=== PATIENT | male | born 1945 | race Caucasian/White ===

== ENCOUNTER → 2017-04-18 | Outpatient (CLI) | payer MEDICARE, OTHER ==
[~2017-04-18] MED LIST: AC325T PO; ACHD5005 PO; ALLO300T2 PO; ALLP300T PO; ASP325T PO; ASP325TEC; ASP81TEC PO; ASPI-983 PO; ATOR80TA76 PO; CARI350T27 PO; CARV12.52; CARV12.53 PO; CARV25TA; CEFE1FRO IV; CEFU500T PO; CEFU500T5 PO; CEPH500C PO; CITA10TA PO; CITA10TA7 PO; CLON0.5T3; CLON0.5T3 PO; CLONAZEPAM; CLOP75TA PO; CLOP75TA28 PO; CLPD75T; CPR500T PO; DGX.125T PO; DIGO125T PO; E400C PO; FLUT16SP22 NS; FLUT16SP22 NSEACH; FRSM40T PO; FURO40TA4 PO; GABA-490 PO; HYDR-2890 PO; HYDR-34 PO; LISI10TA2 PO; LSNP10T PO; MELO-195 PO; MELO15TA39 PO; METO-395 PO; METO100T5 PO; MULT-1029 PO; MULT1TAB63 PO; MV,C1TAB21 PO; NASACORT SPRAY; NF-METANX PO; OMG1KC; OMG1KC PO; OXYC-197 PO; OXYC-471 PO; PRAV40TA PO; PRV20T; SPIR25TA3 PO; SPRN25T PO; TRIA16.5; VITA400C60 PO
--- NOTE | 2017-04-18 12:41 | Diagnostic Imaging Report ---
INDICATION: Benign prostatic hypertrophy. TECHNIQUE: Multiple real-time grayscale sonographic images were obtained of the kidneys. COMPARISON: None FINDINGS: RIGHT KIDNEY: 10.0 x 4.5 x 6.8 cm. Two hypoechoic masses of the right kidney are present most compatible with cysts. Largest measuring 1.6 cm in size. Renal parenchyma otherwise unremarkable. No hydronephrosis. LEFT KIDNEY: 11.6 x 5.6 x 6.9 cm. There are multiple, approximately 7-8 hypoechoic areas of the left kidney favoring probable cyst. Largest in mid aspect at 5.6 x 6.3 x 5.5 cm in size. No hydronephrosis. URINARY BLADDER: Unremarkable in appearance. Bilateral ureteral jets are present. IMPRESSION: 1. Probable bilateral renal cysts left greater than right. Renal parenchyma otherwise unremarkable. No hydronephrosis. Dictated by: Dictated on workstation # [id number]
== END ==
LOC: RAD 09:32
PROVIDERS: ATTEND Urology
DX: N28.9 Disorder of kidney and ureter, unspecified (principal)
CPT/HCPCS: 76770

== ENCOUNTER → 2017-04-25 | Outpatient (CLI) | payer MEDICARE, OTHER | LOC: CARD 11:46 | PROVIDERS: ATTEND Internal Medicine Cardiovascular Disease | DX: I25.10 Atherosclerotic heart disease of native coronary artery without angina pectoris (principal); I11.0 Hypertensive heart disease with heart failure; I50.22 Chronic systolic (congestive) heart failure; E78.2 Mixed hyperlipidemia; G47.33 Obstructive sleep apnea (adult) (pediatric) | CPT/HCPCS: 93306 ==

== ENCOUNTER 2017-05-16 08:49 | Day surgery (SDC) | payer MEDICARE ==
[2017-05-16] VITALS (10 sets, daily range): BP systolic 102–118; BP diastolic 66–87
[~2017-05-16 08:49] MED LIST changes: -ASPI-983 PO; +METO-274 PO; -METO-395 PO; -MV,C1TAB21 PO; -VITA400C60 PO
[2017-05-16] MEDS ORDERED: NS IV 1000 ML 1,000 ML ONE (08:52)
--- OUTSIDE RECORDS SUMMARY | 2017-05-16 08:52 | XMS REPORT | Clinical Summary ---
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 If you do not see the information that you expected, contact Release of Information in the Health Information Management department at [phone] for further assistance in locating additional records.[facility] Allergies No Known Allergies Current Medications Prescription Sig. Disp. Refills Start End Date Status Date Aspirin 81 mg Tab Take 1 Tab by mouth Active daily. clonazePAM (KLONOPIN) 0.5 Take 0.5 mg by mouth at Active mg tablet bedtime daily. spironolactone Take 25 mg by mouth Active (ALDACTONE) 25 mg tablet daily. furosemide (LASIX) 40 mg Take 40 mg by mouth Active tablet daily. allopurinol (ZYLOPRIM) Take 300 mg by mouth Active 300 mg tablet daily. fluticasone (FLONASE) 50 Apply 2 Sprays to each Active mcg/actuation nasal spray nostril as directed daily. [place]-3 Fatty Take 1 Cap by mouth three Active Acids-Vitamin E (FISH times daily. OIL) 1,000 mg cap vitamin E 400 unit Take 400 Units by mouth Active capsule daily. MULTIVITAMIN PO Take 1 Tab by mouth Active daily. digoxin (LANOXIN) 125 mcg Take 0.125 mg by mouth Active tablet daily. METHYL-B12/L-MEFOLATE/B6 Take 1 Tab by mouth twice Active PHOS (METANX PO) daily. metoprolol XL (TOPROL XL) Take 1 Tab by mouth 90 Tab 2 05/21/20 Active 100 mg tablet daily. 14 clopiDOGrel (PLAVIX) 75 Take 1 Tab by mouth 30 Tab 11 11/22/19 Active mg tabletIndications: daily. 15 Chest pain, CAD (coronary artery disease), S/P CABG (coronary artery bypass graft), PVD (peripheral vascular disease) ([facility]), Chronic systolic heart failure ([facility]), Hypertension, Nonsustained ventricular tachycardia ([facility]), Type II diabetes mellitus ([facility]), BLANCA (obstructive sleep apnea), Restless leg syndrome atorvastatin (LIPITOR) 80 Take 1 Tab by mouth 90 Tab 3 11/22/19 Active mg tablet daily. 15 lisinopril (PRINIVIL; Take 1 Tab by mouth 90 Tab 3 01/07/20 Active ZESTRIL) 10 mg tablet daily. 15 Active Problems Problem Noted Date Ventricular tachycardia ([facility]) 11/20/2014 Ventricular fibrillation ([facility]) 11/20/2014 Defibrillator discharge 11/19/2014 Automatic implantable cardioverter-defibrillator in situ 06/11/2013 Overview: 08/10/10 Dual chamber Medtronic ICD implanted by Dr Cobos. Model [id number]. RA lead 5524M, RV lead Tim 6949. [place] Lead Alert for lead fracture. TIA (transient ischemic attack) 06/09/2013 S/P CABG (coronary artery bypass graft) 04/17/2013 Overview: 10/08/97 - CABG X 4, SVG to the OM1, OM2, SVG to the rPDA, MARTINEZ to the DX Type II diabetes mellitus ([facility]) 04/17/2013 Restless leg syndrome 04/17/2013 CAD (coronary artery disease) Overview: 10/08/97 - CABG X 4, SVG to the OM1, OM2, SVG to the rPDA, MARTINEZ to the DX 07/14/2004 - Cath: EF 30% - 100% mid LAD/MARTINEZ, 100% RCA, 100% SVG to OM1,OM2 08/11/2004 - PCI CX/OM with 3.5X16 Taxus 06/29/2008 - MPI: EF 20% fixed defect at the apex with small area of gwendolyn-infarct ischemia 09/23/2008 - Cath: subtotal occlusion of mid LAD, mild to moderate proximal CX with Left to right collateral to RCA, RCA 100%, SVG and MARTINEZ occluded. 04/17/13: Drug-eluting stent PCI of the CFX, CLOCKMAKER of RCA and LAD, per cath by Dr. Portillo Chronic systolic heart failure ([facility]) Overview: 08/10/10 - ICD - Medtronic 02/17/13 - Echocardiogram: EF 20-25%, moderate MR, mild AI, PAP ~ 30mm Hg, echogenic density at the apex possibly representing persistent apical thrombus. Hypertension PVD (peripheral vascular disease) (HCC) Nonsustained ventricular tachycardia (HCC) BLANCA (obstructive sleep apnea) Social History Tobacco Use Types Packs/Day Years Used Date Former Smoker 1.5 45 Quit: 06/22/2010 Sex Assigned at Date Recorded Not on file Last Filed Vital Signs Vital Sign Reading Time Taken Blood Pressure 106/54 11/21/2014 11:30 AM CDT Pulse 70 11/21/2014 11:30 AM CDT Temperature 36.5 C (97.7 F) 11/21/2014 11:30 AM CDT Respiratory Rate - - Oxygen Saturation 94% 11/21/2014 11:30 AM CDT Inhaled Oxygen - - Concentration Weight 121.7 kg (268 lb 4.8 oz) 11/19/2014 11:00 PM CDT Height 190.5 cm (6' 3") 11/19/2014 11:00 PM CDT Body Mass Index 33.54 11/19/2014 11:00 PM CDT Plan of Treatment Health Maintenance Due Date Last Done Comments PHYSICAL (COMPREHENSIVE) 1952 EXAM PERTUSSIS VACCINE 1955 TETANUS VACCINE 1961 COLORECTAL CANCER 1994 SCREENING SHINGLES VACCINE 2004 ABDOMINAL AORTIC ANEURYSM 2009 SCREENING PREVNAR/PNEUMOVAX (#1) 2009 INFLUENZA VACCINE 02/27/2017 Results Not on filefrom Last 3 Months
[2017-05-16] MEDS ORDERED: HEParin (CATH LAB) 2,000 ML IV ONE (08:53)
[2017-05-16] MEDS ORDERED: NS IV 1000 ML 1,000 ML IV SCH ×2 (09:15→12:09)
[2017-05-16 09:35] LABS: MEAN PLATELET VOLUME 11.5 FL (7.4-10.4); RED BLOOD COUNT 4.52 10^6/uL (4.35-5.85); RED CELL DISTRIBUTION WIDTH 14.5 % (10.0-14.5); WHITE BLOOD COUNT 5.9 10^3/uL (4.3-11.0)
--- NOTE | 2017-05-16 09:35 | Diagnostic Imaging Report ---
EXAMINATION: Portable upright radiograph of the chest. INDICATION: Peripheral vascular disease. FINDINGS: The heart is moderately enlarged. There is a pacemaker with 2 cardiac leads noted and post CABG changes. There is no significant focal infiltrate or a pulmonary vascular congestion. No effusion or pneumothorax. The mediastinum and amanda appear unremarkable. IMPRESSION: Marked cardiomegaly. Dictated by: Dictated on workstation # [id number]
[2017-05-16 09:46] LABS: PROTHROMBIN TIME PATIENT 13.7 SEC (12.2-14.7)
[2017-05-16 09:56] LABS: ALBUMIN 4.2 GM/DL (3.2-4.5); BILIRUBIN,TOTAL 1.6 MG/DL (0.1-1.0); CALCIUM 9.9 MG/DL (8.5-10.1); CREATININE SERUM 1.45 MG/DL (0.60-1.30); POTASSIUM 4.6 MMOL/L (3.6-5.0)
[2017-05-16] MEDS ORDERED: ASPI-983 PO (10:03)
[2017-05-16] MEDS ORDERED: OMG1KC PO (10:03)
[2017-05-16] MEDS ORDERED: MV,C1TAB21 PO (10:03)
[2017-05-16] MEDS ORDERED: VITA400C60 PO (10:03)
[2017-05-16] MEDS ORDERED: MIDAZOLAM 5 MG/5 ML (VERSED) VIAL ONE (11:16)
[2017-05-16] MEDS ORDERED: fentaNYL INJECTION 100 MCG/2 ML AMP ONE (11:16)
--- NOTE | 2017-05-16 11:30 | Cardiac Procedure Note-CS/ASA ---
Pre-Procedure Note Pre-Op Procedure Note H&P Reviewed The H&P was reviewed, patient examined and no changes noted. Date H&P Reviewed: May 16, 2017 Time H&P Reviewed: 11:30 Conscious Sedation Pre-Proced Time Reviewed: 11:30 ASA Class: 3 Airway Mallampati Classification: (three affiliated appropriate class) I. II. III, IV Lungs Heart ASA score ASA 1: a normal healthy patient ASA 2: a patient with a mild systemic disease (mid diabetes, controlled hypertension, obesity x ASA 3: a patient with a severe systemic disease that limits activity (angina , COPD, prior Myocardial infarction) ASA 4: a patient with an incapacitating disease that is a constant threat to life (CHF, renal failure) ASA 5: a moribund patient not expected to survive 24 hrs. (ruptured aneurysm) ASA 6: a declared brain patient whose organs are being harvested. For emergent operations, add the letter E after the classification Grade 3 Sedation Plan: Analgesia, Amnesia, Plan communicated to team members, Discussed options with patient/fam, Discussed risks with patient/fam Note The patient is an appropriate candidate to undergo the planned procedure, sedation, and anesthesia. The patient immediately re-assessed prior to indication. MALIK HINTON MD May 16, 2017 11:30
--- NOTE | 2017-05-16 12:10 | Discharge Inst-Post CATH ---
Discharge Inst-CATH Post Cardiac Cath D/C Inst Follow Up/Plan Appointment with Dr. Cobos's office in 2-4 weeks CARDIAC CATH DISCHARGE INSTRUCTIONS *Hold Metformin for 48 hours post heart cath. ACTIVITY * Go Home directly and rest. * Limit activity of the leg (or wrist if it was used) for 7 days including aerobics, swimming, jogging, bicycling, etc. * Restrict stair-climbing for 7 days if possible, if not, climb up with your non -cath leg, then bring together on the same step. * Avoid lifting, pushing, pulling or excessive movement of the affected extremity for 7 days. * Customary sexual activity may be resumed after 2 days-use caution not to use a position that strains or causes pain to the affected extremity. * No driving for 24 hours. * NO SMOKING. * Avoid straining for bowel movements for 7 days. * Gentle walking on level ground is allowed. * Returning to work will depend on the type of procedure and the results. Your doctor will discuss this with you. CALL YOUR DOCTOR FOR ANY OF THE FOLLOWING: *If bleeding from the puncture site occurs- Apply gentle pressure to site with clean cloth and call your doctor or EMS. * If a knot or lump forms under the skin, increases in size, or causes pain. * If bruising appears to be worsening or moving further down your leg instead of disappearing. * Temperature above 101 F. CARE OF YOUR GROIN INCISION; * Bruising or purple discoloration of the skin near the puncture site is common. * You may shower only, no bathtub bathing for 5 days. Be careful to avoid slipping as your leg may feel stiff. * If a closure device was used on your femoral artery, please see the attached guide regarding care of the device and your leg. * REMOVE the dressing from your groin the next day after your procedure in the shower. CARE OF YOUR WRIST INCISION; * Bruising or purple discoloration of the skin near the puncture site is common. * You may shower. * DO NOT submerge wrist. * Remove dressing in 24 hours. MALIK COBOS MD May 16, 2017 12:10
[2017-05-16] MEDS ORDERED: PATIENT MAY USE OWN MEDS, ALL PO SCH (12:15)
--- NOTE | 2017-05-16 12:15 | Peripheral Report ---
Peripheral Report Physician (s)/Document Control Manager (s) Physician MALIK HINTON MD Pre-Procedure Diagnosis Pre-Procedure Diagnosis: peripheral arterial disease Post-Procedure Note Procedure Start Date: May 16, 2017 Name of Procedure: Abdominal aortogram Bilateral lower except he ran out of First order Findings/Procedure Note PROCEDURE NOTE: After explaining the procedure to the patient, all pros and cons were explained, all questions were answered. The patient signed the consent and then she was placed on the cardiac catheterization laboratory. The patient was placed on the cardiac catheterization laboratory. Groin was prepped SL fashion local anesthesia was used. Sheath placed in the left femoral artery, left lower excision runoff was done through the sheath then REM catheter was advanced to the right common iliac artery and runoff on 2 different injections to the right lower except he was done. The rim catheter was pulled back and then advanced in the abdominal aorta and abdominal aortic angiogram was done. Addendum the procedure sheath was removed, closure device used FINDINGS: Abdominal aortogram: Aneurysmal dilatation at the abdominal aorta infrarenally and involving the bifurcation. Heavily calcified arteries Left Lower runoff: Heavily calcified artery with diffuse atherosclerotic disease and slow flow down to the trifurcation, aneurysmal dilation in the popliteal arteries at 2 segments. Right lower extremity runoff: Heavily calcified artery down to the trifurcation with slow flow CONCLUSIONS: 1. Abdominal aortic aneurysm, heavily calcified artery involving the bifurcation 2. Heavily calcified arteries bilaterally with slow flow down to the trifurcation, aneurysm was noted in the popliteal artery on the left side at 2 segments. 3. The arteries below the trifurcation were not well visualized due to the extremely slow flow DISCUSSION AND RECOMMENDATIONS: Medical therapy Anesthesia Type: Conscious Sedation Estimated blood loss (mL): 5 ml Contrast Amount: 25 ml Total Radiation Dose: 231 mGy Post-Procedure Diagnosis Post-operative diagnosis: Peripheral arterial disease Coronary artery disease Hypertension Abdominal aortic aneurysm MALIK HINTON MD May 16, 2017 12:15 pm
== END 2017-05-16 16:45 | disposition home or self-care (01) ==
LOC: CATH 08:49 → SURG 12:27 → CATH 16:45
PROVIDERS: ATTEND Internal Medicine Cardiovascular Disease
DX: I70.203 Unspecified atherosclerosis of native arteries of extremities, bilateral legs (principal); I71.4 Abdominal aortic aneurysm, without rupture; I70.0 Atherosclerosis of aorta; I25.10 Atherosclerotic heart disease of native coronary artery without angina pectoris; E78.2 Mixed hyperlipidemia; I50.22 Chronic systolic (congestive) heart failure; I25.82 Chronic total occlusion of coronary artery; G47.33 Obstructive sleep apnea (adult) (pediatric); G25.81 Restless legs syndrome; N18.9 Chronic kidney disease, unspecified; E11.22 Type 2 diabetes mellitus with diabetic chronic kidney disease; I12.9 Hypertensive chronic kidney disease with stage 1 through stage 4 chronic kidney disease, or unspecified chronic kidney disease; Z95.1 Presence of aortocoronary bypass graft; Z95.0 Presence of cardiac pacemaker; Z79.899 Other long term (current) drug therapy
CPT/HCPCS: 36245; 36415; 71010; 75625; 75716; 80053; 85027; 85610; 85730; 87081

== ENCOUNTER → 2017-06-19 | Outpatient (CLI) | payer MEDICARE ==
[~2017-06-19] MED LIST changes: +ASPI-983 PO; -METO-274 PO; +METO-395 PO; +MV,C1TAB21 PO; +VITA400C60 PO
--- NOTE | 2017-06-19 17:55 | Diagnostic Imaging Report ---
Renal ultrasound. INDICATION: Chronic renal disease. FINDINGS: The right kidney is 10.9 cm and the left kidney is 16 cm in length. This relates to an inferior pole cyst and approximate estimate of the parenchymal length without the cyst is about 12.5 cm on the left side. There are multiple simple cysts in the left kidney, the largest is 6.5 cm in size. This is similar to prior exams. The right kidney also demonstrates simple cysts up to 1.4 cm in size. There is an incidental simple cyst also seen in the lower aspect of the right hepatic lobe measuring 2 cm. No hydronephrosis. No solid mass in the kidneys. The urinary bladder appears unremarkable. IMPRESSION: Multiple bilateral cysts with no solid mass or hydronephrosis. Dictated by: Dictated on workstation # [id number]
== END ==
LOC: RAD 10:28
PROVIDERS: ATTEND Nurse Practitioner
DX: N28.1 Cyst of kidney, acquired (principal); N18.3 Chronic kidney disease, stage 3 (moderate)
CPT/HCPCS: 76770

== ENCOUNTER → 2017-09-20 | Outpatient (CLI) | payer MEDICARE, OTHER ==
[~2017-09-20] MED LIST changes: +IOHEXOL 350 MG/ML 100 ML (OMNIPAQUE 350) VIAL IV ONE; +NS 250 ML (IVPB) BAG IV ONE
[2017-09-20 12:13] LABS: CREATININE SERUM 1.45 MG/DL (0.60-1.30)
--- NOTE | 2017-09-20 14:53 | Diagnostic Imaging Report ---
PROCEDURE: CT thoracic and lumbar spine with contrast. TECHNIQUE: After uneventful intravenous administration of contrast, axial images were obtained through the thoracic and lumbar spine. Sagittal and coronal reformations were also performed. INDICATION: Bilateral leg weakness and numbness. COMPARISON: No prior studies are available for comparison. FINDINGS: Curvature and alignment of the thoracic spine appears normal. The vertebral body heights are maintained. No acute fracture is identified. There is significant degenerative change throughout the thoracic and lumbar spine with variable disc space narrowing and marginal osteophyte formation. There are significant hypertrophic facet degenerative changes in the lower lumbar spine. A prominent left paracentral osteophyte at the T1-T2 level does result in left lateral recess stenosis. Prominent right posterolateral osteophyte at T2-T3 results in right lateral recess and neuroforaminal stenosis. Similar findings identified on the right at the T3-T4 level. Small right paracentral osteophyte is seen at T5-T6 with a large right paracentral osteophyte at T6-T7 level resulting in right lateral recess stenosis. Marginal osteophytes on the right side at T9-T10 level do result in right-sided lateral recess and neuroforaminal stenosis. Lumbar spine does show fairly significant ligamentous thickening, broad-based disc/osteophyte complex, and facet changes resulting in significant trefoil stenosis through the canal at the L1-L2, L2-L3 levels. This is severe at L3-L4 and L4-L5 levels where there is marked spinal stenosis and marked hypertrophic facet changes. L5-S1 is unremarkable. There appears to be severe right neuroforaminal stenosis at the L4-L5 level and severe bilateral lateral recess stenosis. Fairly significant neuroforaminal stenosis at L3-L4 level is also seen. No definite abnormal enhancement is identified on the post contrast images. Paraspinous tissues demonstrate some low densities in bilateral kidneys, likely cysts. There are some low densities in the liver, not entirely included on this study and may represent hepatic cysts. These could be evaluated with ultrasound for confirmation. IMPRESSION: 1. Severe thoracolumbar spondylosis with multilevel lateral recess, neuroforaminal and central canal stenosis, described level by level above. This is very severe in the lumbar spine, as described. No acute compression fracture is detected. 2. Probable hepatic and renal cysts. This could be further characterized with ultrasound. Dictated by: Dictated on workstation # [id number]
== END ==
LOC: RAD 11:38
PROVIDERS: ATTEND Family Medicine
DX: M48.04 Spinal stenosis, thoracic region (principal); M48.061 Spinal stenosis, lumbar region without neurogenic claudication; M47.815 Spondylosis without myelopathy or radiculopathy, thoracolumbar region; M89.38 Hypertrophy of bone, other site
CPT/HCPCS: 36415; 72129; 72132; 82565; 84520

== ENCOUNTER 2017-11-29 09:23 | Outpatient (RCR) | payer MEDICARE, OTHER ==
[~2017-11-29 09:23] MED LIST changes: -IOHEXOL 350 MG/ML 100 ML (OMNIPAQUE 350) VIAL IV ONE; -NS 250 ML (IVPB) BAG IV ONE
== END 2017-11-29 11:25 | disposition home or self-care (01) ==
PROVIDERS: ATTEND Family Medicine
DX: R26.89 Other abnormalities of gait and mobility (principal)

== ENCOUNTER → 2018-02-25 | Outpatient (CLI) | payer MEDICARE, OTHER ==
[~2018-02-25] MED LIST changes: +CLON0.5T13 PO; -SPIR25TA3 PO; +SPIR25TA5 PO
--- NOTE | 2018-02-25 16:56 | Diagnostic Imaging Report ---
INDICATION: Spinal stenosis and neurogenic claudication. TECHNIQUE: AP and lateral views of the lumbar spine were obtained including bending views. COMPARISON: 05/15/2007. FINDINGS: The lumbar vertebrae are normal in height. There are bulky anterior osteophytes throughout the levels from T12 through L3. There are small osteophytes at L4 and L5. There is facet degenerative change at L3-4, L4-5, and L5-S1. There is about 4 mm of anterolisthesis of L4 on L5 in the neutral position. This does not appear to change between flexion and extension. There is no subluxation at any other level. Aortic calcifications are noted. IMPRESSION: Multilevel degenerative changes in the lumbar spine as described above. There is anterolisthesis of L4 on L5 which does not appear to change between flexion and extension. Dictated by: Dictated on workstation # [id number]
== END ==
LOC: RAD 16:08
PROVIDERS: ATTEND Neurological Surgery
DX: M48.062 Spinal stenosis, lumbar region with neurogenic claudication (principal); M43.16 Spondylolisthesis, lumbar region; M47.817 Spondylosis without myelopathy or radiculopathy, lumbosacral region; I70.0 Atherosclerosis of aorta
CPT/HCPCS: 72114

== ENCOUNTER 2018-04-25 15:04 | Outpatient (RCR) | payer MEDICARE, OTHER ==
[~2018-04-25 15:04] MED LIST changes: -OXYC-197 PO; +OXYC1TAB87 PO
== END 2018-04-30 08:10 | disposition home or self-care (01) ==
PROVIDERS: ATTEND Neurological Surgery
DX: M48.062 Spinal stenosis, lumbar region with neurogenic claudication (principal); M43.16 Spondylolisthesis, lumbar region

== ENCOUNTER → 2018-05-16 | Outpatient (CLI) | payer MEDICARE, OTHER ==
--- NOTE | 2018-05-16 11:30 | Diagnostic Imaging Report ---
PROCEDURE: US Renal Bilateral. TECHNIQUE: Multiple real-time grayscale images were obtained over the kidneys in various projections bilaterally. INDICATION: Renal cysts. Comparison is made with prior renal ultrasound from 06/19/2017. FINDINGS: The right kidney measures 10.3 x 4.8 x 6.1 cm and the left kidney measures 9.4 x 6.9 x 5.7 cm. Cortical thickness and echogenicity is normal. There are cysts involving the right kidney. A mid right renal cyst is approximately 15 mm in size, stable. A cyst along the inferior right kidney laterally is approximately 15 mm x 18 mm, stable. Left kidney also contains multiple cysts, largest approximately 6.2 x 6.6 cm, stable. No calculi or hydronephrosis is identified. The bladder is unremarkable. Bilateral ureteral jets are visualized. IMPRESSION: Stable bilateral renal cysts when compared with prior study from 06/19/2017. No calculi, hydronephrosis or solid renal mass is identified. Dictated by: Dictated on workstation # [id number]
== END ==
LOC: RAD 09:04
PROVIDERS: ATTEND Nurse Practitioner
DX: N28.1 Cyst of kidney, acquired (principal); I12.9 Hypertensive chronic kidney disease with stage 1 through stage 4 chronic kidney disease, or unspecified chronic kidney disease; N18.3 Chronic kidney disease, stage 3 (moderate); E11.22 Type 2 diabetes mellitus with diabetic chronic kidney disease; E78.5 Hyperlipidemia, unspecified; M10.9 Gout, unspecified; I48.91 Unspecified atrial fibrillation; M19.90 Unspecified osteoarthritis, unspecified site; F41.9 Anxiety disorder, unspecified; D69.6 Thrombocytopenia, unspecified; N25.81 Secondary hyperparathyroidism of renal origin; G62.9 Polyneuropathy, unspecified
CPT/HCPCS: 76770

== ENCOUNTER 2018-07-11 10:30 | Outpatient (RCR) | payer MEDICARE, OTHER | END 2018-07-30 | disposition home or self-care (01) | PROVIDERS: ATTEND Neurological Surgery | DX: M48.062 Spinal stenosis, lumbar region with neurogenic claudication (principal); M43.16 Spondylolisthesis, lumbar region ==

== ENCOUNTER → 2018-07-26 | Outpatient (CLI) | payer MEDICARE, OTHER | LOC: CARD 13:12 | PROVIDERS: ATTEND Internal Medicine Interventional Cardiology | DX: I50.22 Chronic systolic (congestive) heart failure (principal); I25.5 Ischemic cardiomyopathy; I47.2 Ventricular tachycardia; I08.1 Rheumatic disorders of both mitral and tricuspid valves | CPT/HCPCS: 93306 ==

== ENCOUNTER 2018-09-12 05:28 | Outpatient (CLI) | payer MEDICARE, OTHER ==
[~2018-09-12] VITALS: Ht 190.5 cm; Wt 127.0 kg
[~2018-09-12 05:28] MED LIST changes: +AMIO200T4 PO; +ATOR20TA66 PO; +LISI2.5T PO; +NITR0.4T42 SL; +TERB250T16 PO
== END 2018-09-12 13:52 | disposition home or self-care (01) ==
LOC: PREOP 05:28
PROVIDERS: ATTEND Surgery
DX: Z01.818 Encounter for other preprocedural examination (principal)

== ENCOUNTER 2018-09-23 10:57 | Day surgery (SDC) | payer MEDICARE, OTHER ==
[~2018-09-23] VITALS: Ht 190.5 cm; Wt 127.0 kg
--- OUTSIDE RECORDS SUMMARY | 2018-09-23 11:01 | XMS REPORT | Clinical Summary ---
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 If you do not see the information that you expected, contact Release of Information in the Health Information Management department at [phone] for further assistance in locating additional records.[facility] Allergies No Known Allergies Medications End Date Status Medication Sig Dispensed Refills Start Date Active Aspirin 81 mg Tab Take 1 Tab by 0 mouth daily. Active clonazePAM (KLONOPIN) 0.5 Take 0.5 mg 0 mg tablet by mouth at bedtime daily. Active spironolactone Take 25 mg by 0 (ALDACTONE) 25 mg tablet mouth daily. Active furosemide (LASIX) 40 mg Take 40 mg by 0 tablet mouth daily. Active allopurinol (ZYLOPRIM) Take 300 mg 0 300 mg tablet by mouth daily. Active fluticasone (FLONASE) 50 Apply 2 0 mcg/actuation nasal spray Sprays to each nostril as directed daily. Active [place]-3 Fatty Take 1 Cap by 0 Acids-Vitamin E (FISH mouth three OIL) 1,000 mg cap times daily. Active vitamin E 400 unit Take 400 0 capsule Units by mouth daily. Active MULTIVITAMIN PO Take 1 Tab by 0 mouth daily. Active digoxin (LANOXIN) 125 mcg Take 0.125 mg 0 tablet by mouth daily. Active METHYL-B12/L-MEFOLATE/B6 Take 1 Tab by 0 PHOS (METANX PO) mouth twice daily. Active metoprolol XL (TOPROL XL) Take 1 Tab by 90 Tab 2 100 mg tablet mouth daily. 4 Active clopiDOGrel (PLAVIX) 75 Take 1 Tab by 30 Tab 11 mg tabletIndications: mouth daily. 5 Chest pain, CAD (coronary artery disease), S/P CABG (coronary artery bypass graft), PVD (peripheral vascular disease) ([facility]), Chronic systolic heart failure ([facility]), Hypertension, Nonsustained ventricular tachycardia ([facility]), Type II diabetes mellitus ([facility]), BLANCA (obstructive sleep apnea), Restless leg syndrome Active atorvastatin (LIPITOR) 80 Take 1 Tab by 90 Tab 3 mg tablet mouth daily. 5 Active lisinopril (PRINIVIL; Take 1 Tab by 90 Tab 3 ZESTRIL) 10 mg tablet mouth daily. 5 Active Problems Problem Noted Date Ventricular tachycardia 11/20/2014 Ventricular fibrillation 11/20/2014 Defibrillator discharge 11/19/2014 Automatic implantable cardioverter-defibrillator in situ 06/11/2013 Overview: 08/10/10 Dual chamber Medtronic ICD implanted by Dr Cobos. Model [id number]. RA lead 5524M, RV lead Tim 6949. [place] Lead Alert for lead fracture. TIA (transient ischemic attack) 06/09/2013 S/P CABG (coronary artery bypass graft) 04/17/2013 Overview: 10/08/97 - CABG X 4, SVG to the OM1, OM2, SVG to the rPDA, MARTINEZ to the DX Type II diabetes mellitus 04/17/2013 Restless leg syndrome 04/17/2013 CAD (coronary [...] 04/17/13: Drug-eluting stent PCI of the CFX, FILLER IN of RCA and LAD, per cath by Dr. Portillo Chronic systolic heart failure Overview: 1/12/11 - ICD - Medtronic 02/17/13 - Echocardiogram: EF 20-25%, moderate MR, mild AI, PAP ~ 30mm Hg, echogenic density at the apex possibly representing persistent apical thrombus. Hypertension PVD (peripheral vascular disease) Nonsustained ventricular tachycardia BLANCA (obstructive sleep apnea) Social History Date Tobacco Use Types Packs/Day Years Used Quit: 06/22/2010 Former Smoker 1.5 44 Sex Assigned at Date Recorded Not on file Industry Job Start Date Occupation Not on file Not on file Not on file Travel End Travel History Travel Start No recent travel history available. Last Filed Vital Signs Time Taken Vital Sign Reading 11/21/2014 11:30 AM CDT Blood Pressure 106/54 11/21/2014 11:30 AM CDT Pulse 70 11/21/2014 11:30 AM CDT Temperature 36.5 C (97.7 F) - Respiratory Rate - 11/21/2014 11:30 AM CDT Oxygen Saturation 94% - Inhaled Oxygen - Concentration 11/19/2014 11:00 PM CDT Weight 121.7 kg (268 lb 4.8 oz) 11/19/2014 11:00 PM CDT Height 190.5 cm (6' 3") 11/19/2014 11:00 PM CDT Body Mass Index 33.54 Plan of Treatment Health Maintenance Due Date Last Done Comments PHYSICAL (COMPREHENSIVE) 1952 EXAM DTAP/TDAP VACCINES (1 - 1962 Tdap) COLORECTAL CANCER 1994 SCREENING SHINGLES RECOMBINANT 1994 VACCINE (1 of 2) ABDOMINAL AORTIC ANEURYSM 2009 SCREENING PNEUMONIA (PCV13/PPSV23) 2009 VACCINES (1 of 2 - PCV13) INFLUENZA VACCINE 02/27/2018 Implants Device Identifier Shelf Expiration Date Model / Serial / Lot Implanted Type Area Manufactur er Icd ICD Results Not on filefrom Last 3 Months Insurance Payer Benefit Subscriber ID Type Phone Address Plan / Group MEDICARE MEDICARE xxxxxxxxxx Medicare PART A AND B GENERIC COMMERCIAL GENERIC xxxxxxxxx Indemnity COMMERCIAL ([place]) [place] [address] Advance Directives Patient has advance care planning documents, and code status on file. For more information, please contact: [facility] [address] [place] [address] Date Inactivated Comments Code Status Date Activated 11/21/2014 1:46 PM Full Code 11/19/2014 11:23 PM Provider has discussed Code Status Yes w/Patient or Family? 04/18/2013 1:01 PM Full Code 04/17/2013 8:18 AM Provider has discussed Code Status No, more discussion w/Patient or Family? needed
--- OUTSIDE RECORDS SUMMARY | 2018-09-23 11:03 | XMS REPORT | CCD ---
Author Author [facility] Organization [facility] Address [address] [place] [address] Phone Care Team Providers Care Bobj Developer Name Role Phone PP Unavailable CCM Unavailable Summary Purpose Interface Exchange Insurance Providers Payer name Policy type / Coverage type Covered constitution party ID Effective Begin Date Effective End Date WPS Medicare Part B Medicare Part B [id number] Unknown Anagran Medicare Part B No Plan Member ID Provided 2018 Unknown Family history Sister Diagnosis Age At Onset Hypertension Unknown Diabetes mellitus Type 2 Unknown Father Diagnosis Age At Onset Diabetes mellitus Type 2 Unknown Arthritis Unknown Hypertension Unknown Myocardial infarction Unknown Social History Social History Element Codes Description Effective Dates Marital status Unknown Cely 04/11/2017 Number of children Unknown 5 04/11/2017 Living arrangements Unknown House 04/11/2017 Employment Unknown 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 ICD-9: 428.42 ICD-10: I50.42 Active 09/04/2018 Unknown Essential (primary) hypertension ICD-9: 401.1 ICD-10: I10 Active 04/11/2017 Unknown Muscle weakness (generalized) ICD-9: 728.87 ICD-10: M62.81 Active 09/12/2017 Unknown Other fatigue ICD-9: 780.79 ICD-10: R53.83 Active 09/04/2018 Unknown Cellulitis of back [any part except buttock] ICD-9: 682.2 ICD-10: L03.312 Active 09/04/2018 Unknown Sebaceous cyst ICD-9: 706.2 ICD-10: L72.3 Active 09/04/2018 Unknown Low back pain ICD-9: 724.2 ICD-10: M54.5 Active 09/12/2017 Unknown Pain in left leg ICD-9 : 729.5 ICD-10: M79.605 Active 07/25/2018 Unknown Pain in right leg ICD- 9: 729.5 ICD-10: M79.604 Active 07/25/2018 Unknown Sacrococcygeal disorders, not elsewhere classified ICD-9: 724.6 ICD-10: M53.3 Active 07/25/2018 Unknown Encounter for general adult medical examination with abnormal findings ICD-9: V70.0 ICD-10: Z00.01 Active 05/30/2018 Unknown Rash and other nonspecific skin eruption ICD-9: 782.1 ICD-10: R21 Active 03/06/2018 Unknown Corns and callosities ICD-9: 700 ICD-10: L84 Active 04/10/2018 Unknown Other specified polyneuropathies ICD-9: 356.8 ICD-10: G62.89 Active 04/10/2018 Unknown Mixed hyperlipidemia ICD-9: 272.2 ICD-10: E78.2 Active 04/11/2017 Unknown Problems Condition Codes Effective Dates Condition Status 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 ICD-9: 428.42 ICD-10: I50.42 09/04/2018 Active Essential (primary) hypertension ICD-9: 401.1 ICD-10: I10 04/11/2017 Active Muscle weakness (generalized) ICD-9: 728.87 ICD-10: M62.81 09/12/2017 Active Other fatigue ICD-9: 780.79 ICD-10: R53.83 09/04/2018 Active Cellulitis of back [any part except buttock] ICD-9: 682.2 ICD-10: L03.312 09/04/2018 Active Sebaceous cyst ICD-9: 706.2 ICD-10: L72.3 09/04/2018 Active Low back pain ICD-9: 724.2 ICD-10: M54.5 09/12/2017 Active Pain in left leg ICD-9 : 729.5 ICD-10: M79.605 07/25/2018 Active Pain in right leg ICD- 9: 729.5 ICD-10: M79.604 07/25/2018 Active Sacrococcygeal disorders, not elsewhere classified ICD-9: 724.6 ICD-10: M53.3 07/25/2018 Active Encounter for general adult medical examination with abnormal findings ICD-9: V70.0 ICD-10: Z00.01 05/30/2018 Active Rash and other nonspecific skin eruption ICD-9: 782.1 ICD-10: R21 03/06/2018 Active Corns and callosities ICD-9: 700 ICD-10: L84 04/10/2018 Active Other specified polyneuropathies ICD-9: 356.8 ICD-10: G62.89 04/10/2018 Active Mixed hyperlipidemia ICD-9: 272.2 ICD-10: E78.2 04/11/2017 Active Medications Medication Codes Instructions Start Date Stop Date Status Fill Instructions clobetasol 0.05 % topical cream RxNorm: 121303 2 Gram(s) TOP BID 09/04/2018 11/02/2018 Active clotrimazole 1 % topical cream RxNorm: 661645 2 Gram(s) TOP BID 09/04/2018 11/02/2018 Active citalopram 20 mg tablet RxNorm: 230149 1 Tablet(s) PO daily 12/2018 No Stop Date Active Keflex 500 mg capsule RxNorm: 589799 1 Capsule(s) PO QID 201809/13/2018 Inactive metoprolol succinate ER 100 mg tablet,extended release 24 hr RxNorm: 161251 TAKE 1 TABLET BY MOUTH ONCE DAILY 09/02/2018 No Stop Date Active terbinafine HCl 250 mg tablet RxNorm: 362835 TAKE 1 TABLET BY MOUTH ONCE DAILY 08/27/2018 No Stop Date Active gabapentin 400 mg capsule RxNorm: 798304 1 Capsule(s) PO UD TAKE 1 CAPSULE BY MOUTH in morning, afternoon and two at bedtime 07/25/2018 No Stop Date Active gabapentin 400 mg capsule RxNorm: 782129 TAKE 1 CAPSULE BY MOUTH THREE TIMES DAILY 07/01/2018 07/24/2018 Inactive allopurinol 300 mg tablet RxNorm: 355481 TAKE 1 TABLET BY MOUTH ONCE DAILY 06/25/2018 No Stop Date Active clonazepam 0.5 mg tablet RxNorm: 099582 1 Tablet(s) PO QHS as needed 06/25/2018 09/22/2018 Active citalopram 10 mg tablet RxNorm: 578990 TAKE 1 TABLET BY MOUTH ONCE DAILY 06/19/2018 09/03/2018 Inactive terbinafine HCl 250 mg tablet RxNorm: 623819 TAKE 1 TABLET BY MOUTH ONCE DAILY 05/20/2018 08/26/2018 Inactive atorvastatin 80 mg tablet RxNorm: 301127 1/2 Tablet(s) PO daily 05/08/2018 No Stop Date Active clobetasol 0.05 % topical cream RxNorm: 557667 2 Gram(s) TOP BID 05/08/2018 07/06/2018 Inactive clotrimazole 1 % topical cream RxNorm: 958825 2 Gram(s) TOP BID 05/08/2018 07/06/2018 Inactive allopurinol 300 mg tablet RxNorm: 868233 TAKE 1 TABLET BY MOUTH ONCE DAILY 05/06/2018 06/24/2018 Inactive terbinafine HCl 250 mg tablet RxNorm: 656835 1 Tablet(s) PO daily 04/23/2018 05/19/2018 Inactive gabapentin 400 mg capsule RxNorm: 453519 TAKE 1 CAPSULE BY MOUTH THREE TIMES DAILY 04/22/2018 06/30/2018 Inactive clotrimazole 1 % topical cream RxNorm: 369761 2 Gram(s) TOP BID 04/10/2018 04/23/2018 Inactive clobetasol 0.05 % topical cream RxNorm: 924078 2 Gram(s) TOP BID 04/10/2018 04/23/2018 Inactive clonazepam 0.5 mg tablet RxNorm: 322593 1 Tablet(s) PO QHS as needed 03/19/2018 09/17/2018 Inactive clobetasol 0.05 % topical cream RxNorm: 550306 2 Gram(s) TOP BID 03/06/2018 03/19/2018 Inactive clotrimazole 1 % topical cream RxNorm: 567854 2 Gram(s) TOP BID 03/06/2018 03/19/2018 Inactive metoprolol succinate ER 100 mg tablet,extended release 24 hr RxNorm: 990703 TAKE 1 TABLET BY MOUTH ONCE DAILY 02/25/2018 Inactive gabapentin 400 mg capsule RxNorm: 425833 TAKE 1 CAPSULE BY MOUTH THREE TIMES DAILY 02/21/2018 04/21/2018 Inactive citalopram 10 mg tablet RxNorm: 562783 1 Tablet(s) PO daily 06/201806/06/2018 Inactive allopurinol 300 mg tablet RxNorm: 399425 TAKE 1 TABLET BY MOUTH ONCE DAILY 01/28/2018 05/05/2018 Inactive clonazepam 0.5 mg tablet RxNorm: 280492 1 Tablet(s) PO QHS as needed 01/14/2018 03/12/2018 Inactive fluticasone 50 mcg/actuation nasal spray,suspension RxNorm: 5882200 USE ONE SPRAY( S) IN EACH NOSTRIL ONCE DAILY 12/20/2017 No Stop Date Active allopurinol 300 mg tablet RxNorm: 414609 TAKE ONE TABLET BY MOUTH ONCE DAILY 10/18/2017 01/27/2018 Inactive clonazepam 0.5 mg tablet RxNorm: 295141 1 Tablet(s) PO QHS as needed 10/11/2017 01/07/2018 Inactive gabapentin 400 mg capsule RxNorm: 224059 TAKE ONE CAPSULE BY MOUTH THREE TIMES DAILY 09/19/2017 02/20/2018 Inactive metoprolol succinate ER 100 mg tablet,extended release 24 hr RxNorm: 464334 TAKE ONE TABLET BY MOUTH ONCE DAILY 09/19/2017 02/24/2018 Inactive clonazepam 0.5 mg tablet RxNorm: 438980 1 Tablet(s) PO QHS as needed 08/14/2017 05/07/2018 Inactive fluticasone 50 mcg/actuation nasal spray,suspension RxNorm: 0833043 1 [place] NASAL daily 08/09/2017 12/19/2017 Inactive amoxicillin 500 mg capsule RxNorm: 954742 1 Capsule(s) PO TID 07/27/2017 08/02/2017 Inactive amoxicillin 500 mg capsule RxNorm: 139912 1 Capsule(s) PO TID 07/27/2017 07/26/2017 Inactive allopurinol 300 mg tablet RxNorm: 436821 1 Tablet(s) PO daily 06/27/2017 09/24/2017 Inactive Keflex 500 mg capsule RxNorm: 364144 1 Capsule(s) PO TID 201606/07/2017 Inactive Take probiotic TID while on ABT Keflex 500 mg capsule RxNorm: 247909 1 Capsule(s) PO TID 201606/14/2017 Inactive Take probiotic TID while on ABT clonazepam 0.5 mg tablet RxNorm: 525833 1 Tablet(s) PO QHS as needed 04/30/2017 05/07/2018 Inactive meloxicam 15 mg tablet RxNorm: 230631 1 Tablet(s) PO daily 09/11/2017 Inactive metoprolol succinate ER 100 mg tablet,extended release 24 hr RxNorm: 670212 1 Tablet(s) PO daily 04/16/2017 09/12/2017 Inactive gabapentin 400 mg capsule RxNorm: 243913 1 Capsule(s) PO TID 09/12/2017 Inactive Complete Multivitamin oral RxNorm: 64602 oral No Start Date Active Aspirin Low Dose 81 mg tablet,delayed release RxNorm: 353011 2 Tablet(s) PO daily No Start Date Active furosemide 40 mg tablet RxNorm: 827088 1 Tablet(s) PO daily No Start Date Active spironolactone 25 mg tablet RxNorm: 710789 1 Tablet(s) PO daily No Start Date Active amiodarone 200 mg tablet RxNorm: 774003 1 Tablet(s) PO daily No Start Date Active Fish Oil capsule RxNorm: Capsule(s) PO No Start Date Active vitamin E 400 unit capsule RxNorm: 277166 1 Capsule(s) PO daily No Start Date Active citalopram 10 mg tablet RxNorm: 441214 1 Tablet(s) PO daily No Start Date 02/06/2018 Inactive lisinopril 10 mg tablet RxNorm: 238363 1 Tablet(s) PO daily No Start Date 05/07/2018 Inactive lisinopril 2.5 mg tablet RxNorm: 997573 1 Tablet(s) PO daily No Start Date 09/17/2018 Inactive digoxin 125 mcg tablet RxNorm: 614038 1 Tablet(s) PO daily No Start Date 05/07/2018 Inactive Lamisil oral RxNorm: oral No Start Date Inactive atorvastatin 80 mg tablet RxNorm: 610245 1 Tablet(s) PO daily No Start Date 05/07/2018 Inactive gabapentin 400 mg capsule RxNorm: 120171 1 Capsule(s) PO TID No Start Date 04/15/2017 Inactive allopurinol 300 mg tablet RxNorm: 964812 1 Tablet(s) PO daily No Start Date 06/26/2017 Inactive metoprolol succinate ER 100 mg tablet,extended release 24 hr RxNorm: 932351 1 Tablet(s) PO daily No Start Date 2016 Inactive fluticasone 50 mcg/actuation nasal spray,suspension RxNorm: 9466056 [place] NASAL No Start Date 08/08/2017 Inactive Entresto 49 mg-51 mg tablet RxNorm: 9812279 2 Tablet(s) PO daily No Start Date 05/07/2018 Inactive clonazepam 0.5 mg tablet RxNorm: 319490 1 Tablet(s) PO QHS No Start Date 04/29/2017 Inactive meloxicam 15 mg tablet RxNorm: 578910 1 Tablet(s) PO daily No Start Date 04/15/2017 Inactive Medication Administered No Medication Administered data Immunizations Vaccine Codes Date Status Influenza CVX: 141 05/03/2018 completed Assessments Condition Codes Effective Dates Chronic combined systolic (congestive) and diastolic (congestive) heart failure ICD-10: I50.42 ICD-9: 428.42 09/18/2018 Muscle weakness (generalized) ICD-10: M62.81 ICD-9: 728.87 09/18/2018 Other fatigue ICD-10: R53.83 ICD-9: 780.79 09/18/2018 Essential (primary) hypertension ICD-10: I10 ICD-9: 401.1 09/04/2018 Sebaceous cyst ICD-10: L72.3 ICD-9: 706.2 09/04/2018 Cellulitis of back [any part except buttock] ICD-10: L03.312 ICD-9: 682.2 09/04/2018 Low back pain ICD-10: M54.5 ICD-9: 724.2 07/25/2018 Pain in left leg ICD-10: M79.605 ICD-9: 729.5 07/25/2018 Sacrococcygeal disorders, not elsewhere classified ICD-10: M53.3 ICD-9: 724.6 07/25/2018 Pain in right leg ICD-10: M79.604 ICD-9: 729.5 07/25/2018 Encounter for general adult medical examination with abnormal findings ICD-10: Z00.01 ICD-9: V70.0 05/30/2018 Rash and other nonspecific skin eruption ICD-10: R21 ICD-9: 782.1 05/08/2018 Other specified polyneuropathies ICD-10: G62.89 ICD-9: 356.8 04/10/2018 Corns and callosities ICD-10: L84 ICD-9: 700 04/10/2018 Mixed hyperlipidemia ICD-10: E78.2 ICD-9: 272.2 03/06/2018 Reason For Visit Reason For Visit Effective Dates Notes hypertension 09/18/2018 hypertension 09/04/2018 knee pain 07/25/2018 Annual Medicare Wellness Exam 05/30/2018 paresthesia 05/08/2018 skin lesion 04/10/2018 paresthesia 03/06/2018 paresthesia 11/07/2017 paresthesia 09/12/2017 hypertension 04/11/2017 Results Observation Observation Code Item Item Code Result Date UA W/MICR 1701693 UA Protein 1+ 06/07/2017 UA W/MICR 8601963 UA Hemoglobin Negative 06/07/2017 UA W/MICR 2405599 UA Glucose Negative 06/07/2017 UA W/MICR 1614122 UA Ketones Negative 06/07/2017 UA W/MICR 2863249 UA pH 8.5 06/07/2017 UA W/MICR 0571539 U Spec [place] 1.011 06/07/2017 UA W/MICR 2294269 UA Bilirubin Negative 06/07/2017 UA W/MICR 6010308 UA Leuk Esteras 3+ 06/07/2017 UA W/MICR 3205801 UA Nitrite Positive 06/07/2017 UA W/MICR 9726603 UA WBC/hpf 1 06/07/2017 UA W/MICR 1797517 UA RBC hpf 0 06/07/2017 UA W/MICR 7101113 UA RBC auto 2.3 /uL 06/07/2017 UA W/MICR 1921341 UA WBC auto 3.1 /uL 06/07/2017 UA W/MICR 5669134 UA SQ EPI auto 1.4 /uL 06/07/2017 UA W/MICR 4834581 UA H Cast auto 0.10 /uL 06/07/2017 PROT CR RU [id number] U Protein 23 mg/dL 06/07/2017 PROT CR RU [id number] U Creatinine 59 mg/dL 06/07/2017 PROT CR RU [id number] Prot:Creat Rat 390 mg/g 06/07/2017 GFR CALC 0917688 GFR Non Afr Amr 44 mL/min 06/06/2017 GFR CALC 2773397 GFR Afr Amr 53 mL/min 06/06/2017 CBC 9250791 WBC 6.0 10e9/L 06/06/2017 CBC 6659437 RBC 4.54 10e12/L 06/06/2017 CBC 1007077 HEMOGLOBIN 15.1 g/dL 06/06/2017 CBC 8368684 HEMATOCRIT 45.6 % 06/06/2017 CBC 0635958 MCV 100.4 fL 06/06/2017 CBC 3523526 MCH 33.3 pg 06/06/2017 CBC 4201285 MCHC 33.1 g/dL 06/06/2017 CBC 7064554 PLATELET COUNT 109 10e9/L 06/06/2017 CBC 4834184 Mean Plt Volume 12.5 fL 06/06/2017 CBC 5315292 Neut Auto 61.4 % 06/06/2017 CBC 5505172 Lymph Auto 24.1 % 06/06/2017 CBC 8584447 [place] Auto 10.9 % 06/06/2017 CBC 3171253 RDW 15.0 % 06/06/2017 CBC 5987751 Eos Auto 3.3 % 06/06/2017 CBC 4543276 Baso Auto 0.3 % 06/06/2017 CBC 1751611 Neutrophil Abs 3.68 10e9/L 06/06/2017 CBC 5510700 Lymphocyte Abs 1.45 10e9/L 06/06/2017 CBC 9337388 Monocyte Abs 0.65 10e9/L 06/06/2017 CBC 1150527 Eosinophil Abs 0.20 10e9/L 06/06/2017 CBC 0059792 RDW-SD 53.7 fL 06/06/2017 CBC 4078154 Basophil Abs 0.02 10e9/L 06/06/2017 RENAL [place] [id number] BUN 24 mg/dL 06/06/2017 RENAL AZ 20271222 CREATININE 1.57 mg/dL 06/06/2017 RENAL [place] 20271222 PHOSPHORUS 3.2 mg/dL 06/06/2017 RENAL [place] 20271222 CALCIUM 9.9 mg/dL 06/06/2017 RENAL AZ 20271222 POTASSIUM 4.8 mmol/L 06/06/2017 RENAL AZ 20271222 SODIUM 137 mmol/L 06/06/2017 RENAL AZ 4331854 ALBUMIN 4.3 g/dL 06/06/2017 RENAL [place] 20271222 CHLORIDE 106 mmol/L 06/06/2017 RENAL [place] 20271222 Bicarbonate 26 mmol/L 06/06/2017 RENAL [place] 20271222 GLUCOSE 111 mg/dL 06/06/2017 LIPID GRP CHOLESTEROL 97 mg/dL 04/11/2017 LIPID GRP Triglyceride 204 mg/dL 04/11/2017 LIPID GRP HDL CHOLESTEROL 28 mg/dL 04/11/2017 LIPID GRP Chol/HDL Ratio 3.46 ratio 04/11/2017 LIPID GRP NON-HDL Chol 69 mg/dL 04/11/2017 LIPID GRP LDL Cholesterol 28 mg/dL 04/11/2017 CBC 4793771 WBC 7.0 10e9/L 04/11/2017 CBC 1330975 RBC 4.48 10e12/L 04/11/2017 CBC 7669472 HEMOGLOBIN 14.9 g/dL 04/11/2017 CBC 5246515 HEMATOCRIT 45.0 % 04/11/2017 CBC 4510986 MCV 100.4 fL 04/11/2017 CBC 9610025 MCH 33.3 pg 04/11/2017 CBC 7072277 MCHC 33.1 g/dL 04/11/2017 CBC 7695863 PLATELET COUNT 116 10e9/L 04/11/2017 CBC 7474120 Mean Plt Volume 12.8 fL 04/11/2017 CBC 3575868 Neut Auto 64.0 % 04/11/2017 CBC 9558067 Lymph Auto 19.8 % 04/11/2017 CBC 2422809 [place] Auto 13.2 % 04/11/2017 CBC 5965520 RDW 14.9 % 04/11/2017 CBC 7234690 Eos Auto 2.7 % 04/11/2017 CBC 9500056 Baso Auto 0.3 % 04/11/2017 CBC 2896784 Neutrophil Abs 4.48 10e9/L 04/11/2017 CBC 9362023 Lymphocyte Abs 1.39 10e9/L 04/11/2017 CBC 2431788 Monocyte Abs 0.92 10e9/L 04/11/2017 CBC 2670619 Eosinophil Abs 0.19 10e9/L 04/11/2017 CBC 4497894 RDW-SD 53.5 fL 04/11/2017 CBC 2364648 Basophil Abs 0.02 10e9/L 04/11/2017 GFR CALC 7806172 GFR Non Afr Amr 38 mL/min 04/11/2017 GFR CALC 7106911 GFR Afr Amr 46 mL/min 04/11/2017 TSH 7055239 TSH 2.445 uIU/mL 04/11/2017 PSA EQ 20110923 PSA Total 0.54 ng/mL 04/11/2017 CHEM 14 9247926 AST 26 U/L 04/11/2017 CHEM 14 1221051 ALT 22 U/L 04/11/2017 CHEM 14 5841637 BUN 36 mg/dL 04/11/2017 CHEM 14 6698517 ALBUMIN 4.5 g/dL 04/11/2017 CHEM 14 5562180 CHLORIDE 101 mmol/L 04/11/2017 CHEM 14 6458067 Bili Total 1.1 mg/dL 04/11/2017 CHEM 14 9753424 ALK PHOS 82 U/L 04/11/2017 CHEM 14 9219208 SODIUM 139 mmol/L 04/11/2017 CHEM 14 8000703 CREATININE 1.76 mg/dL 04/11/2017 CHEM 14 9520928 CALCIUM 10.2 mg/dL 04/11/2017 CHEM 14 3580404 POTASSIUM 4.6 mmol/L 04/11/2017 CHEM 14 5160289 TOTAL PROTEIN 7.3 g/dL 04/11/2017 CHEM 14 8504341 GLUCOSE 92 mg/dL 04/11/2017 CHEM 14 4340487 Bicarbonate 32 mmol/L 04/11/2017 CHEM 14 3844673 AGAP 6 mmol/L 04/11/2017 Review of Systems System Result Effective Dates Constitutional recent illness 09/18/2018 Constitutional No chills 09/18/2018 Constitutional fatigue 09/18/2018 Constitutional No fever 09/18/2018 Constitutional No insomnia 09/18/2018 Constitutional No malaise 09/18/2018 Eyes No vision change 09/18/2018 Ears/Nose/Throat/Neck No dental pain Ears/Nose/Throat/Neck No dizziness 2018 Ears/Nose/Throat/Neck No dysphagia 2018 Ears/Nose/Throat/Neck No headache 2018 Ears/Nose/Throat/Neck No hearing loss Ears/Nose/Throat/Neck No nasal allergies 09/18/2018 Ears/Nose/Throat/Neck No sore throat Ears/Nose/Throat/Neck No postnasal drip 09/18/2018 Ears/Nose/Throat/Neck No sinus congestion 09/18/2018 Cardiovascular No chest pain/pressure Cardiovascular dyspnea 09/18/2018 Cardiovascular No edema 09/18/2018 Cardiovascular exercise intolerance 09/18 Cardiovascular No fatigue 09/18/2018 Cardiovascular hypertension 09/18/2018 Cardiovascular No near-syncope/dizziness 09/18/2018 Respiratory No chest tightness 2018 Respiratory No cough 09/18/2018 Respiratory dyspnea 09/18/2018 Respiratory No pedal edema 09/18/2018 Gastrointestinal No hemorrhoids 2018 Gastrointestinal No abdominal pain 2018 Gastrointestinal No constipation 2018 Gastrointestinal No diarrhea 09/18/2018 Gastrointestinal No gastroesophageal reflux 09/18/2018 Gastrointestinal No melena 09/18/2018 Gastrointestinal No nausea 09/18/2018 Gastrointestinal No vomiting 09/18/2018 Musculoskeletal stiffness 09/18/2018 Musculoskeletal No swelling 09/18/2018 Musculoskeletal back pain 09/18/2018 Musculoskeletal muscle weakness 2018 Musculoskeletal myalgias 09/18/2018 Dermatologic cyst 09/18/2018 Neurologic paresthesia 09/18/2018 Neurologic weakness 09/18/2018 Psychiatric No anxiety 09/18/2018 Psychiatric No depression 09/18/2018 Constitutional recent illness 09/04/2018 Constitutional No chills 09/04/2018 Constitutional fatigue 09/04/2018 Constitutional No fever 09/04/2018 Constitutional No insomnia 09/04/2018 Constitutional No malaise 09/04/2018 Eyes No vision change 09/04/2018 Ears/Nose/Throat/Neck No dental pain 12/2018 Ears/Nose/Throat/Neck No dizziness 2018 Ears/Nose/Throat/Neck No dysphagia 2018 Ears/Nose/Throat/Neck No headache 2018 Ears/Nose/Throat/Neck No hearing loss 12/2018 Ears/Nose/Throat/Neck No nasal allergies 09/04/2018 Ears/Nose/Throat/Neck No sore throat 12/2018 Ears/Nose/Throat/Neck No postnasal drip 09/04/2018 Ears/Nose/Throat/Neck No sinus congestion 09/04/2018 Cardiovascular No chest pain/pressure 12/2018 Cardiovascular dyspnea 09/04/2018 Cardiovascular No edema 09/04/2018 Cardiovascular exercise intolerance 09/04 Cardiovascular No fatigue 09/04/2018 Cardiovascular hypertension 09/04/2018 Cardiovascular No near-syncope/dizziness 09/04/2018 Respiratory No chest tightness 2018 Respiratory No cough 09/04/2018 Respiratory dyspnea 09/04/2018 Respiratory No pedal edema 09/04/2018 Musculoskeletal stiffness 09/04/2018 Musculoskeletal No swelling 09/04/2018 Musculoskeletal back pain 09/04/2018 Musculoskeletal muscle weakness 2018 Musculoskeletal myalgias 09/04/2018 Neurologic No dizziness 09/04/2018 Neurologic No headache 09/04/2018 Neurologic paresthesia 09/04/2018 Neurologic weakness 09/04/2018 Psychiatric No anxiety 09/04/2018 Psychiatric No depression 09/04/2018 Gastrointestinal No hemorrhoids 2018 Gastrointestinal No abdominal pain 2018 Gastrointestinal No constipation 2018 Gastrointestinal No diarrhea 09/04/2018 Gastrointestinal No gastroesophageal reflux 09/04/2018 Gastrointestinal No melena 09/04/2018 Gastrointestinal No nausea 09/04/2018 Gastrointestinal No vomiting 09/04/2018 Genitourinary/Nephrology No urinary urgency 09/04/2018 Dermatologic cyst 09/04/2018 Constitutional recent illness 07/25/2018 Constitutional No chills 07/25/2018 Constitutional fatigue 07/25/2018 Constitutional No fever 07/25/2018 Constitutional No insomnia 07/25/2018 Constitutional No malaise 07/25/2018 Eyes No vision change 07/25/2018 Ears/Nose/Throat/Neck No dental pain Ears/Nose/Throat/Neck No dizziness 2017 Ears/Nose/Throat/Neck No dysphagia 2017 Ears/Nose/Throat/Neck No headache 2017 Ears/Nose/Throat/Neck No hearing loss Ears/Nose/Throat/Neck No nasal allergies 07/25/2018 Ears/Nose/Throat/Neck No sore throat Ears/Nose/Throat/Neck No postnasal drip 07/25/2018 Ears/Nose/Throat/Neck No sinus congestion 07/25/2018 Cardiovascular No chest pain/pressure Cardiovascular No dyspnea 07/25/2018 Cardiovascular No edema 07/25/2018 Cardiovascular No exercise intolerance Cardiovascular No fatigue 07/25/2018 Cardiovascular hypertension 07/25/2018 Cardiovascular No near-syncope/dizziness 07/25/2018 Respiratory No chest tightness 2017 Respiratory No cough 07/25/2018 Respiratory No dyspnea 07/25/2018 Respiratory No pedal edema 07/25/2018 Musculoskeletal stiffness 07/25/2018 Musculoskeletal No swelling 07/25/2018 Musculoskeletal muscle weakness 2017 Musculoskeletal myalgias 07/25/2018 Neurologic No dizziness 07/25/2018 Neurologic No headache 07/25/2018 Psychiatric No anxiety 07/25/2018 Psychiatric No depression 07/25/2018 Musculoskeletal back pain 07/25/2018 Neurologic paresthesia 07/25/2018 Neurologic weakness 07/25/2018 Constitutional No recent illness 2017 Constitutional No chills 05/30/2018 Constitutional No diaphoresis 05/30/2018 Constitutional No fever 05/30/2018 Eyes No eye erythema 05/30/2018 Ears/Nose/Throat/Neck No nasal discharge 05/30/2018 Cardiovascular No chest pain/pressure 07/2017 Cardiovascular No dyspnea 05/30/2018 Respiratory No cough 05/30/2018 Respiratory No dyspnea 05/30/2018 Neurologic No alteration of consciousness 05/30/2018 Neurologic No mental status change 2017 Constitutional No recent illness 2017 Constitutional No chills 05/08/2018 Constitutional No fatigue 05/08/2018 Constitutional No fever 05/08/2018 Constitutional No insomnia 05/08/2018 Constitutional No malaise 05/08/2018 Ears/Nose/Throat/Neck No dental pain 04/2018 Ears/Nose/Throat/Neck No dizziness 2017 Ears/Nose/Throat/Neck No dysphagia 2017 Ears/Nose/Throat/Neck No headache 2017 Ears/Nose/Throat/Neck No hearing loss 04/2018 Ears/Nose/Throat/Neck No nasal allergies 05/08/2018 Ears/Nose/Throat/Neck No sore throat 04/2018 Ears/Nose/Throat/Neck No postnasal drip 05/08/2018 Ears/Nose/Throat/Neck No sinus congestion 05/08/2018 Cardiovascular No chest pain/pressure 04/2018 Cardiovascular No dyspnea 05/08/2018 Cardiovascular No edema 05/08/2018 Cardiovascular No exercise intolerance Cardiovascular No fatigue 05/08/2018 Cardiovascular hypertension 05/08/2018 Cardiovascular No near-syncope/dizziness 05/08/2018 Respiratory No chest tightness 2017 Respiratory No cough 05/08/2018 Respiratory No dyspnea 05/08/2018 Respiratory No pedal edema 05/08/2018 Gastrointestinal No abdominal pain 2017 Gastrointestinal No constipation 2017 Gastrointestinal No diarrhea 05/08/2018 Gastrointestinal No gastroesophageal reflux 05/08/2018 Gastrointestinal No nausea 05/08/2018 Gastrointestinal No vomiting 05/08/2018 Musculoskeletal stiffness 05/08/2018 Musculoskeletal No swelling 05/08/2018 Musculoskeletal muscle weakness 2017 Dermatologic No sores 05/08/2018 Psychiatric No anxiety 05/08/2018 Psychiatric No depression 05/08/2018 Dermatologic rash 05/08/2018 Constitutional No recent illness 2017 Constitutional No chills 03/06/2018 Constitutional No fatigue 03/06/2018 Constitutional No fever 03/06/2018 Constitutional No insomnia 03/06/2018 Constitutional No malaise 03/06/2018 Eyes No vision change 03/06/2018 Ears/Nose/Throat/Neck No dental pain 02/2018 Ears/Nose/Throat/Neck No dizziness 2017 Ears/Nose/Throat/Neck No dysphagia 2017 Ears/Nose/Throat/Neck No headache 2017 Ears/Nose/Throat/Neck No hearing loss 02/2018 Ears/Nose/Throat/Neck No nasal allergies 03/06/2018 Ears/Nose/Throat/Neck No sore throat 02/2018 Ears/Nose/Throat/Neck No postnasal drip 03/06/2018 Ears/Nose/Throat/Neck No sinus congestion 03/06/2018 Cardiovascular No chest pain/pressure 02/2018 Cardiovascular No dyspnea 03/06/2018 Cardiovascular No edema 03/06/2018 Cardiovascular No exercise intolerance Cardiovascular No fatigue 03/06/2018 Cardiovascular hypertension 03/06/2018 Cardiovascular No near-syncope/dizziness 03/06/2018 Respiratory No chest tightness 2017 Respiratory No cough 03/06/2018 Respiratory No dyspnea 03/06/2018 Respiratory No pedal edema 03/06/2018 Gastrointestinal No abdominal pain 2017 Gastrointestinal No constipation 2017 Gastrointestinal No diarrhea 03/06/2018 Gastrointestinal No gastroesophageal reflux 03/06/2018 Gastrointestinal No nausea 03/06/2018 Gastrointestinal No vomiting 03/06/2018 Genitourinary/Nephrology No dysuria 03/06 Genitourinary/Nephrology No nocturia 02/2018 Genitourinary/Nephrology No urinary incontinence 03/06/2018 Musculoskeletal stiffness 03/06/2018 Musculoskeletal No swelling 03/06/2018 Musculoskeletal muscle weakness 2017 Musculoskeletal No myalgias 03/06/2018 Dermatologic No rash 03/06/2018 Dermatologic No sores 03/06/2018 Neurologic No dizziness 03/06/2018 Neurologic No headache 03/06/2018 Neurologic No neck pain 03/06/2018 Neurologic No syncope 03/06/2018 Psychiatric No anxiety 03/06/2018 Psychiatric No depression 03/06/2018 Constitutional No recent illness 2017 Constitutional No chills 11/07/2017 Constitutional No fatigue 11/07/2017 Constitutional No fever 11/07/2017 Constitutional No insomnia 11/07/2017 Constitutional No malaise 11/07/2017 Eyes No vision change 11/07/2017 Ears/Nose/Throat/Neck No dental pain 05/2018 Ears/Nose/Throat/Neck No dizziness 2017 Ears/Nose/Throat/Neck No dysphagia 2017 Ears/Nose/Throat/Neck No headache 2017 Ears/Nose/Throat/Neck No hearing loss 05/2018 Ears/Nose/Throat/Neck No nasal allergies 11/07/2017 Ears/Nose/Throat/Neck No sore throat 05/2018 Ears/Nose/Throat/Neck No postnasal drip 11/07/2017 Ears/Nose/Throat/Neck No sinus congestion 11/07/2017 Cardiovascular No chest pain/pressure 05/2018 Cardiovascular No dyspnea 11/07/2017 Cardiovascular No edema 11/07/2017 Cardiovascular No exercise intolerance Cardiovascular No fatigue 11/07/2017 Cardiovascular hypertension 11/07/2017 Cardiovascular No near-syncope/dizziness 11/07/2017 Respiratory No chest tightness 2017 Respiratory No cough 11/07/2017 Respiratory No dyspnea 11/07/2017 Respiratory No pedal edema 11/07/2017 Gastrointestinal No abdominal pain 2017 Gastrointestinal No constipation 2017 Gastrointestinal No diarrhea 11/07/2017 Gastrointestinal No gastroesophageal reflux 11/07/2017 Gastrointestinal No nausea 11/07/2017 Gastrointestinal No vomiting 11/07/2017 Genitourinary/Nephrology No dysuria 11/07 Genitourinary/Nephrology No nocturia 05/2018 Genitourinary/Nephrology No urinary incontinence 11/07/2017 Musculoskeletal stiffness 11/07/2017 Musculoskeletal No swelling 11/07/2017 Musculoskeletal muscle weakness 2017 Musculoskeletal No myalgias 11/07/2017 Dermatologic No rash 11/07/2017 Dermatologic No sores 11/07/2017 Neurologic No dizziness 11/07/2017 Neurologic No headache 11/07/2017 Neurologic No neck pain 11/07/2017 Neurologic No syncope 11/07/2017 Psychiatric No anxiety 11/07/2017 Psychiatric No depression 11/07/2017 Constitutional No recent illness 2017 Constitutional No chills 09/12/2017 Constitutional No fatigue 09/12/2017 Constitutional No fever 09/12/2017 Constitutional No insomnia 09/12/2017 Constitutional No malaise 09/12/2017 Eyes No vision change 09/12/2017 Ears/Nose/Throat/Neck No dental pain Ears/Nose/Throat/Neck No dizziness 2017 Ears/Nose/Throat/Neck No dysphagia 2017 Ears/Nose/Throat/Neck No headache 2017 Ears/Nose/Throat/Neck No hearing loss Ears/Nose/Throat/Neck No nasal allergies 09/12/2017 Ears/Nose/Throat/Neck No sore throat Ears/Nose/Throat/Neck No postnasal drip 09/12/2017 Ears/Nose/Throat/Neck No sinus congestion 09/12/2017 Cardiovascular No chest pain/pressure Cardiovascular No dyspnea 09/12/2017 Cardiovascular No edema 09/12/2017 Cardiovascular No exercise intolerance Cardiovascular No fatigue 09/12/2017 Cardiovascular hypertension 09/12/2017 Cardiovascular No near-syncope/dizziness 09/12/2017 Respiratory No chest tightness 2017 Respiratory No cough 09/12/2017 Respiratory No dyspnea 09/12/2017 Respiratory No pedal edema 09/12/2017 Gastrointestinal No abdominal pain 2017 Gastrointestinal No constipation 2017 Gastrointestinal No diarrhea 09/12/2017 Gastrointestinal No gastroesophageal reflux 09/12/2017 Gastrointestinal No nausea 09/12/2017 Gastrointestinal No vomiting 09/12/2017 Genitourinary/Nephrology No dysuria 09/12 Genitourinary/Nephrology No nocturia Genitourinary/Nephrology No urinary incontinence 09/12/2017 Musculoskeletal No stiffness 09/12/2017 Musculoskeletal No swelling 09/12/2017 Musculoskeletal No muscle weakness 2017 Musculoskeletal No myalgias 09/12/2017 Dermatologic No rash 09/12/2017 Dermatologic No sores 09/12/2017 Neurologic No dizziness 09/12/2017 Neurologic No headache 09/12/2017 Neurologic No neck pain 09/12/2017 Neurologic No syncope 09/12/2017 Psychiatric No anxiety 09/12/2017 Psychiatric No depression 09/12/2017 Constitutional No recent illness 2016 Constitutional No chills 04/11/2017 Constitutional No fatigue 04/11/2017 Constitutional No fever 04/11/2017 Constitutional No insomnia 04/11/2017 Constitutional No malaise 04/11/2017 Eyes No vision change 04/11/2017 Ears/Nose/Throat/Neck No dental pain Ears/Nose/Throat/Neck No dizziness 2016 Ears/Nose/Throat/Neck No dysphagia 2016 Ears/Nose/Throat/Neck No headache 2016 Ears/Nose/Throat/Neck No hearing loss Ears/Nose/Throat/Neck No nasal allergies 04/11/2017 Ears/Nose/Throat/Neck No sore throat Ears/Nose/Throat/Neck No postnasal drip 04/11/2017 Ears/Nose/Throat/Neck No sinus congestion 04/11/2017 Cardiovascular No chest pain/pressure Cardiovascular No dyspnea 04/11/2017 Cardiovascular No edema 04/11/2017 Cardiovascular No exercise intolerance Cardiovascular No fatigue 04/11/2017 Cardiovascular No near-syncope/dizziness 04/11/2017 Respiratory No chest tightness 2016 Respiratory No cough 04/11/2017 Respiratory No dyspnea 04/11/2017 Respiratory No pedal edema 04/11/2017 Gastrointestinal No abdominal pain 2016 Gastrointestinal No constipation 2016 Gastrointestinal No diarrhea 04/11/2017 Gastrointestinal No gastroesophageal reflux 04/11/2017 Gastrointestinal No nausea 04/11/2017 Gastrointestinal No vomiting 04/11/2017 Genitourinary/Nephrology No dysuria 04/11 Genitourinary/Nephrology No nocturia Genitourinary/Nephrology No urinary incontinence 04/11/2017 Musculoskeletal No stiffness 04/11/2017 Musculoskeletal No swelling 04/11/2017 Musculoskeletal No muscle weakness 2016 Musculoskeletal No myalgias 04/11/2017 Dermatologic No rash 04/11/2017 Dermatologic No sores 04/11/2017 Neurologic No dizziness 04/11/2017 Neurologic No headache 04/11/2017 Neurologic No neck pain 04/11/2017 Neurologic No syncope 04/11/2017 Psychiatric No anxiety 04/11/2017 Psychiatric No depression 04/11/2017 Cardiovascular hypertension 04/11/2017 Physical Exam Exam Name System Name Item Name Status Result Effective Dates Notes Full Exam - General 1994 Constitutional general appearance Development: well developed 09/18/2018 None Full Exam - General 1994 Constitutional general appearance Development: appears stated age 0209/18/2018 None Full Exam - General 1994 Constitutional general appearance Hygiene/Attention to Grooming: good hygiene 09/18/2018 None Full Exam - General 1994 Eyes conjunctiva /eyelids Overall: conjunctiva clear 09/18/2018 None Full Exam - General 1994 Eyes conjunctiva /eyelids Overall: cornea clear 09/18/2018 None Full Exam - General 1994 Eyes conjunctiva /eyelids Overall: eyelids normal 09/18/2018 None Full Exam - General 1994 Eyes pupils and irises Overall: pupils equal, round, reactive to light and accomodation 09/18/2018 None Full Exam - General 1994 Ears/Nose/Throat otoscopic exam Overall: external auditory canals clear 09/18/2018 None Full Exam - General 1994 Ears/Nose/Throat otoscopic exam Overall: tympanic membranes clear 09/18/2018 None Full Exam - General 1994 Ears/Nose/Throat lips/teeth/gingiva Overall: benign lips 09/18/2018 None Full Exam - General 1994 Ears/Nose/Throat lips/teeth/gingiva Overall: normal dentition 09/18/2018 None Full Exam - General 1994 Ears/Nose/Throat oral cavity/pharynx/larynx Overall: oral mucosa clear 09/18/2018 None Full Exam - General 1994 Ears/Nose/Throat oral cavity/pharynx/larynx Overall: oropharyngeal mucosa clear 09/18/2018 None Full Exam - General 1995 Ears/Nose/Throat oral cavity/pharynx/larynx Overall: hypopharynx benign 09/18/2018 None Full Exam - General 1994 Ears/Nose/Throat oral cavity/pharynx/larynx Overall: no masses 09/18/2018 None Full Exam - General 1994 Respiratory auscultation Overall: breath sounds clear bilaterally 09/18/2018 None Full Exam - General 1994 Respiratory respiratory effort/rhythm Overall: no retractions 09/18/2018 None Full Exam - General 1994 Respiratory respiratory effort/rhythm Overall: normal rate 09/18/2018 None Full Exam - General 1994 Cardiovascular extremities Overall: no clubbing 09/18/2018 None Full Exam - General 1994 Cardiovascular auscultation of heart Overall: regular rate 09/18/2018 None Full Exam - General 1994 Cardiovascular auscultation of heart Overall: normal heart sounds 09/18/2018 None Full Exam - General 1994 Musculoskeletal spine, ribs and pelvis Overall: spine benign 09/18/2018 None Full Exam - General 1994 Musculoskeletal spine, ribs and pelvis Overall: sacroiliac joint benign 09/18/2018 None Full Exam - General 1994 Musculoskeletal spine, ribs and pelvis Overall: good posture 09/18/2018 None Full Exam - General 1994 Musculoskeletal head and neck Overall: head atraumatic 09/18/2018 None Full Exam - General 1994 Musculoskeletal head and neck Overall: cervical spine benign 09/18/2018 None Full Exam - General 1994 Integument inspection of skin Dermatitis: erythema 09/18/2018 on right posterior shoulder - cyst Full Exam - General 1994 Neurologic cranial nerves Overall: crainial nerves 2 - 12 grossly intact 09/18/2018 None Full Exam - General 1994 Psychiatric orientation/consciousness Overall: oriented to person, place and time 09/18/2018 None Full Exam - General 1994 Psychiatric mood and affect Overall: normal mood and affect 09/18/2018 None Full Exam - General 1994 Constitutional general appearance Development: well developed 09/04/2018 None Full Exam - General 1994 Constitutional general appearance Development: appears stated age 0209/04/2018 None Full Exam - General 1994 Constitutional general appearance Hygiene/Attention to Grooming: good hygiene 09/04/2018 None Full Exam - General 1994 Eyes conjunctiva /eyelids Overall: conjunctiva clear 09/04/2018 None Full Exam - General 1994 Eyes conjunctiva /eyelids Overall: cornea clear 09/04/2018 None Full Exam - General 1994 Eyes conjunctiva /eyelids Overall: eyelids normal 09/04/2018 None Full Exam - General 1994 Eyes pupils and irises Overall: pupils equal, round, reactive to light and accomodation 09/04/2018 None Full Exam - General 1994 Ears/Nose/Throat otoscopic exam Overall: external auditory canals clear 09/04/2018 None Full Exam - General 1995 Ears/Nose/Throat otoscopic exam Overall: tympanic membranes clear 09/04/2018 None Full Exam - General 1994 Ears/Nose/Throat lips/teeth/gingiva Overall: benign lips 09/04/2018 None Full Exam - General 1995 Ears/Nose/Throat lips/teeth/gingiva Overall: normal dentition 09/04/2018 None Full Exam - General 1995 Ears/Nose/Throat oral cavity/pharynx/larynx Overall: oral mucosa clear 09/04/2018 None Full Exam - General 1994 Ears/Nose/Throat oral cavity/pharynx/larynx Overall: oropharyngeal mucosa clear 09/04/2018 None Full Exam - General 1994 Ears/Nose/Throat oral cavity/pharynx/larynx Overall: hypopharynx benign 09/04/2018 None Full Exam - General 1994 Ears/Nose/Throat oral cavity/pharynx/larynx Overall: no masses 09/04/2018 None Full Exam - General 1994 Respiratory auscultation Overall: breath sounds clear bilaterally 09/04/2018 None Full Exam - General 1994 Respiratory respiratory effort/rhythm Overall: no retractions 09/04/2018 None Full Exam - General 1994 Respiratory respiratory effort/rhythm Overall: normal rate 09/04/2018 None Full Exam - General 1994 Cardiovascular extremities Overall: no clubbing 09/04/2018 None Full Exam - General 1994 Cardiovascular auscultation of heart Overall: regular rate 09/04/2018 None Full Exam - General 1994 Cardiovascular auscultation of heart Overall: normal heart sounds 09/04/2018 None Full Exam - General 1994 Musculoskeletal spine, ribs and pelvis Overall: spine benign 09/04/2018 None Full Exam - General 1994 Musculoskeletal spine, ribs and pelvis Overall: sacroiliac joint benign 09/04/2018 None Full Exam - General 1994 Musculoskeletal spine, ribs and pelvis Overall: good posture 09/04/2018 None Full Exam - General 1994 Musculoskeletal gait and station Gait: abnormal swing through 09/04/2018 None Full Exam - General 1994 Musculoskeletal gait and station Gait: unable to turn quickly 09/04/2018 None Full Exam - General 1994 Musculoskeletal head and neck Overall: head atraumatic 09/04/2018 None Full Exam - General 1994 Musculoskeletal head and neck Overall: cervical spine benign 09/04/2018 None Full Exam - General 1994 Neurologic cranial nerves Overall: crainial nerves 2 - 12 grossly intact 09/04/2018 None Full Exam - General 1994 Psychiatric orientation/consciousness Overall: oriented to person, place and time 09/04/2018 None Full Exam - General 1994 Psychiatric mood and affect Overall: normal mood and affect 09/04/2018 None Full Exam - General 1994 Abdomen abdominal exam Overall: no tenderness 09/04/2018 None Full Exam - General 1994 Abdomen abdominal exam Overall: normal bowel sounds 09/04/2018 None Full Exam - General 1994 Integument inspection of skin Dermatitis: erythema 09/04/2018 on right posterior shoulder - cyst Full Exam - General 1994 Constitutional general appearance Development: well developed 07/25/2018 None Full Exam - General 1994 Constitutional general appearance Development: appears stated age 1207/25/2018 None Full Exam - General 1994 Constitutional general appearance Hygiene/Attention to Grooming: good hygiene 07/25/2018 None Full Exam - General 1994 Eyes conjunctiva /eyelids Overall: conjunctiva clear 07/25/2018 None Full Exam - General 1994 Eyes conjunctiva /eyelids Overall: cornea clear 07/25/2018 None Full Exam - General 1994 Eyes conjunctiva /eyelids Overall: eyelids normal 07/25/2018 None Full Exam - General 1994 Eyes pupils and irises Overall: pupils equal, round, reactive to light and accomodation 07/25/2018 None Full Exam - General 1994 Ears/Nose/Throat otoscopic exam Overall: external auditory canals clear 07/25/2018 None Full Exam - General 1994 Ears/Nose/Throat otoscopic exam Overall: tympanic membranes clear 07/25/2018 None Full Exam - General 1994 Ears/Nose/Throat lips/teeth/gingiva Overall: benign lips 07/25/2018 None Full Exam - General 1994 Ears/Nose/Throat lips/teeth/gingiva Overall: normal dentition 07/25/2018 None Full Exam - General 1994 Ears/Nose/Throat oral cavity/pharynx/larynx Overall: oral mucosa clear 07/25/2018 None Full Exam - General 1994 Ears/Nose/Throat oral cavity/pharynx/larynx Overall: oropharyngeal mucosa clear 07/25/2018 None Full Exam - General 1994 Ears/Nose/Throat oral cavity/pharynx/larynx Overall: hypopharynx benign 07/25/2018 None Full Exam - General 1994 Ears/Nose/Throat oral cavity/pharynx/larynx Overall: no masses 07/25/2018 None Full Exam - General 1994 Respiratory auscultation Overall: breath sounds clear bilaterally 07/25/2018 None Full Exam - General 1994 Respiratory respiratory effort/rhythm Overall: no retractions 07/25/2018 None Full Exam - General 1994 Respiratory respiratory effort/rhythm Overall: normal rate 07/25/2018 None Full Exam - General 1994 Cardiovascular extremities Overall: no clubbing 07/25/2018 None Full Exam - General 1994 Cardiovascular auscultation of heart Overall: regular rate 07/25/2018 None Full Exam - General 1994 Cardiovascular auscultation of heart Overall: normal heart sounds 07/25/2018 None Full Exam - General 1994 Musculoskeletal spine, ribs and pelvis Overall: spine benign 07/25/2018 None Full Exam - General 1994 Musculoskeletal spine, ribs and pelvis Overall: sacroiliac joint benign 07/25/2018 None Full Exam - General 1994 Musculoskeletal spine, ribs and pelvis Overall: good posture 07/25/2018 None Full Exam - General 1994 Musculoskeletal head and neck Overall: head atraumatic 07/25/2018 None Full Exam - General 1994 Musculoskeletal head and neck Overall: cervical spine benign 07/25/2018 None Full Exam - General 1994 Neurologic cranial nerves Overall: crainial nerves 2 - 12 grossly intact 07/25/2018 None Full Exam - General 1994 Psychiatric orientation/consciousness Overall: oriented to person, place and time 07/25/2018 None Full Exam - General 1994 Psychiatric mood and affect Overall: normal mood and affect 07/25/2018 None Full Exam - General 1994 Musculoskeletal gait and station Gait: unable to turn quickly 07/25/2018 None Full Exam - General 1994 Musculoskeletal gait and station Gait: abnormal swing through 07/25/2018 None Full Exam - General 1994 Constitutional general appearance Overall: well developed 05/30/2018 None Full Exam - General 1994 Constitutional general appearance Overall: in no acute distress 05/30/2018 None Full Exam - General 1994 Constitutional general appearance Overall: well nourished 05/30/2018 None Full Exam - General 1994 Eyes conjunctiva /eyelids Overall: conjunctiva clear 05/30/2018 None Full Exam - General 1994 Eyes conjunctiva /eyelids Overall: eyelids normal 05/30/2018 None Full Exam - General 1994 Ears/Nose/Throat lips/teeth/gingiva Overall: benign lips 05/30/2018 None Full Exam - General 1994 Respiratory respiratory effort/rhythm Overall: no retractions 05/30/2018 None Full Exam - General 1994 Respiratory respiratory effort/rhythm Overall: normal rate 05/30/2018 None Full Exam - General 1994 Musculoskeletal head and neck Overall: head atraumatic 05/30/2018 None Full Exam - General 1994 Neurologic cranial nerves Overall: crainial nerves 2 - 12 grossly intact 05/30/2018 None Full Exam - General 1994 Psychiatric orientation/consciousness Overall: oriented to person, place and time 05/30/2018 None Full Exam - General 1994 Psychiatric mood and affect Overall: normal mood and affect 05/30/2018 None Full Exam - General 1994 Psychiatric appearance Overall: well-groomed, good eye contact 05/30/2018 None Full Exam - General 1994 Constitutional general appearance Development: well developed 05/08/2018 None Full Exam - General 1994 Constitutional general appearance Development: appears stated age 1005/08/2018 None Full Exam - General 1994 Constitutional general appearance Hygiene/Attention to Grooming: good hygiene 05/08/2018 None Full Exam - General 1994 Eyes conjunctiva /eyelids Overall: conjunctiva clear 05/08/2018 None Full Exam - General 1994 Eyes conjunctiva /eyelids Overall: cornea clear 05/08/2018 None Full Exam - General 1994 Eyes conjunctiva /eyelids Overall: eyelids normal 05/08/2018 None Full Exam - General 1994 Eyes pupils and irises Overall: pupils equal, round, reactive to light and accomodation 05/08/2018 None Full Exam - General 1994 Respiratory auscultation Overall: breath sounds clear bilaterally 05/08/2018 None Full Exam - General 1994 Respiratory respiratory effort/rhythm Overall: no retractions 05/08/2018 None Full Exam - General 1994 Respiratory respiratory effort/rhythm Overall: normal rate 05/08/2018 None Full Exam - General 1994 Cardiovascular extremities Overall: no clubbing 05/08/2018 None Full Exam - General 1994 Cardiovascular auscultation of heart Overall: regular rate 05/08/2018 None Full Exam - General 1994 Cardiovascular auscultation of heart Overall: normal heart sounds 05/08/2018 None Full Exam - General 1994 Integument inspection of skin Location: left leg 05/08/2018 improved irritation of skin on left medial lower leg Full Exam - General 1994 Neurologic deep tendon reflexes Overall: deep tendon reflexes intact 05/08/2018 None Full Exam - General 1994 Neurologic cranial nerves Overall: crainial nerves 2 - 12 grossly intact 05/08/2018 None Full Exam - General 1994 Psychiatric orientation/consciousness Overall: oriented to person, place and time 05/08/2018 None Full Exam - General 1994 Psychiatric mood and affect Overall: normal mood and affect 05/08/2018 None Full Exam - General 1994 Constitutional general appearance Overall: well nourished 04/10/2018 None Full Exam - General 1994 Constitutional general appearance Overall: well developed 04/10/2018 None Full Exam - General 1994 Constitutional general appearance Overall: in no acute distress 04/10/2018 None Full Exam - General 1994 Psychiatric orientation/consciousness Overall: oriented to person, place and time 04/10/2018 None Full Exam - General 1994 Psychiatric mood and affect Mood: happy 04/10/2018 None Full Exam - General 1994 Psychiatric mood and affect Overall: normal mood and affect 04/10/2018 None Full Exam - General 1994 Integument inspection of skin Dermatitis: thickened 04/10/2018 callus on stump of great toe with blood below base of callus - callus pared down Full Exam - General 1994 Respiratory auscultation Overall: breath sounds clear bilaterally 04/10/2018 None Full Exam - General 1994 Respiratory respiratory effort/rhythm Overall: normal rate 04/10/2018 None Full Exam - General 1994 Respiratory respiratory effort/rhythm Overall: no retractions 04/10/2018 None Full Exam - General 1994 Cardiovascular auscultation of heart Overall: regular rate 04/10/2018 None Full Exam - General 1994 Cardiovascular auscultation of heart Overall: normal heart sounds 04/10/2018 None Full Exam - General 1994 Cardiovascular auscultation of heart Overall: no murmurs 04/10/2018 None Full Exam - General 1994 Neurologic sensation Touch: (specify location of deficit): vibration not intact on great toe, medial ankle, left ankle, decreased on knee 04/10/2018 None Full Exam - General 1994 Constitutional general appearance Development: well developed 03/06/2018 None Full Exam - General 1994 Constitutional general appearance Development: appears stated age 0803/06/2018 None Full Exam - General 1994 Constitutional general appearance Hygiene/Attention to Grooming: good hygiene 03/06/2018 None Full Exam - General 1994 Eyes conjunctiva /eyelids Overall: conjunctiva clear 03/06/2018 None Full Exam - General 1994 Eyes conjunctiva /eyelids Overall: cornea clear 03/06/2018 None Full Exam - General 1994 Eyes conjunctiva /eyelids Overall: eyelids normal 03/06/2018 None Full Exam - General 1994 Eyes pupils and irises Overall: pupils equal, round, reactive to light and accomodation 03/06/2018 None Full Exam - General 1994 Ears/Nose/Throat otoscopic exam Overall: external auditory canals clear 03/06/2018 None Full Exam - General 1994 Ears/Nose/Throat otoscopic exam Overall: tympanic membranes clear 03/06/2018 None Full Exam - General 1995 Ears/Nose/Throat lips/teeth/gingiva Overall: benign lips 03/06/2018 None Full Exam - General 1994 Ears/Nose/Throat lips/teeth/gingiva Overall: normal dentition 03/06/2018 None Full Exam - General 1994 Ears/Nose/Throat oral cavity/pharynx/larynx Overall: oral mucosa clear 03/06/2018 None Full Exam - General 1994 Ears/Nose/Throat oral cavity/pharynx/larynx Overall: oropharyngeal mucosa clear 03/06/2018 None Full Exam - General 1994 Ears/Nose/Throat oral cavity/pharynx/larynx Overall: hypopharynx benign 03/06/2018 None Full Exam - General 1994 Ears/Nose/Throat oral cavity/pharynx/larynx Overall: no masses 03/06/2018 None Full Exam - General 1994 Respiratory auscultation Overall: breath sounds clear bilaterally 03/06/2018 None Full Exam - General 1994 Respiratory respiratory effort/rhythm Overall: no retractions 03/06/2018 None Full Exam - General 1994 Respiratory respiratory effort/rhythm Overall: normal rate 03/06/2018 None Full Exam - General 1994 Cardiovascular extremities Overall: no clubbing 03/06/2018 None Full Exam - General 1994 Cardiovascular auscultation of heart Overall: regular rate 03/06/2018 None Full Exam - General 1994 Cardiovascular auscultation of heart Overall: normal heart sounds 03/06/2018 None Full Exam - General 1994 Abdomen abdominal exam Overall: no tenderness 03/06/2018 None Full Exam - General 1994 Abdomen abdominal exam Overall: normal bowel sounds 03/06/2018 None Full Exam - General 1994 Lymphatic neck nodes Overall: posterior cervical chain benign 03/06/2018 None Full Exam - General 1994 Musculoskeletal spine, ribs and pelvis Overall: spine benign 03/06/2018 None Full Exam - General 1994 Musculoskeletal spine, ribs and pelvis Overall: sacroiliac joint benign 03/06/2018 None Full Exam - General 1994 Musculoskeletal spine, ribs and pelvis Overall: good posture 03/06/2018 None Full Exam - General 1994 Musculoskeletal head and neck Overall: head atraumatic 03/06/2018 None Full Exam - General 1994 Musculoskeletal head and neck Overall: cervical spine benign 03/06/2018 None Full Exam - General 1994 Neurologic deep tendon reflexes Overall: deep tendon reflexes intact 03/06/2018 None Full Exam - General 1994 Neurologic cranial nerves Overall: crainial nerves 2 - 12 grossly intact 03/06/2018 None Full Exam - General 1994 Psychiatric orientation/consciousness Overall: oriented to person, place and time 03/06/2018 None Full Exam - General 1994 Psychiatric mood and affect Overall: normal mood and affect 03/06/2018 None Full Exam - General 1994 Integument inspection of skin Location: left leg 03/06/2018 irritated skin over leg with dry skin, flaking Full Exam - General 1994 Lymphatic neck nodes Overall: anterior cervical chain benign 03/06/2018 None Full Exam - General 1994 Constitutional general appearance Development: well developed 11/07/2017 None Full Exam - General 1994 Constitutional general appearance Development: appears stated age 0411/07/2017 None Full Exam - General 1994 Constitutional general appearance Hygiene/Attention to Grooming: good hygiene 11/07/2017 None Full Exam - General 1994 Eyes conjunctiva /eyelids Overall: conjunctiva clear 11/07/2017 None Full Exam - General 1994 Eyes conjunctiva /eyelids Overall: cornea clear 11/07/2017 None Full Exam - General 1994 Eyes conjunctiva /eyelids Overall: eyelids normal 11/07/2017 None Full Exam - General 1994 Eyes pupils and irises Overall: pupils equal, round, reactive to light and accomodation 11/07/2017 None Full Exam - General 1994 Ears/Nose/Throat otoscopic exam Overall: external auditory canals clear 11/07/2017 None Full Exam - General 1994 Ears/Nose/Throat otoscopic exam Overall: tympanic membranes clear 11/07/2017 None Full Exam - General 1994 Ears/Nose/Throat lips/teeth/gingiva Overall: benign lips 11/07/2017 None Full Exam - General 1994 Ears/Nose/Throat lips/teeth/gingiva Overall: normal dentition 11/07/2017 None Full Exam - General 1994 Ears/Nose/Throat oral cavity/pharynx/larynx Overall: oral mucosa clear 11/07/2017 None Full Exam - General 1994 Ears/Nose/Throat oral cavity/pharynx/larynx Overall: oropharyngeal mucosa clear 11/07/2017 None Full Exam - General 1994 Ears/Nose/Throat oral cavity/pharynx/larynx Overall: hypopharynx benign 11/07/2017 None Full Exam - General 1994 Ears/Nose/Throat oral cavity/pharynx/larynx Overall: no masses 11/07/2017 None Full Exam - General 1994 Respiratory auscultation Overall: breath sounds clear bilaterally 11/07/2017 None Full Exam - General 1994 Respiratory respiratory effort/rhythm Overall: no retractions 11/07/2017 None Full Exam - General 1994 Respiratory respiratory effort/rhythm Overall: normal rate 11/07/2017 None Full Exam - General 1994 Cardiovascular extremities Overall: no clubbing 11/07/2017 None Full Exam - General 1994 Cardiovascular auscultation of heart Overall: regular rate 11/07/2017 None Full Exam - General 1994 Cardiovascular auscultation of heart Overall: normal heart sounds 11/07/2017 None Full Exam - General 1994 Abdomen abdominal exam Overall: no tenderness 11/07/2017 None Full Exam - General 1994 Abdomen abdominal exam Overall: normal bowel sounds 11/07/2017 None Full Exam - General 1994 Lymphatic neck nodes Overall: anterior cervical chain benign 11/07/2017 None Full Exam - General 1994 Lymphatic neck nodes Overall: posterior cervical chain benign 11/07/2017 None Full Exam - General 1994 Musculoskeletal spine, ribs and pelvis Overall: sacroiliac joint benign 11/07/2017 None Full Exam - General 1994 Musculoskeletal spine, ribs and pelvis Overall: good posture 11/07/2017 None Full Exam - General 1994 Musculoskeletal head and neck Overall: head atraumatic 11/07/2017 None Full Exam - General 1994 Musculoskeletal head and neck Overall: cervical spine benign 11/07/2017 None Full Exam - General 1994 Integument inspection of skin Location: left leg 11/07/2017 scar over anterior knee Full Exam - General 1994 Integument inspection of skin Location: right leg 11/07/2017 scar over anterior knee Full Exam - General 1994 Neurologic deep tendon reflexes Overall: deep tendon reflexes intact 11/07/2017 None Full Exam - General 1994 Neurologic deep tendon reflexes (graded 0-4+ with 2+ being normal): Left and right biceps: 2/4 11/07/2017 None Full Exam - General 1994 Neurologic deep tendon reflexes (graded 0-4+ with 2+ being normal): Left and right patella: 09/0211/07/2017 None Full Exam - General 1994 Neurologic deep tendon reflexes (graded 0-4+ with 2+ being normal): Left and right Achilles: 24 11/07/2017 None Full Exam - General 1994 Neurologic cranial nerves Overall: crainial nerves 2 - 12 grossly intact 11/07/2017 None Full Exam - General 1994 Psychiatric orientation/consciousness Overall: oriented to person, place and time 11/07/2017 None Full Exam - General 1994 Psychiatric mood and affect Overall: normal mood and affect 11/07/2017 None Full Exam - General 1994 Musculoskeletal spine, ribs and pelvis Overall: spine benign 11/07/2017 None Full Exam - General 1994 Constitutional general appearance Development: well developed 09/12/2017 None Full Exam - General 1994 Constitutional general appearance Development: appears stated age 0209/12/2017 None Full Exam - General 1994 Constitutional general appearance Hygiene/Attention to Grooming: good hygiene 09/12/2017 None Full Exam - General 1994 Eyes conjunctiva /eyelids Overall: conjunctiva clear 09/12/2017 None Full Exam - General 1994 Eyes conjunctiva /eyelids Overall: cornea clear 09/12/2017 None Full Exam - General 1994 Eyes conjunctiva /eyelids Overall: eyelids normal 09/12/2017 None Full Exam - General 1994 Eyes pupils and irises Overall: pupils equal, round, reactive to light and accomodation 09/12/2017 None Full Exam - General 1994 Ears/Nose/Throat otoscopic exam Overall: external auditory canals clear 09/12/2017 None Full Exam - General 1994 Ears/Nose/Throat otoscopic exam Overall: tympanic membranes clear 09/12/2017 None Full Exam - General 1994 Ears/Nose/Throat lips/teeth/gingiva Overall: benign lips 09/12/2017 None Full Exam - General 1994 Ears/Nose/Throat lips/teeth/gingiva Overall: normal dentition 09/12/2017 None Full Exam - General 1994 Ears/Nose/Throat oral cavity/pharynx/larynx Overall: oral mucosa clear 09/12/2017 None Full Exam - General 1994 Ears/Nose/Throat oral cavity/pharynx/larynx Overall: oropharyngeal mucosa clear 09/12/2017 None Full Exam - General 1994 Ears/Nose/Throat oral cavity/pharynx/larynx Overall: hypopharynx benign 09/12/2017 None Full Exam - General 1994 Ears/Nose/Throat oral cavity/pharynx/larynx Overall: no masses 09/12/2017 None Full Exam - General 1994 Respiratory auscultation Overall: breath sounds clear bilaterally 09/12/2017 None Full Exam - General 1994 Respiratory respiratory effort/rhythm Overall: no retractions 09/12/2017 None Full Exam - General 1994 Respiratory respiratory effort/rhythm Overall: normal rate 09/12/2017 None Full Exam - General 1994 Cardiovascular extremities Overall: no clubbing 09/12/2017 None Full Exam - General 1994 Cardiovascular auscultation of heart Overall: regular rate 09/12/2017 None Full Exam - General 1994 Cardiovascular auscultation of heart Overall: normal heart sounds 09/12/2017 None Full Exam - General 1994 Abdomen abdominal exam Overall: no tenderness 09/12/2017 None Full Exam - General 1994 Abdomen abdominal exam Overall: normal bowel sounds 09/12/2017 None Full Exam - General 1994 Lymphatic neck nodes Overall: anterior cervical chain benign 09/12/2017 None Full Exam - General 1994 Lymphatic neck nodes Overall: posterior cervical chain benign 09/12/2017 None Full Exam - General 1994 Musculoskeletal spine, ribs and pelvis Overall: spine benign 09/12/2017 None Full Exam - General 1994 Musculoskeletal spine, ribs and pelvis Overall: sacroiliac joint benign 09/12/2017 None Full Exam - General 1994 Musculoskeletal spine, ribs and pelvis Overall: good posture 09/12/2017 None Full Exam - General 1994 Musculoskeletal head and neck Overall: head atraumatic 09/12/2017 None Full Exam - General 1994 Musculoskeletal head and neck Overall: cervical spine benign 09/12/2017 None Full Exam - General 1994 Integument inspection of skin Location: left leg 09/12/2017 scar over anterior knee Full Exam - General 1994 Integument inspection of skin Location: right leg 09/12/2017 scar over anterior knee Full Exam - General 1994 Neurologic deep tendon reflexes Overall: deep tendon reflexes intact 09/12/2017 None Full Exam - General 1994 Neurologic cranial nerves Overall: crainial nerves 2 - 12 grossly intact 09/12/2017 None Full Exam - General 1994 Psychiatric orientation/consciousness Overall: oriented to person, place and time 09/12/2017 None Full Exam - General 1994 Psychiatric mood and affect Overall: normal mood and affect 09/12/2017 None Full Exam - General 1994 Neurologic deep tendon reflexes (graded 0-4+ with 2+ being normal): Left and right biceps: 09/0209/12/2017 None Full Exam - General 1994 Neurologic deep tendon reflexes (graded 0-4+ with 2+ being normal): Left and right patella: 09/0209/12/2017 None Full Exam - General 1994 Neurologic deep tendon reflexes (graded 0-4+ with 2+ being normal): Left and right Achilles: 09/0209/12/2017 None Full Exam - General 1994 Constitutional general appearance Development: well developed 04/11/2017 None Full Exam - General 1994 Constitutional general appearance Development: appears stated age 0904/11/2017 None Full Exam - General 1994 Constitutional general appearance Hygiene/Attention to Grooming: good hygiene 04/11/2017 None Full Exam - General 1994 Eyes conjunctiva /eyelids Overall: conjunctiva clear 04/11/2017 None Full Exam - General 1994 Eyes conjunctiva /eyelids Overall: cornea clear 04/11/2017 None Full Exam - General 1994 Eyes conjunctiva /eyelids Overall: eyelids normal 04/11/2017 None Full Exam - General 1994 Eyes pupils and irises Overall: pupils equal, round, reactive to light and accomodation 04/11/2017 None Full Exam - General 1994 Ears/Nose/Throat otoscopic exam Overall: external auditory canals clear 04/11/2017 None Full Exam - General 1994 Ears/Nose/Throat otoscopic exam Overall: tympanic membranes clear 04/11/2017 None Full Exam - General 1994 Ears/Nose/Throat lips/teeth/gingiva Overall: benign lips 04/11/2017 None Full Exam - General 1994 Ears/Nose/Throat lips/teeth/gingiva Overall: normal dentition 04/11/2017 None Full Exam - General 1994 Ears/Nose/Throat oral cavity/pharynx/larynx Overall: oral mucosa clear 04/11/2017 None Full Exam - General 1994 Ears/Nose/Throat oral cavity/pharynx/larynx Overall: oropharyngeal mucosa clear 04/11/2017 None Full Exam - General 1994 Ears/Nose/Throat oral cavity/pharynx/larynx Overall: hypopharynx benign 04/11/2017 None Full Exam - General 1994 Ears/Nose/Throat oral cavity/pharynx/larynx Overall: no masses 04/11/2017 None Full Exam - General 1994 Respiratory auscultation Overall: breath sounds clear bilaterally 04/11/2017 None Full Exam - General 1994 Respiratory respiratory effort/rhythm Overall: no retractions 04/11/2017 None Full Exam - General 1994 Respiratory respiratory effort/rhythm Overall: normal rate 04/11/2017 None Full Exam - General 1994 Cardiovascular extremities Overall: no clubbing 04/11/2017 None Full Exam - General 1994 Cardiovascular auscultation of heart Overall: regular rate 04/11/2017 None Full Exam - General 1994 Cardiovascular auscultation of heart Overall: normal heart sounds 04/11/2017 None Full Exam - General 1994 Abdomen abdominal exam Overall: no tenderness 04/11/2017 None Full Exam - General 1994 Abdomen abdominal exam Overall: normal bowel sounds 04/11/2017 None Full Exam - General 1994 Lymphatic neck nodes Overall: anterior cervical chain benign 04/11/2017 None Full Exam - General 1994 Lymphatic neck nodes Overall: posterior cervical chain benign 04/11/2017 None Full Exam - General 1994 Musculoskeletal spine, ribs and pelvis Overall: spine benign 04/11/2017 None Full Exam - General 1994 Musculoskeletal spine, ribs and pelvis Overall: sacroiliac joint benign 04/11/2017 None Full Exam - General 1994 Musculoskeletal spine, ribs and pelvis Overall: good posture 04/11/2017 None Full Exam - General 1994 Musculoskeletal head and neck Overall: head atraumatic 04/11/2017 None Full Exam - General 1994 Musculoskeletal head and neck Overall: cervical spine benign 04/11/2017 None Full Exam - General 1994 Neurologic deep tendon reflexes Overall: deep tendon reflexes intact 04/11/2017 None Full Exam - General 1994 Neurologic cranial nerves Overall: crainial nerves 2 - 12 grossly intact 04/11/2017 None Full Exam - General 1994 Psychiatric orientation/consciousness Overall: oriented to person, place and time 04/11/2017 None Full Exam - General 1994 Psychiatric mood and affect Overall: normal mood and affect 04/11/2017 None Full Exam - General 1994 Integument inspection of skin Location: right leg 04/11/2017 scar over anterior knee Full Exam - General 1994 Integument inspection of skin Location: left leg 04/11/2017 scar over anterior knee Procedures Procedure Codes Date PPPS, SUBSEQ VISIT CPT -4: G0439 05/30/2018 Vital Signs Date Vital 09/18/2018 Blood Pressure 1: 92/70 Code : 8480-6 BMI: 36.4 Code : 55881-2 Heart Rate 1 : 64 bpm Height: 6'3" SpO2: 95% Weight: 291 lbs 09/04/2018 Blood Pressure 1: 92/64 Code : 8480-6 BMI: 35.6 Code : 45303-9 Heart Rate 1 : 71 bpm Height: 6'3" SpO2: 95% Weight: 285 lbs 07/25/2018 Blood Pressure 1: 118/70 Code : 8480-6 Heart Rate 1: 72 bpm Height: SpO2: 94% Weight: 05/30/2018 Blood Pressure 1: 120/62 Code : 8480-6 BMI: 33.6 Code : 81909-2 Heart Rate 1 : 85 bpm Height: 6'3" SpO2: 96% Weight: 269 lbs 05/08/2018 Blood Pressure 1: 108/68 Code : 8480-6 BMI: 33.9 Code : 71715-3 Heart Rate 1 : 87 bpm Height: 6'3" SpO2: 98% Weight: 271 lbs 04/10/2018 Blood Pressure 1: 100/64 Code : 8480-6 BMI: 33.5 Code : 11019-6 Heart Rate 1 : 86 bpm Height: 6'3" SpO2: 95% Weight: 268 lbs 03/06/2018 Blood Pressure 1: 106/70 Code : 8480-6 BMI: 34.5 Code : 37994-2 Heart Rate 1 : 87 bpm Height: 6'3" SpO2: 97% Weight: 276 lbs 11/07/2017 Blood Pressure 1: 92/56 Code : 8480-6 BMI: 33.2 Code : 71429-2 Heart Rate 1 : 46 bpm Height: 6'3" SpO2: 98% Weight: 266 lbs 09/12/2017 Blood Pressure 1: 110/60 Code : 8480-6 BMI: 32.6 Code : 54270-6 Heart Rate 1 : 89 bpm Height: 6'3" SpO2: 97% Weight: 261 lbs 04/11/2017 Blood Pressure 1: 118/64 Code : 8480-6 BMI: 33.5 Code : 58956-7 Heart Rate 1 : 82 bpm Height: 6'3" SpO2: 96% Weight: 268 lbs Functional Status No Functional Status data History of Present Illness Symptom Name Status Result Effective Date Notes Quality chronic 09/18 None Quality primary hypertension 09/18/2018 None Onset and Resolution ongoing 09/18/2018 None Onset of Symptom during adulthood 09/18/2018 None Blood Pressure Values patient checking blood pressure at home - did not bring in readings 2018 None Alleviating Factors medication 09/18/2018 None Pertinent Findings decreased energy 09/18/2018 None Pertinent Findings Denies dizziness 09/18/2018 None Pertinent Findings dyspnea 09/18/2018 "always" Pertinent Findings edema 09/18/2018 bilateral- worse in right leg Onset and Resolution ongoing 09/18/2018 None Limitation on Activities Denies moderately limits activities 09/18/2018 None Limitation on Activities Denies is incapacitating 09/18/2018 None Pertinent Findings weakness 09/18/2018 None Quality worsening None Quality chronic 09/04 None Quality primary hypertension 09/04/2018 None Onset and Resolution ongoing 09/04/2018 None Onset of Symptom during adulthood 09/04/2018 None Blood Pressure Values patient checking blood pressure at home - did not bring in readings 2018 None Alleviating Factors medication 09/04/2018 None Pertinent Findings Denies dizziness 09/04/2018 None Pertinent Findings dyspnea 09/04/2018 "always" Pertinent Findings edema 09/04/2018 bilateral- worse in right leg Onset and Resolution gradual in onset 09/04/2018 None Onset of Symptom during adulthood 09/04/2018 None Significant Medications statin 09/04/2018 None Alleviating Factors medication 09/04/2018 None Exacerbating Factors diet 09/04/2018 None Pertinent Findings decreased energy 09/04/2018 None Onset and Resolution ongoing 09/04/2018 None Limitation on Activities Denies moderately limits activities 09/04/2018 None Limitation on Activities Denies is incapacitating 09/04/2018 None Pertinent Findings weakness 09/04/2018 None Location-Major in a generalized area 09/04/2018 None Triggers no known triggers 09/04/2018 None Onset and Resolution Denies ongoing 09/04/2018 None Location on the right 07/25/2018 None Quality constant worse when standing on it Onset of Symptom 1 weeks ago 07/25/2018 None Pertinent Findings limping 07/25/2018 None Pertinent Findings pain with movement 07/25/2018 None Location lumbar-sacral spine 07/25/2018 None Quality constant None Onset of Symptom _ months ago 07/25/2018 worse this week Radiating down the right leg 07/25/2018 None Pertinent Findings extremity weakness 07/25/2018 None Pertinent Findings sleep disturbance 07/25/2018 None Annual Medicare Wellness Exam Smoking and Tobacco Use non smoker 05/30/2018 None Annual Medicare Wellness Exam Exercise Habits does not exercise 05/30/2018 None Annual Medicare Wellness Exam Alcohol Use does not drink any alcohol 05/30/2018 None Annual Medicare Wellness Exam Depression (last 6 months) almost never 05/30/2018 None Annual Medicare Wellness Exam Interaction with Friends yes 05/30/2018 None Annual Medicare Wellness Exam Social & Emotional Support always 05/30/2018 None Annual Medicare Wellness Exam Describe Your Health good 05/30/2018 None Annual Medicare Wellness Exam Depression or Hopelessness almost never 05/30/2018 None Annual Medicare Wellness Exam Motor Vehicle Safety always fastens seat belt: y 05/30/2018 None Annual Medicare Wellness Exam Motor Vehicle Safety drives after drinking: n 05/30/2018 None Annual Medicare Wellness Exam Motor Vehicle Safety rides with someone who has been drinking: n 2017 None Annual Medicare Wellness Exam Aspirin Use yes 05/30/2018 None Annual Medicare Wellness Exam Blood Glucose (self reported) don't know 05/30/2018 None Annual Medicare Wellness Exam Blood Pressure (self reported ) low / normal (120/80) 05/30/2018 None Annual Medicare Wellness Exam Cholesterol (self reported) desireable (below 200) 05/30/2018 None Annual Medicare Wellness Exam Handling Stress usually rena effectively 05/30/2018 None Annual Medicare Wellness Exam Hemaglobin A-1C (self reported ) don't know 05/30/2018 None Annual Medicare Wellness Exam Hours of Sleep 10 05/30/2018 None Annual Medicare Wellness Exam Interests & Pleasure almost all of the time 05/30/2018 None Annual Medicare Wellness Exam Life Satisfaction very satisfied 05/30/2018 None Annual Medicare Wellness Exam Nutrition servings of fried food / high fat foods per day: 1 2017 None Annual Medicare Wellness Exam Nutrition servings of high fiber / whole grain per day: 1 05/30/2018 None Annual Medicare Wellness Exam Nutrition servings of vegetables / fruit per day: 3 05/30/2018 None Annual Medicare Wellness Exam Stress some of the time 05/30/2018 None Annual Medicare Wellness Exam Sun Exposure protects skin when outdoors: y 05/30/2018 None paresthesia Quality intermittent 05/08/2018 None paresthesia Quality numbness 05/08/2018 None paresthesia Triggers no known associated factors 05/08/2018 None hypertension Quality chronic 05/08/2018 None hypertension Quality primary hypertension 05/08/2018 None hypertension Onset and Resolution ongoing 05/08/2018 None hypertension Onset of Symptom during adulthood 05/08/2018 None hypertension Blood Pressure Values patient checking blood pressure at home - did not bring in readings 05/08/2018 None hypertension Alleviating Factors medication 05/08/2018 None hypertension Pertinent Findings Denies dizziness 05/08/2018 None hypertension Pertinent Findings Denies dyspnea 05/08/2018 None hypertension Pertinent Findings Denies edema 05/08/2018 None paresthesia Location on both hands 05/08/2018 None skin lesion Quality enlarging 04/10/2018 None skin lesion Quality firm 04/10/2018 None skin lesion Onset and Resolution gradual in onset 04/10/2018 None skin lesion Onset of Symptom 6 months ago 04/10/2018 None paresthesia Location on both legs 03/06/2018 None paresthesia Quality intermittent 03/06/2018 None paresthesia Quality numbness 03/06/2018 None paresthesia Onset and Resolution ongoing 03/06/2018 None paresthesia Onset of Symptom months ago 03/06/2018 None paresthesia Frequency of Episodes decreasing 03/06/2018 None paresthesia Triggers no known associated factors 03/06/2018 None hypertension Quality primary hypertension 03/06/2018 None hypertension Onset and Resolution ongoing 03/06/2018 None hypertension Onset of Symptom during adulthood 03/06/2018 None hypertension Alleviating Factors medication 03/06/2018 None hypertension Pertinent Findings Denies dizziness 03/06/2018 None hypertension Pertinent Findings Denies dyspnea 03/06/2018 None hypertension Pertinent Findings edema 03/06/2018 None hypertension Quality chronic 03/06/2018 None hypertension Blood Pressure Values patient checking blood pressure at home - did not bring in readings 03/06/2018 None paresthesia Location on both legs 11/07/2017 None paresthesia Quality intermittent 11/07/2017 None paresthesia Quality numbness 11/07/2017 None paresthesia Onset and Resolution ongoing 11/07/2017 None paresthesia Onset of Symptom 8 months ago 11/07/2017 None paresthesia Triggers no known associated factors 11/07/2017 None hypertension Quality primary hypertension 11/07/2017 None hypertension Onset and Resolution ongoing 11/07/2017 None hypertension Onset of Symptom during adulthood 11/07/2017 None hypertension Alleviating Factors medication 11/07/2017 None paresthesia Frequency of Episodes decreasing 11/07/2017 None hypertension Blood Pressure Values not checking blood pressure at home 11/07/2017 None hypertension Pertinent Findings dizziness 11/07/2017 -episode occurred yesterday hypertension Pertinent Findings Denies dyspnea 11/07/2017 None hypertension Pertinent Findings Denies edema 11/07/2017 None paresthesia Location on both legs 09/12/2017 None paresthesia Quality numbness 09/12/2017 None paresthesia Onset and Resolution ongoing 09/12/2017 None paresthesia Onset of Symptom 6 months ago 09/12/2017 None paresthesia Quality intermittent 09/12/2017 None paresthesia Triggers no known associated factors 09/12/2017 None hypertension Onset and Resolution ongoing 04/11/2017 None hypertension Onset of Symptom during adulthood 04/11/2017 None hypertension Blood Pressure Values not checking blood pressure at home 04/11/2017 None hypertension Alleviating Factors medication 04/11/2017 None hypertension Pertinent Findings Denies dizziness 04/11/2017 None hypertension Pertinent Findings Denies dyspnea 04/11/2017 None hypertension Pertinent Findings Denies edema 04/11/2017 None hyperlipidemia Onset and Resolution gradual in onset 04/11/2017 None hyperlipidemia Onset of Symptom during adulthood 04/11/2017 None hyperlipidemia Alleviating Factors medication 04/11/2017 None hyperlipidemia Exacerbating Factors diet 04/11/2017 None Advance Directives No Advance Directive data Encounters Encounter Performer Location Codes Date ([id number]) 80541 EST. 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 PATIENT, LEVEL III Diagnosis: Low back pain[ICD10: M54.5] Diagnosis: Muscle weakness (generalized)[ICD10: M62.81] Diagnosis: Pain in left leg[ICD10: M79.605] Diagnosis: Pain in right leg[ICD10: M79.604] Diagnosis: Sacrococcygeal disorders, not elsewhere classified[ICD10: M53.3] Cristal Chicas MD, [facility] CPT-4: 43661 07/25/2018 ([id number]) 50109 EST. PATIENT, LEVEL III Diagnosis: Rash and other nonspecific skin eruption[ICD10: R21] Cristal Chicas MD [facility] CPT-4: 61950 05/08/2018 ([id number]) 67317 EST. PATIENT, LEVEL III Diagnosis: Corns and callosities[ICD10: L84] Diagnosis: Other specified polyneuropathies[ICD10: G62.89] Cristal Chicas MD [facility] CPT-4: 68325 04/10/2018 ([id number]) 55920 EST. PATIENT, LEVEL IV Diagnosis: Essential (primary) hypertension[ICD10: I10] Diagnosis: Rash and other nonspecific skin eruption[ICD10: R21] Diagnosis: Mixed hyperlipidemia[ICD10: E78.2] Cristal Chicas MD [facility] CPT-4: 58531 03/06/2018 ([id number]) 37981 EST. PATIENT, LEVEL IV Diagnosis: Essential (primary) hypertension[ICD10: I10] Diagnosis: Mixed hyperlipidemia[ICD10: E78.2] Diagnosis: Muscle weakness (generalized)[ICD10: M62.81] Cristal Chicas MD [facility] CPT-4: 87195 11/07/2017 ([id number]) 38573 EST. PATIENT, LEVEL IV Diagnosis: Essential (primary) hypertension[ICD10: I10] Diagnosis: Muscle weakness (generalized)[ICD10: M62.81] Diagnosis: Low back pain[ICD10: M54.5] Cristal Chicas MD [facility] CPT- 4: 17326 09/12/2017 ([id number]) OFFICE VISIT, NEW - LEVEL 4 Diagnosis: Essential (primary) hypertension[ICD10: I10] Diagnosis: Mixed hyperlipidemia[ICD10: E78.2] [facility] CPT-4: 90732 04/11/2017 Plan of Care Planned Activity Notes Codes Status Date Visit Plan: Muscle weakness - discussed with patient - continue with strengthening activities - continue with use of cane. CHF - hopefully symptoms will improve with the replacement of his pacemaker. 09/18/2018 Patient Education: Patient Medication Summary Completed 09/18/2018 Visit Plan: Cellulitis - with infected sebaceous cyst - discussed with the pt - I have advised removal of sebaceous cyst - with dr. sam in the next 3 weeks. keflex antibiotic - take four times a day x 10 days take a PROBIOTIC - like culturelle three times a day while taking the antibiotic. Depression - I have advised the pt to increase the citalopram to 20mg daily. Heart failure - discussed with pt keep appt with [facility] in [place] - pt needs his pacemaker/defibrillator replaced. Hypertension - well controlled - continue with current medications, continue with no added salt diet. Pt has been encouraged to exercise daily. The pt has been advised to call the office if there are any acute concerns about change in blood pressure readings at home. 09/04/2018 Appointment: Cristal Chicas WPtel: [address] [place], [place] [phone] (15 min) Moderate 09/04/2018 Patient Education: Patient Medication Summary Completed 09/04/2018 Visit Plan: Lumbar spine pain - with radiculopathy - I have recommended that the patient be seen at [facility] for back pain injections. 07/25/2018 Appointment: Cristal Chicas WPtel[facility] (15 min) Moderate 07/25/2018 Patient Education: Patient Medication Summary Completed 07/25/2018 Patient Education: Back Pain Completed 07/25/2018 Care Plan: Referral Order SNOMED-CT : [id number] Pending 07/25/2018 Referral: [facility]i [facility] HPtel:[phone] [facility] Ref[facility] Initiated 06/17/2018 Care Plan: Referral Order SNOMED-CT : [id number] Pending 05/31/2018 Visit Plan: Medicare Exam - today we discussed the patients past history, immunizations, preventative exams/evaluations - colonoscopy, fecal occult blood testing, routine labs for renal function, glucose, cholesterol, osteoporosis evaluations, cardiovascular testing and cancer screenings. We have also discussed mental health and the signs/symptoms of depression. The patient was advised of home safety evaluations and the need to make sure that as the aging process continues, we need to be aware of different ways to make the home a safer place to reside. The patient has also been counseled that exercise is necessary - and of utmost importance as we age to help decrease fall risk and to maintain independece in the home. Today we discussed the need for the patient to create paperwork for Advanced directives as well as for the patient to provide this office with a copy of her DOPA paperwork for health care surrogate. 05/30/2018 Visit Plan: Medicare Exam - today we discussed the patients past history, immunizations, preventative exams/evaluations - colonoscopy, fecal occult blood testing, routine labs for renal function, glucose, cholesterol, osteoporosis evaluations, cardiovascular testing and cancer screenings. We have also discussed mental health and the signs/symptoms of depression. The patient was advised of home safety evaluations and the need to make sure that as the aging process continues, we need to be aware of different ways to make the home a safer place to reside. The patient has also been counseled that exercise is necessary - and of utmost importance as we age to help decrease fall risk and to maintain independece in the home. Today we discussed the need for the patient to create paperwork for Advanced directives as well as for the patient to provide this office with a copy of her DOPA paperwork for health care surrogate. 05/30/2018 Appointment: Karly Duong WPtel[facility] [phone] [facility] [facility] - Annual Wellness Visit 05/30/2018 Patient Education: Patient Medication Summary Completed 05/30/2018 Care Plan: Comp Metabolic Pending 05/30/2018 Care Plan: Cbc With Differential Pending 05/30/2018 Care Plan: Tsh Pending 05/30/2018 Care Plan: Lipid Pending 05/30/2018 Care Plan: Total Psa Pending 05/30/2018 Visit Plan: Rash - improved - continue with steroid and antifungal cream. 05/08/2018 Appointment: Cristal Chicas WPtel[facility] [phone] [facility] (15 min) Moderate 05/08/2018 Patient Education: Patient Medication Summary Completed 05/08/2018 Visit Plan: Pre-ulcerative callus - Phone call placed to Dr. Warren - I have left a message, the patient needs to have off loading of stump of great toe on right foot. Pt needs to have pressure off the toe on the right to help decrease the irritation of the stump. 04/10/2018 Appointment: Cristal Chicas [facility]Ptel[facility] [phone] [facility] (15 min) Moderate 04/10/2018 Patient Education: Patient Medication Summary Completed 04/10/2018 Visit Plan: Hypertension - well controlled - continue with current medications, continue with no added salt diet. Pt has been encouraged to exercise daily. The pt has been advised to call the office if there are any acute concerns about change in blood pressure readings at home. Hyperlipidemia - pt has been counseled about appropriate diet, exercise, and need for low fat food choices. I have discussed the need for the patient to take medications as prescribed. If the patient has negative side effects from the medication, they are to CALL the office and not abruptly discontinue the medication without discussion with a practitioner in the office. We will check labs in 3-6 months for follow up on the patient's chronic medical problem and to assure normal liver response to medications. Rash - RX for steroid and anti-fungal. 03/06/2018 Appointment: Cristal Chicas WPtel[facility] [phone] [facility] (15 min) Moderate 03/06/2018 Patient Education: Patient Medication Summary Completed 03/06/2018 Visit Plan: Discussed with Dr. Cobos - he states that the patient has chronic PVC's and Dr. Cobos stated that he would see the pt tomorrow to do an EKG. Hypertension - well controlled - continue with current medications, continue with no added salt diet. Pt has been encouraged to exercise daily. The pt has been advised to call the office if there are any acute concerns about change in blood pressure readings at home. Low back pain and leg weakness -symptoms improved with therapy pt to continue with exercises - encouraged pt to increase his activity to try to get his strength even more improved. 11/07/2017 Appointment: Cristal [facility]astel[facility] [phone] [facility] (15 min) Moderate 11/07/2017 Patient Education: Patient Medication Summary Completed 11/07/2017 Referral: [facility] WPtel: Patient informed by Cynthia. Completed 09/26/2017 Visit Plan: Hypertension - well controlled - continue with current medications, continue with no added salt diet. Pt has been encouraged to exercise daily. The pt has been advised to call the office if there are any acute concerns about change in blood pressure readings at home. Low back pain and leg weakness - rx for imaging of the lower back and physical therapy 09/12/2017 Visit Plan: Hypertension - well controlled - continue with current medications, continue with no added salt diet. Pt has been encouraged to exercise daily. The pt has been advised to call the office if there are any acute concerns about change in blood pressure readings at home. Low back pain and leg weakness - rx for imaging of the lower back and physical therapy 09/12/2017 Appointment: Cristal Chicas WPtel[facility] [phone] [facility] (15 min) Moderate 09/12/2017 Patient Education: Patient Medication Summary Completed 09/12/2017 Care Plan: Referral Order SNOMED-CT : [id number] Pending 09/12/2017 Visit Plan: Hypertension - well controlled - continue with current medications, continue with no added salt diet. Pt has been encouraged to exercise daily. The pt has been advised to call the office if there are any acute concerns about change in blood pressure readings at home. Hyperlipidemia - pt has been counseled about appropriate diet, exercise, and need for low fat food choices. I have discussed the need for the patient to take medications as prescribed. If the patient has negative side effects from the medication, they are to CALL the office and not abruptly discontinue the medication without discussion with a practitioner in the office. We will check labs in 3-6 months for follow up on the patient's chronic medical problem and to assure normal liver response to medications. Pt on lipitor 80 mg daily. 04/11/2017 Visit Plan: Hypertension - well controlled - continue with current medications, continue with no added salt diet. Pt has been encouraged to exercise daily. The pt has been advised to call the office if there are any acute concerns about change in blood pressure readings at home. Hyperlipidemia - pt has been counseled about appropriate diet, exercise, and need for low fat food choices. I have discussed the need for the patient to take medications as prescribed. If the patient has negative side effects from the medication, they are to CALL the office and not abruptly discontinue the medication without discussion with a practitioner in the office. We will check labs in 3-6 months for follow up on the patient's chronic medical problem and to assure normal liver response to medications. Pt on lipitor 80 mg daily. 04/11/2017 Appointment: Cristal Chicas WPtel[facility] [phone] [facility] New Patient 04/11/2017 Patient Education: Patient Medication Summary Completed 04/11/2017 Care Plan: Comp Metabolic Cancelled 04/11/2017 Care Plan: Cbc With Differential Cancelled 04/11/2017 Care Plan: Tsh Cancelled 04/11/2017 Care Plan: Lipid Cancelled 04/11/2017 Care Plan: Total Psa Cancelled 04/11/2017 Referral: [facility] Referral Appointment Requested Referral: Mani Sam HPtel:[phone] [facility] [place] Referral Initiated Referral: [facility] WPtel: Referral Appointment Requested Instructions Comment . Pre-ulcerative callus - Phone call placed to Dr. [facility] - I have left a message, the patient needs to have off loading of stump of great toe on right foot. Pt needs to have pressure off the toe on the right to help decrease the irritation of the stump. . Hypertension - well controlled - continue with current medications, continue with no added salt diet. Pt has been encouraged to exercise daily. The pt has been advised to call the office if there are any acute concerns about change in blood pressure readings at home. Hyperlipidemia - pt has been counseled about appropriate diet, exercise, and need for low fat food choices. I have discussed the need for the patient to take medications as prescribed. If the patient has negative side effects from the medication, they are to CALL the office and not abruptly discontinue the medication without discussion with a practitioner in the office. We will check labs in 3-6 months for follow up on the patient's chronic medical problem and to assure normal liver response to medications. Pt on lipitor 80 mg daily. . Hypertension - well controlled - continue with current medications, continue with no added salt diet. Pt has been encouraged to exercise daily. The pt has been advised to call the office if there are any acute concerns about change in blood pressure readings at home. Hyperlipidemia - pt has been counseled about appropriate diet, exercise, and need for low fat food choices. I have discussed the need for the patient to take medications as prescribed. If the patient has negative side effects from the medication, they are to CALL the office and not abruptly discontinue the medication without discussion with a practitioner in the office. We will check labs in 3-6 months for follow up on the patient's chronic medical problem and to assure normal liver response to medications. Pt on lipitor 80 mg daily. . Medicare Exam - today we discussed the patients past history, immunizations, preventative exams/evaluations - colonoscopy, fecal occult blood testing, routine labs for renal function, glucose, cholesterol, osteoporosis evaluations, cardiovascular testing and cancer screenings. We have also discussed mental health and the signs/symptoms of depression. The patient was advised of home safety evaluations and the need to make sure that as the aging process continues, we need to be aware of different ways to make the home a safer place to reside. The patient has also been counseled that exercise is necessary - and of utmost importance as we age to help decrease fall risk and to maintain independece in the home. Today we discussed the need for the patient to create paperwork for Advanced directives as well as for the patient to provide this office with a copy of her DOPA paperwork for health care surrogate. . Medicare Exam - today we discussed the patients past history, immunizations, preventative exams/evaluations - colonoscopy, fecal occult blood testing, routine labs for renal function, glucose, cholesterol, osteoporosis evaluations, cardiovascular testing and cancer screenings. We have also discussed mental health and the signs/symptoms of depression. The patient was advised of home safety evaluations and the need to make sure that as the aging process continues, we need to be aware of different ways to make the home a safer place to reside. The patient has also been counseled that exercise is necessary - and of utmost importance as we age to help decrease fall risk and to maintain independece in the home. Today we discussed the need for the patient to create paperwork for Advanced directives as well as for the patient to provide this office with a copy of her DOPA paperwork for health care surrogate. . Hypertension - well controlled - continue with current medications, continue with no added salt diet. Pt has been encouraged to exercise daily. The pt has been advised to call the office if there are any acute concerns about change in blood pressure readings at home. Hyperlipidemia - pt has been counseled about appropriate diet, exercise, and need for low fat food choices. I have discussed the need for the patient to take medications as prescribed. If the patient has negative side effects from the medication, they are to CALL the office and not abruptly discontinue the medication without discussion with a practitioner in the office. We will check labs in 3-6 months for follow up on the patient's chronic medical problem and to assure normal liver response to medications. Rash - RX for steroid and anti-fungal. . Hypertension - well controlled - continue with current medications, continue with no added salt diet. Pt has been encouraged to exercise daily. The pt has been advised to call the office if there are any acute concerns about change in blood pressure readings at home. Low back pain and leg weakness - rx for imaging of the lower back and physical therapy . Hypertension - well controlled - continue with current medications, continue with no added salt diet. Pt has been encouraged to exercise daily. The pt has been advised to call the office if there are any acute concerns about change in blood pressure readings at home. Low back pain and leg weakness - rx for imaging of the lower back and physical therapy . Muscle weakness - discussed with patient - continue with strengthening activities - continue with use of cane. CHF - hopefully symptoms will improve with the replacement of his pacemaker. . Lumbar spine pain - with radiculopathy - I have recommended that the patient be seen at [facility] for back pain injections. keflex antibiotic - take four times a day x 10 days take a PROBIOTIC - like culturelle three times a day while taking the antibiotic increase the citalopram to 20mg daily. . Cellulitis - with infected sebaceous cyst - discussed with the pt - I have advised removal of sebaceous cyst - with dr. sam in the next 3 weeks. keflex antibiotic - take four times a day x 10 days take a PROBIOTIC - like culturelle three times a day while taking the antibiotic. Depression - I have advised the pt to increase the citalopram to 20mg daily. Heart failure - discussed with pt keep appt with [facility] in [place] - pt needs his pacemaker/defibrillator replaced. Hypertension - well controlled - continue with current medications, continue with no added salt diet. Pt has been encouraged to exercise daily. The pt has been advised to call the office if there are any acute concerns about change in blood pressure readings at home. . Rash - improved - continue with steroid and antifungal cream. . Discussed with Dr. Cobos - he states that the patient has chronic PVC's and Dr. Cobos stated that he would see the pt tomorrow to do an EKG. Hypertension - well controlled - continue with current medications, continue with no added salt diet. Pt has been encouraged to exercise daily. The pt has been advised to call the office if there are any acute concerns about change in blood pressure readings at home. Low back pain and leg weakness -symptoms improved with therapy pt to continue with exercises - encouraged pt to increase his activity to try to get his strength even more improved.
--- OUTSIDE RECORDS SUMMARY | 2018-09-23 11:04 | XMS REPORT | CCD ---
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 ICD-9: 428.42 ICD-10: I50.42 Active 09/04/2018 Unknown Essential (primary) hypertension ICD-9: 401.1 ICD-10: I10 Active 04/11/2017 Unknown Muscle weakness (generalized) ICD-9: 728.87 ICD-10: M62.81 Active 09/12/2017 Unknown Other fatigue ICD-9: 780.79 ICD-10: R53.83 Active 09/04/2018 Unknown Sebaceous cyst ICD-9: 706.2 [...] Problems Condition Codes Effective Dates Condition Status Cellulitis of back [any part except buttock] ICD-9: 682.2 ICD-10: L03.312 09/04/2018 Active 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 ICD-9: 428.42 ICD-10: I50.42 09/04/2018 Active Essential (primary) hypertension ICD-9: 401.1 ICD-10: I10 04/11/2017 Active Muscle weakness (generalized) ICD-9: 728.87 ICD-10: M62.81 09/12/2017 Active Other fatigue ICD-9: 780.79 ICD-10: R53.83 09/04/2018 Active Sebaceous cyst ICD-9: 706.2 ICD-10: [...] Instructions clobetasol 0.05 % topical cream RxNorm: 151244 2 Gram(s) TOP BID 09/04/2018 11/02/2018 Active Keflex 500 mg capsule RxNorm: 655026 1 Capsule(s) PO QID 201809/13/2018 Active clotrimazole 1 % topical cream RxNorm: 944371 2 Gram(s) TOP BID 09/04/2018 11/02/2018 Active citalopram 20 mg tablet RxNorm: 222343 1 Tablet(s) PO daily 12/2018 No Stop Date Active metoprolol succinate ER 100 mg tablet,extended release 24 hr RxNorm: 190430 TAKE 1 TABLET BY MOUTH ONCE DAILY 09/02/2018 No Stop Date Active terbinafine HCl 250 mg tablet RxNorm: 453495 TAKE 1 TABLET BY MOUTH ONCE DAILY 08/27/2018 No Stop Date Active gabapentin 400 mg capsule RxNorm: 223688 1 Capsule(s) PO UD TAKE 1 CAPSULE BY MOUTH in morning, afternoon and two at bedtime 07/25/2018 No Stop Date Active gabapentin 400 mg capsule RxNorm: 499906 TAKE 1 CAPSULE BY MOUTH THREE TIMES DAILY 07/01/2018 07/24/2018 Inactive allopurinol 300 mg tablet RxNorm: 526011 TAKE 1 TABLET BY MOUTH ONCE DAILY 06/25/2018 No Stop Date Active clonazepam 0.5 mg tablet RxNorm: 577795 1 Tablet(s) PO QHS as needed 06/25/2018 09/22/2018 Active citalopram 10 mg tablet RxNorm: 401530 TAKE 1 TABLET BY MOUTH ONCE DAILY 06/19/2018 09/03/2018 Inactive terbinafine HCl 250 mg tablet RxNorm: 791868 TAKE 1 TABLET BY MOUTH ONCE DAILY 05/20/2018 08/26/2018 Inactive atorvastatin 80 mg tablet RxNorm: 737327 1/2 Tablet(s) PO daily 05/08/2018 No Stop Date Active clobetasol 0.05 % topical cream RxNorm: 516498 2 Gram(s) TOP BID 05/08/2018 07/06/2018 Inactive clotrimazole 1 % topical cream RxNorm: 237333 2 Gram(s) TOP BID 05/08/2018 07/06/2018 Inactive allopurinol 300 mg tablet RxNorm: 197943 TAKE 1 TABLET BY MOUTH ONCE DAILY 05/06/2018 06/24/2018 Inactive terbinafine HCl 250 mg tablet RxNorm: 735347 1 Tablet(s) PO daily 04/23/2018 05/19/2018 Inactive gabapentin 400 mg capsule RxNorm: 958050 TAKE 1 CAPSULE BY MOUTH THREE TIMES DAILY 04/22/2018 06/30/2018 Inactive clotrimazole 1 % topical cream RxNorm: 806582 2 Gram(s) TOP BID 04/10/2018 04/23/2018 Inactive clobetasol 0.05 % topical cream RxNorm: 911552 2 Gram(s) TOP BID 04/10/2018 04/23/2018 Inactive clonazepam 0.5 mg tablet RxNorm: 680271 1 Tablet(s) PO QHS as needed 03/19/2018 06/15/2018 Inactive clobetasol 0.05 % topical cream RxNorm: 691174 2 Gram(s) TOP BID 03/06/2018 03/19/2018 Inactive clotrimazole 1 % topical cream RxNorm: 396365 2 Gram(s) TOP BID 03/06/2018 03/19/2018 Inactive metoprolol succinate ER 100 mg tablet,extended release 24 hr RxNorm: 294693 TAKE 1 TABLET BY MOUTH ONCE DAILY 02/25/2018 Inactive gabapentin 400 mg capsule RxNorm: 613712 TAKE 1 CAPSULE BY MOUTH THREE TIMES DAILY 02/21/2018 04/21/2018 Inactive citalopram 10 mg tablet RxNorm: 825690 1 Tablet(s) PO daily 06/201806/06/2018 Inactive allopurinol 300 mg tablet RxNorm: 806289 TAKE 1 TABLET BY MOUTH ONCE DAILY 01/28/2018 05/05/2018 Inactive clonazepam 0.5 mg tablet RxNorm: 596231 1 Tablet(s) PO QHS as needed 01/14/2018 03/12/2018 Inactive fluticasone 50 mcg/actuation nasal spray,suspension RxNorm: 5486397 USE ONE SPRAY( S) IN EACH NOSTRIL ONCE DAILY 12/20/2017 No Stop Date Active allopurinol 300 mg tablet RxNorm: 472006 TAKE ONE TABLET BY MOUTH ONCE DAILY 10/18/2017 01/27/2018 Inactive clonazepam 0.5 mg tablet RxNorm: 421261 1 Tablet(s) PO QHS as needed 10/11/2017 01/07/2018 Inactive gabapentin 400 mg capsule RxNorm: 469865 TAKE ONE CAPSULE BY MOUTH THREE TIMES DAILY 09/19/2017 02/20/2018 Inactive metoprolol succinate ER 100 mg tablet,extended release 24 hr RxNorm: 549893 TAKE ONE TABLET BY MOUTH ONCE DAILY 09/19/2017 02/24/2018 Inactive clonazepam 0.5 mg tablet RxNorm: 161546 1 Tablet(s) PO QHS as needed 08/14/2017 05/07/2018 Inactive fluticasone 50 mcg/actuation nasal spray,suspension RxNorm: 2173602 1 [place] NASAL daily 08/09/2017 12/19/2017 Inactive amoxicillin 500 mg capsule RxNorm: 644696 1 Capsule(s) PO TID 07/27/2017 08/02/2017 Inactive amoxicillin 500 mg capsule RxNorm: 914277 1 Capsule(s) PO TID 07/27/2017 07/26/2017 Inactive allopurinol 300 mg tablet RxNorm: 148305 1 Tablet(s) PO daily 06/27/2017 09/24/2017 Inactive Keflex 500 mg capsule RxNorm: 357827 1 Capsule(s) PO TID 201606/07/2017 Inactive Take probiotic TID while on ABT Keflex 500 mg capsule RxNorm: 351823 1 Capsule(s) PO TID 201606/14/2017 Inactive Take probiotic TID while on ABT clonazepam 0.5 mg tablet RxNorm: 529710 1 Tablet(s) PO QHS as needed 04/30/2017 05/07/2018 Inactive meloxicam 15 mg tablet RxNorm: 345138 1 Tablet(s) PO daily 09/11/2017 Inactive metoprolol succinate ER 100 mg tablet,extended release 24 hr RxNorm: 803026 1 Tablet(s) PO daily 04/16/2017 09/12/2017 Inactive gabapentin 400 mg capsule RxNorm: 090463 1 Capsule(s) PO TID 09/12/2017 Inactive Complete Multivitamin oral RxNorm: 17041 oral No Start Date Active lisinopril 2.5 mg tablet RxNorm: 819163 1 Tablet(s) PO daily No Start Date Active Aspirin Low Dose 81 mg tablet,delayed release RxNorm: 194657 2 Tablet(s) PO daily No Start Date Active furosemide 40 mg tablet RxNorm: 819967 1 Tablet(s) PO daily No Start Date Active spironolactone 25 mg tablet RxNorm: 085373 1 Tablet(s) PO daily No Start Date Active amiodarone 200 mg tablet RxNorm: 615428 1 Tablet(s) PO daily No Start Date Active Fish Oil capsule RxNorm: Capsule(s) PO No Start Date Active vitamin E 400 unit capsule RxNorm: 149263 1 Capsule(s) PO daily No Start Date Active citalopram 10 mg tablet RxNorm: 497221 1 Tablet(s) PO daily No Start Date 02/06/2018 Inactive lisinopril 10 mg tablet RxNorm: 186574 1 Tablet(s) PO daily No Start Date 05/07/2018 Inactive digoxin 125 mcg tablet RxNorm: 436090 1 Tablet(s) PO daily No Start Date 05/07/2018 Inactive Lamisil oral RxNorm: oral No Start Date Inactive atorvastatin 80 mg tablet RxNorm: 743903 1 Tablet(s) PO daily No Start Date 05/07/2018 Inactive gabapentin 400 mg capsule RxNorm: 313053 1 Capsule(s) PO TID No Start Date 04/15/2017 Inactive allopurinol 300 mg tablet RxNorm: 058499 1 Tablet(s) PO daily No Start Date 06/26/2017 Inactive metoprolol succinate ER 100 mg tablet,extended release 24 hr RxNorm: 692646 1 Tablet(s) PO daily No Start Date 2016 Inactive fluticasone 50 mcg/actuation nasal spray,suspension RxNorm: 3795613 [place] NASAL No Start Date 08/08/2017 Inactive Entresto 49 mg-51 mg tablet RxNorm: 8995678 2 Tablet(s) PO daily No Start Date 05/07/2018 Inactive clonazepam 0.5 mg tablet RxNorm: 252066 1 Tablet(s) PO QHS No Start Date 04/29/2017 Inactive meloxicam 15 mg tablet RxNorm: 323663 1 Tablet(s) PO daily No Start Date 04/15/2017 Inactive Medication Administered No Medication Administered data Immunizations Vaccine Codes Date Status Influenza CVX: 141 05/03/2018 completed Assessments Condition Codes Effective Dates Muscle weakness (generalized) ICD-10: M62.81 ICD-9: 728.87 09/04/2018 Other fatigue ICD-10: R53.83 ICD-9: 780.79 09/04/2018 Essential (primary) hypertension ICD-10: I10 ICD-9: 401.1 09/04/2018 Chronic combined systolic (congestive) and diastolic (congestive) heart failure ICD-10: I50.42 ICD-9: 428.42 09/04/2018 Sebaceous cyst ICD-10: L72.3 ICD-9: 706.2 [...] Reason For Visit Effective Dates Notes hypertension 09/04/2018 knee pain 07/25/2018 Annual Medicare Wellness Exam 05/30/2018 paresthesia 05/08/2018 skin lesion 04/10/2018 paresthesia 03/06/2018 paresthesia 11/07/2017 paresthesia 09/12/2017 hypertension 04/11/2017 Results Observation Observation Code Item Item Code Result Date UA W/MICR 2001305 UA Protein 1+ 06/07/2017 UA W/MICR 1752761 UA Hemoglobin Negative 06/07/2017 UA W/MICR 2226544 UA Glucose Negative 06/07/2017 UA W/MICR 9391799 UA Ketones Negative 06/07/2017 UA W/MICR 6673091 UA pH 8.5 06/07/2017 UA W/MICR 1013544 U Spec [place] 1.011 06/07/2017 UA W/MICR 2284839 UA Bilirubin Negative 06/07/2017 UA W/MICR 6671829 UA Leuk Esteras 3+ 06/07/2017 UA W/MICR 6753755 UA Nitrite Positive 06/07/2017 UA W/MICR 1031792 UA WBC/hpf 1 06/07/2017 UA W/MICR 5954087 UA RBC hpf 0 06/07/2017 UA W/MICR 3804481 UA RBC auto 2.3 /uL 06/07/2017 UA W/MICR 7127754 UA WBC auto 3.1 /uL 06/07/2017 UA W/MICR 2923326 UA SQ EPI auto 1.4 /uL 06/07/2017 UA W/MICR 4424665 UA H Cast auto 0.10 /uL 06/07/2017 PROT CR RU [id number] U Protein 23 mg/dL 06/07/2017 PROT CR RU [id number] U Creatinine 59 mg/dL 06/07/2017 PROT CR RU [id number] Prot:Creat Rat 390 mg/g 06/07/2017 GFR CALC 7556033 GFR Non Afr Amr 44 mL/min 06/06/2017 GFR CALC 3750404 GFR Afr Amr 53 mL/min 06/06/2017 CBC 3914986 WBC 6.0 10e9/L 06/06/2017 CBC 6471676 RBC 4.54 10e12/L 06/06/2017 CBC 4269009 HEMOGLOBIN 15.1 g/dL 06/06/2017 CBC 8294600 HEMATOCRIT 45.6 % 06/06/2017 CBC 5773865 MCV 100.4 fL 06/06/2017 CBC 5710904 MCH 33.3 pg 06/06/2017 CBC 8770427 MCHC 33.1 g/dL 06/06/2017 CBC 7629433 PLATELET COUNT 109 10e9/L 06/06/2017 CBC 5462377 Mean Plt Volume 12.5 fL 06/06/2017 CBC 3564074 Neut Auto 61.4 % 06/06/2017 CBC 3047011 Lymph Auto 24.1 % 06/06/2017 CBC 1767619 [place] Auto 10.9 % 06/06/2017 CBC 9190402 Eos Auto 3.3 % 06/06/2017 CBC 9188618 RDW 15.0 % 06/06/2017 CBC 0081331 Baso Auto 0.3 % 06/06/2017 CBC 1286581 Neutrophil Abs 3.68 10e9/L 06/06/2017 CBC 5489982 Lymphocyte Abs 1.45 10e9/L 06/06/2017 CBC 1785909 Monocyte Abs 0.65 10e9/L 06/06/2017 CBC 7471556 Eosinophil Abs 0.20 10e9/L 06/06/2017 CBC 4054613 Basophil Abs 0.02 10e9/L 06/06/2017 CBC 4671328 RDW-SD 53.7 fL 06/06/[address] 20271222 BUN 24 mg/dL 06/06/[address] 20271222 CREATININE 1.57 mg/dL 06/06/[address] 20271222 PHOSPHORUS 3.2 mg/dL 06/06/[address] 20271222 CALCIUM 9.9 mg/dL 06/06/[address] 20271222 POTASSIUM 4.8 mmol/L 06/06/[address] 20271222 SODIUM 137 mmol/L 06/06/[address] 0539303 ALBUMIN 4.3 g/dL 06/06/[address] 1529184 CHLORIDE 106 mmol/L 06/06/[address] 8438329 Bicarbonate 26 mmol/L 06/06/[address] 20271222 GLUCOSE 111 mg/dL 06/06/2017 LIPID GRP CHOLESTEROL 97 mg/dL 04/11/2017 LIPID GRP Triglyceride 204 mg/dL 04/11/2017 LIPID GRP HDL CHOLESTEROL 28 mg/dL 04/11/2017 LIPID GRP Chol/HDL Ratio 3.46 ratio 04/11/2017 LIPID GRP NON-HDL Chol 69 mg/dL 04/11/2017 LIPID GRP LDL Cholesterol 28 mg/dL 04/11/2017 CBC 8750895 WBC 7.0 10e9/L 04/11/2017 CBC 1623454 RBC 4.48 10e12/L 04/11/2017 CBC 7390096 HEMOGLOBIN 14.9 g/dL 04/11/2017 CBC 1505540 HEMATOCRIT 45.0 % 04/11/2017 CBC 8565080 MCV 100.4 fL 04/11/2017 CBC 9795607 MCH 33.3 pg 04/11/2017 CBC 8793696 MCHC 33.1 g/dL 04/11/2017 CBC 2459049 PLATELET COUNT 116 10e9/L 04/11/2017 CBC 0875682 Mean Plt Volume 12.8 fL 04/11/2017 CBC 0053016 Neut Auto 64.0 % 04/11/2017 CBC 3940829 Lymph Auto 19.8 % 04/11/2017 CBC 1368296 [place] Auto 13.2 % 04/11/2017 CBC 3981741 RDW 14.9 % 04/11/2017 CBC 3697957 Eos Auto 2.7 % 04/11/2017 CBC 8327519 Baso Auto 0.3 % 04/11/2017 CBC 1886197 Neutrophil Abs 4.48 10e9/L 04/11/2017 CBC 5588810 Lymphocyte Abs 1.39 10e9/L 04/11/2017 CBC 1668596 Monocyte Abs 0.92 10e9/L 04/11/2017 CBC 1578303 Eosinophil Abs 0.19 10e9/L 04/11/2017 CBC 4178121 RDW-SD 53.5 fL 04/11/2017 CBC 9494310 Basophil Abs 0.02 10e9/L 04/11/2017 GFR CALC 8508887 GFR Non Afr Amr 38 mL/min 04/11/2017 GFR CALC 7559535 GFR Afr Amr 46 mL/min 04/11/2017 TSH 8936582 TSH 2.445 uIU/mL 04/11/2017 PSA EQ 20110923 PSA Total 0.54 ng/mL 04/11/2017 CHEM 14 2954295 AST 26 U/L 04/11/2017 CHEM 14 3918794 ALT 22 U/L 04/11/2017 CHEM 14 3131454 BUN 36 mg/dL 04/11/2017 CHEM 14 9995198 ALBUMIN 4.5 g/dL 04/11/2017 CHEM 14 7390400 CHLORIDE 101 mmol/L 04/11/2017 CHEM 14 4378943 [place]ili Total 1.1 mg/dL 04/11/2017 CHEM 14 0465409 ALK PHOS 82 U/L 04/11/2017 CHEM 14 6801657 SODIUM 139 mmol/L 04/11/2017 CHEM 14 0247550 CREATININE 1.76 mg/dL 04/11/2017 CHEM 14 8805988 CALCIUM 10.2 mg/dL 04/11/2017 CHEM 14 4715005 POTASSIUM 4.6 mmol/L 04/11/2017 CHEM 14 9773335 TOTAL PROTEIN 7.3 g/dL 04/11/2017 CHEM 14 3804721 GLUCOSE 92 mg/dL 04/11/2017 CHEM 14 3414485 Bicarbonate 32 mmol/L 04/11/2017 CHEM 14 4425421 AGAP 6 mmol/L 04/11/2017 Review of Systems System Result Effective Dates Constitutional recent illness 09/04/2018 Constitutional No chills [...] lips 09/04/2018 None Full Exam - General 1994 Ears/Nose/Throat lips/teeth/gingiva Overall: normal dentition 09/04/2018 None Full Exam - General 1994 [...] General 1994 Ears/Nose/Throat lips/teeth/gingiva Overall: benign lips 03/06/2018 None [...] 2+ being normal): Left and right patella: 2/4 11/07/2017 None Full Exam - General 1994 Neurologic deep tendon reflexes (graded 0-4+ with 2+ being normal): Left and right Achilles: 2/4 11/07/2017 None Full Exam - General [...] 2+ being normal): Left and right biceps: 24 09/12/2017 None Full Exam - General 1994 Neurologic deep tendon reflexes (graded 0-4+ with 2+ being normal): Left and right patella: 24 09/12/2017 None Full Exam - General 1994 [...] -4: G0439 05/30/2018 Vital Signs Date Vital 09/04/2018 Blood Pressure 1: 92/64 Code : 8480-6 BMI: 35.6 Code : 55684-9 Heart Rate 1 : 71 bpm Height: 6'3" SpO2: 95% Weight: 285 lbs 07/25/2018 Blood Pressure 1: 118/70 Code : 8480-6 Heart Rate 1: 72 bpm Height: SpO2: 94% Weight: 05/30/2018 Blood Pressure 1: 120/62 Code : 8480-6 BMI: 33.6 Code : 63553-8 Heart Rate 1 : 85 bpm Height: 6'3" SpO2: 96% Weight: 269 lbs 05/08/2018 Blood Pressure 1: 108/68 Code : 8480-6 BMI: 33.9 Code : 67723-3 Heart Rate 1 : 87 bpm Height: 6'3" SpO2: 98% Weight: 271 lbs 04/10/2018 Blood Pressure 1: 100/64 Code : 8480-6 BMI: 33.5 Code : 89693-1 Heart Rate 1 : 86 bpm Height: 6'3" SpO2: 95% Weight: 268 lbs 03/06/2018 Blood Pressure 1: 106/70 Code : 8480-6 BMI: 34.5 Code : 14760-1 Heart Rate 1 : 87 bpm Height: 6'3" SpO2: 97% Weight: 276 lbs 11/07/2017 Blood Pressure 1: 92/56 Code : 8480-6 BMI: 33.2 Code : 80786-8 Heart Rate 1 : 46 bpm Height: 6'3" SpO2: 98% Weight: 266 lbs 09/12/2017 Blood Pressure 1: 110/60 Code : 8480-6 BMI: 32.6 Code : 66870-0 Heart Rate 1 : 89 bpm Height: 6'3" SpO2: 97% Weight: 261 lbs 04/11/2017 Blood Pressure 1: 118/64 Code : 8480-6 BMI: 33.5 Code : 44153-2 Heart Rate 1 : 82 bpm Height: 6'3" SpO2: 96% Weight: 268 lbs Functional Status No Functional Status data History of Present Illness Symptom Name Status Result Effective Date Notes Quality chronic 09/04 None Quality primary hypertension [...] Directive data Encounters Encounter Performer Location Codes [id number]) [id number] EST. PATIENT, LEVEL IV Diagnosis: Chronic combined systolic (congestive) and diastolic (congestive) heart failure[ICD10: I50.42] Diagnosis: Essential (primary) hypertension[ICD10: I10] Diagnosis: Muscle weakness (generalized)[ICD10: M62.81] Diagnosis: Sebaceous cyst[ICD10: L72.3] Diagnosis: Cellulitis of back [any part except buttock][ICD10: L03.312] Diagnosis: Other fatigue[ICD10: R53.83] [facility] CPT- 4: 68918 09/04/2018 ([id number]) 89011 EST. PATIENT, LEVEL III Diagnosis: Low back pain[ICD10: M54.5] Diagnosis: Muscle weakness (generalized)[ICD10: M62.81] Diagnosis: Pain in left leg[ICD10: M79.605] Diagnosis: Pain in right leg[ICD10: M79.604] Diagnosis: Sacrococcygeal disorders, not elsewhere classified[ICD10: M53.3] Cristal Chicas MD [facility] CPT-4: 21020 07/25/2018 ([id number]) 39537 EST. PATIENT, LEVEL III Diagnosis: Rash and other nonspecific skin eruption[ICD10: R21] Cristal Chicas MD [facility] CPT-4: 60417 05/08/2018 ([id number]) 45110 EST. PATIENT, LEVEL III Diagnosis: Corns and callosities[ICD10: L84] Diagnosis: Other specified polyneuropathies[ICD10: G62.89] Cristal Chicas MD [facility] CPT-4: 23378 04/10/2018 ([id number]) 11349 EST. PATIENT, LEVEL IV Diagnosis: Essential (primary) hypertension[ICD10: I10] Diagnosis: Rash and other nonspecific skin eruption[ICD10: R21] Diagnosis: Mixed hyperlipidemia[ICD10: E78.2] Cristal Chicas MD [facility] CPT-4: 43777 03/06/2018 ([id number]) 78534 EST. PATIENT, LEVEL IV Diagnosis: Essential (primary) hypertension[ICD10: I10] Diagnosis: Mixed hyperlipidemia[ICD10: E78.2] Diagnosis: Muscle weakness (generalized)[ICD10: M62.81] Cristal Chicas MD [facility] CPT-4: 90600 11/07/2017 ([id number]) 12126 EST. PATIENT, LEVEL IV Diagnosis: Essential (primary) hypertension[ICD10: I10] Diagnosis: Muscle weakness (generalized)[ICD10: M62.81] Diagnosis: Low back pain[ICD10: M54.5] Cristal Chicas MD [facility] CPT- 4: 45752 09/12/2017 ([id number]) OFFICE VISIT, NEW - LEVEL 4 Diagnosis: Essential (primary) hypertension[ICD10: I10] Diagnosis: Mixed hyperlipidemia[ICD10: E78.2] [facility] CPT-4: 14673 04/11/2017 Plan of Care Planned Activity Notes Codes Status Date Visit Plan: Cellulitis - with infected sebaceous [...] - discussed with pt keep appt with [facility] in [place] - pt needs his pacemaker/defibrillator replaced. Hypertension - well controlled - continue with current medications, continue with no added salt diet. Pt has been encouraged to exercise daily. The pt has been advised to call the office if there are any acute concerns about change in blood pressure readings at home. 09/04/2018 Appointment: Cristal Chicas WPtel: [facility] [place] [facility] [place] [facility] (15 min) Moderate 09/04/2018 Patient Education: Patient Medication Summary Completed 09/04/2018 Visit Plan: Lumbar spine pain - with radiculopathy - I have recommended that the patient be seen at [place] [facility] for back pain injections. 07/25/2018 Appointment: Cristal Chicas WPtel: [facility] [place] [facility] [place] [facility] (15 min) Moderate 07/25/2018 Patient Education: Patient Medication Summary Completed 07/25/2018 Patient Education: Back Pain Completed 07/25/2018 Care Plan: Referral Order SNOMED-CT : [id number] Pending 07/25/2018 [phone] [place], [place] [phone] Referral Initiated 06/17/2018 Care Plan: Referral Order SNOMED-CT : [id number] Pending 05/31/2018 Visit Plan: Medicare Exam - [...] care surrogate. 05/30/2018 Appointment[phone] [facility] [facility] - Annual Wellness Visit 05/30/2018 Patient Education: Patient Medication Summary Completed 05/30/2018 Care Plan: Comp Metabolic Pending 05/30/2018 Care Plan: Cbc With Differential Pending 05/30/2018 Care Plan: Tsh Pending 05/30/2018 Care Plan: Lipid Pending 05/30/2018 Care Plan: Total Psa Pending 05/30/2018 Visit Plan: Rash - improved - continue with steroid and antifungal cream. 05/08/2018 [facility] [phone] [facility] (15 min) Moderate 05/08/2018 Patient Education: [...] stump. 04/10/2018 Appointment: Cristal Chicas WPtel: [phone] [facility] (15 min) Moderate 04/10/2018 Patient Education: Patient [...] anti-fungal. 03/06/2018 Appointment: Cristal Chicas WPtel: [phone] [facility] (15 min) Moderate 03/06/2018 Patient Education: Patient [...] strength even more improved. 11/07/2017 Appointment: Cristal Chicas WPtel: [phone] [facility] [place] (15 min) Moderate 11/07/2017 Patient Education: Patient Medication Summary Completed 11/07/2017 Referral: [facility] WPtel: Patient informed by Cynthia. [...] physical therapy 09/12/2017 App[facility]: [facility] [phone] [facility] (15 min) Moderate 09/12/2017 Patient Education: Patient Medication Summary Completed 09/12/2017 Care Plan: Referral Order SNOMED-CT : [id number] Pending 09/12/2017 Visit Plan: Hypertension - well [...] daily. 04/11/2017 App[facility]ment: [facility] [phone] [facility] [facility] 04/11/2017 Patient Education: Patient Medication Summary Completed 04/11/2017 Care Plan: Comp Metabolic Cancelled 04/11/2017 Care Plan: Cbc With Differential Cancelled 04/11/2017 Care Plan: Tsh Cancelled 04/11/2017 Care Plan: Lipid Cancelled 04/11/2017 Care Plan: Total Psa Cancelled 04/11/2017 Referral: [facility] Referral Appointment Requested Referral: Mani Sam HPtel:[phone] [facility] Referral Initiated Referral: [facility] [...] the lower back and physical therapy . Lumbar spine pain - with radiculopathy - I have recommended that the patient be seen at [place] [facility] for back pain injections. [...] - discussed with pt keep appt with [facility] in [place] - pt needs his pacemaker/defibrillator replaced. Hypertension [...]
--- OUTSIDE RECORDS SUMMARY | 2018-09-23 11:05 | XMS REPORT | CCD ---
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 Unknown Has never used illegal drugs 04/11/2017 Allergies, Adverse Reactions, Alerts Substance Reaction Codes Entered Date Inactivated Date Status * NO KNOWN DRUG ALLERGIES Unknown 04/11/2017 No Inactive Date Active Past Medical History Illness Codes Condition Status Onset Date Resolved Date Low back pain ICD-9: 724.2 ICD-10: M54.5 Active 09/12/2017 Unknown Muscle weakness (generalized) ICD-9: 728.87 ICD-10: M62.81 Active 09/12/2017 Unknown Pain in left leg [...] ICD-9: 356.8 ICD-10: G62.89 Active 04/10/2018 Unknown Essential (primary) hypertension ICD-9: 401.1 ICD-10: I10 Active 04/11/2017 Unknown Mixed hyperlipidemia ICD-9: 272.2 ICD-10: E78.2 Active 04/11/2017 Unknown Problems Condition Codes Effective Dates Condition Status Low back pain ICD-9: 724.2 ICD-10: M54.5 09/12/2017 Active Muscle weakness (generalized) ICD-9: 728.87 ICD-10: M62.81 09/12/2017 Active Pain in left leg ICD-9 [...] polyneuropathies ICD-9: 356.8 ICD-10: G62.89 04/10/2018 Active Essential (primary) hypertension ICD-9: 401.1 ICD-10: I10 04/11/2017 Active Mixed hyperlipidemia ICD-9: 272.2 ICD-10: E78.2 04/11/2017 Active Medications Medication Codes Instructions Start Date Stop Date Status Fill Instructions metoprolol succinate ER 100 mg tablet,extended release 24 hr RxNorm: 841196 TAKE 1 TABLET BY MOUTH ONCE DAILY 09/02/2018 No Stop Date Active terbinafine HCl 250 mg tablet RxNorm: 675501 TAKE 1 TABLET BY MOUTH ONCE DAILY 08/27/2018 No Stop Date Active gabapentin 400 mg capsule RxNorm: 464532 1 Capsule(s) PO UD TAKE 1 CAPSULE BY MOUTH in morning, afternoon and two at bedtime 07/25/2018 No Stop Date Active gabapentin 400 mg capsule RxNorm: 328589 TAKE 1 CAPSULE BY MOUTH THREE TIMES DAILY 07/01/2018 07/24/2018 Inactive allopurinol 300 mg tablet RxNorm: 442223 TAKE 1 TABLET BY MOUTH ONCE DAILY 06/25/2018 No Stop Date Active clonazepam 0.5 mg tablet RxNorm: 468201 1 Tablet(s) PO QHS as needed 06/25/2018 09/22/2018 Active citalopram 10 mg tablet RxNorm: 673924 TAKE 1 TABLET BY MOUTH ONCE DAILY 06/19/2018 No Stop Date Active terbinafine HCl 250 mg tablet RxNorm: 713339 TAKE 1 TABLET BY MOUTH ONCE DAILY 05/20/2018 08/26/2018 Inactive atorvastatin 80 mg tablet RxNorm: 794286 1/2 Tablet(s) PO daily 05/08/2018 No Stop Date Active clobetasol 0.05 % topical cream RxNorm: 605245 2 Gram(s) TOP BID 05/08/2018 07/06/2018 Inactive clotrimazole 1 % topical cream RxNorm: 105799 2 Gram(s) TOP BID 05/08/2018 07/06/2018 Inactive allopurinol 300 mg tablet RxNorm: 989802 TAKE 1 TABLET BY MOUTH ONCE DAILY 05/06/2018 06/24/2018 Inactive terbinafine HCl 250 mg tablet RxNorm: 663745 1 Tablet(s) PO daily 04/23/2018 05/19/2018 Inactive gabapentin 400 mg capsule RxNorm: 040219 TAKE 1 CAPSULE BY MOUTH THREE TIMES DAILY 04/22/2018 06/30/2018 Inactive clotrimazole 1 % topical cream RxNorm: 937211 2 Gram(s) TOP BID 04/10/2018 04/23/2018 Inactive clobetasol 0.05 % topical cream RxNorm: 878705 2 Gram(s) TOP BID 04/10/2018 04/23/2018 Inactive clonazepam 0.5 mg tablet RxNorm: 077126 1 Tablet(s) PO QHS as needed 03/19/2018 06/15/2018 Inactive clobetasol 0.05 % topical cream RxNorm: 898269 2 Gram(s) TOP BID 03/06/2018 03/19/2018 Inactive clotrimazole 1 % topical cream RxNorm: 401009 2 Gram(s) TOP BID 03/06/2018 03/19/2018 Inactive metoprolol succinate ER 100 mg tablet,extended release 24 hr RxNorm: 154724 TAKE 1 TABLET BY MOUTH ONCE DAILY 02/25/2018 Inactive gabapentin 400 mg capsule RxNorm: 404198 TAKE 1 CAPSULE BY MOUTH THREE TIMES DAILY 02/21/2018 04/21/2018 Inactive citalopram 10 mg tablet RxNorm: 617106 1 Tablet(s) PO daily 06/201806/06/2018 Inactive allopurinol 300 mg tablet RxNorm: 142051 TAKE 1 TABLET BY MOUTH ONCE DAILY 01/28/2018 05/05/2018 Inactive clonazepam 0.5 mg tablet RxNorm: 824102 1 Tablet(s) PO QHS as needed 01/14/2018 03/12/2018 Inactive fluticasone 50 mcg/actuation nasal spray,suspension RxNorm: 5278211 USE ONE SPRAY( S) IN EACH NOSTRIL ONCE DAILY 12/20/2017 No Stop Date Active allopurinol 300 mg tablet RxNorm: 823540 TAKE ONE TABLET BY MOUTH ONCE DAILY 10/18/2017 01/27/2018 Inactive clonazepam 0.5 mg tablet RxNorm: 578494 1 Tablet(s) PO QHS as needed 10/11/2017 01/07/2018 Inactive gabapentin 400 mg capsule RxNorm: 405743 TAKE ONE CAPSULE BY MOUTH THREE TIMES DAILY 09/19/2017 02/20/2018 Inactive metoprolol succinate ER 100 mg tablet,extended release 24 hr RxNorm: 935234 TAKE ONE TABLET BY MOUTH ONCE DAILY 09/19/2017 02/24/2018 Inactive clonazepam 0.5 mg tablet RxNorm: 392791 1 Tablet(s) PO QHS as needed 08/14/2017 05/07/2018 Inactive fluticasone 50 mcg/actuation nasal spray,suspension RxNorm: 8340405 1 [place] NASAL daily 08/09/2017 12/19/2017 Inactive amoxicillin 500 mg capsule RxNorm: 361563 1 Capsule(s) PO TID 07/27/2017 08/02/2017 Inactive amoxicillin 500 mg capsule RxNorm: 576721 1 Capsule(s) PO TID 07/27/2017 07/26/2017 Inactive allopurinol 300 mg tablet RxNorm: 001019 1 Tablet(s) PO daily 06/27/2017 09/24/2017 Inactive Keflex 500 mg capsule RxNorm: 329394 1 Capsule(s) PO TID 201606/07/2017 Inactive Take probiotic TID while on ABT Keflex 500 mg capsule RxNorm: 206404 1 Capsule(s) PO TID 201606/14/2017 Inactive Take probiotic TID while on ABT clonazepam 0.5 mg tablet RxNorm: 122730 1 Tablet(s) PO QHS as needed 04/30/2017 05/07/2018 Inactive meloxicam 15 mg tablet RxNorm: 588474 1 Tablet(s) PO daily 09/11/2017 Inactive metoprolol succinate ER 100 mg tablet,extended release 24 hr RxNorm: 627968 1 Tablet(s) PO daily 04/16/2017 09/12/2017 Inactive gabapentin 400 mg capsule RxNorm: 648525 1 Capsule(s) PO TID 09/12/2017 Inactive Complete Multivitamin oral RxNorm: 03853 oral No Start Date Active lisinopril 2.5 mg tablet RxNorm: 542931 1 Tablet(s) PO daily No Start Date Active Aspirin Low Dose 81 mg tablet,delayed release RxNorm: 823333 2 Tablet(s) PO daily No Start Date Active furosemide 40 mg tablet RxNorm: 302809 1 Tablet(s) PO daily No Start Date Active spironolactone 25 mg tablet RxNorm: 940254 1 Tablet(s) PO daily No Start Date Active amiodarone 200 mg tablet RxNorm: 560740 1 Tablet(s) PO daily No Start Date Active Fish Oil capsule RxNorm: Capsule(s) PO No Start Date Active vitamin E 400 unit capsule RxNorm: 596518 1 Capsule(s) PO daily No Start Date Active citalopram 10 mg tablet RxNorm: 094038 1 Tablet(s) PO daily No Start Date 02/06/2018 Inactive lisinopril 10 mg tablet RxNorm: 065132 1 Tablet(s) PO daily No Start Date 05/07/2018 Inactive digoxin 125 mcg tablet RxNorm: 520722 1 Tablet(s) PO daily No Start Date 05/07/2018 Inactive Lamisil oral RxNorm: oral No Start Date Inactive atorvastatin 80 mg tablet RxNorm: 934325 1 Tablet(s) PO daily No Start Date 05/07/2018 Inactive gabapentin 400 mg capsule RxNorm: 521058 1 Capsule(s) PO TID No Start Date 04/15/2017 Inactive allopurinol 300 mg tablet RxNorm: 162385 1 Tablet(s) PO daily No Start Date 06/26/2017 Inactive metoprolol succinate ER 100 mg tablet,extended release 24 hr RxNorm: 895237 1 Tablet(s) PO daily No Start Date 2016 Inactive fluticasone 50 mcg/actuation nasal spray,suspension RxNorm: 7522285 [place] NASAL No Start Date 08/08/2017 Inactive Entresto 49 mg-51 mg tablet RxNorm: 8645095 2 Tablet(s) PO daily No Start Date 05/07/2018 Inactive clonazepam 0.5 mg tablet RxNorm: 272135 1 Tablet(s) PO QHS No Start Date 04/29/2017 Inactive meloxicam 15 mg tablet RxNorm: 578757 1 Tablet(s) PO daily No Start Date 04/15/2017 Inactive Medication Administered No Medication Administered data Immunizations Vaccine Codes Date Status Influenza CVX: 141 05/03/2018 completed Assessments Condition Codes Effective Dates Low back pain ICD-10: M54.5 ICD-9: 724.2 07/25/2018 Pain in left leg ICD-10: M79.605 ICD-9: 729.5 07/25/2018 Muscle weakness (generalized) ICD-10: M62.81 ICD-9: 728.87 07/25/2018 Sacrococcygeal disorders, not elsewhere classified ICD-10: M53.3 ICD-9: 724.6 07/25/2018 Pain in right leg ICD-10: M79.604 ICD-9: 729.5 07/25/2018 Encounter for general adult medical examination with abnormal findings ICD-10: Z00.01 ICD-9: V70.0 05/30/2018 Rash and other nonspecific skin eruption ICD-10: R21 ICD-9: 782.1 05/08/2018 Other specified polyneuropathies ICD-10: G62.89 ICD-9: 356.8 04/10/2018 Corns and callosities ICD-10: L84 ICD-9: 700 04/10/2018 Essential (primary) hypertension ICD-10: I10 ICD-9: 401.1 03/06/2018 Mixed hyperlipidemia ICD-10: E78.2 ICD-9: 272.2 03/06/2018 Reason For Visit Reason For Visit Effective Dates Notes knee pain 07/25/2018 Annual Medicare Wellness Exam 05/30/2018 paresthesia 05/08/2018 skin lesion 04/10/2018 paresthesia 03/06/2018 paresthesia 11/07/2017 paresthesia 09/12/2017 hypertension 04/11/2017 Results Observation Observation Code Item Item Code Result Date UA W/MICR 0580140 UA Protein 1+ 06/07/2017 UA W/MICR 0980665 UA Hemoglobin Negative 06/07/2017 UA W/MICR 2923893 UA Glucose Negative 06/07/2017 UA W/MICR 6456041 UA Ketones Negative 06/07/2017 UA W/MICR 9072901 UA pH 8.5 06/07/2017 UA W/MICR 2359973 U Spec [place] 1.011 06/07/2017 UA W/MICR 6771892 UA Bilirubin Negative 06/07/2017 UA W/MICR 4504486 UA Leuk Esteras 3+ 06/07/2017 UA W/MICR 2659014 UA Nitrite Positive 06/07/2017 UA W/MICR 3505160 UA WBC/hpf 1 06/07/2017 UA W/MICR 4700960 UA RBC hpf 0 06/07/2017 UA W/MICR 5414318 UA RBC auto 2.3 /uL 06/07/2017 UA W/MICR 6970621 UA WBC auto 3.1 /uL 06/07/2017 UA W/MICR 9907228 UA SQ EPI auto 1.4 /uL 06/07/2017 UA W/MICR 0372952 UA H Cast auto 0.10 /uL 06/07/2017 PROT CR RU [id number] U Protein 23 mg/dL 06/07/2017 PROT CR RU [id number] U Creatinine 59 mg/dL 06/07/2017 PROT CR RU [id number] Prot:Creat Rat 390 mg/g 06/07/2017 GFR CALC 3090424 GFR Non Afr Amr 44 mL/min 06/06/2017 GFR CALC 2344659 GFR Afr Amr 53 mL/min 06/06/2017 CBC 0259502 WBC 6.0 10e9/L 06/06/2017 CBC 3041350 RBC 4.54 10e12/L 06/06/2017 CBC 2680175 HEMOGLOBIN 15.1 g/dL 06/06/2017 CBC 5377377 HEMATOCRIT 45.6 % 06/06/2017 CBC 6131300 MCV 100.4 fL 06/06/2017 CBC 0850539 MCH 33.3 pg 06/06/2017 CBC 9301341 MCHC 33.1 g/dL 06/06/2017 CBC 2554751 PLATELET COUNT 109 10e9/L 06/06/2017 CBC 6074306 Mean Plt Volume 12.5 fL 06/06/2017 CBC 5648694 Neut Auto 61.4 % 06/06/2017 CBC 5896745 Lymph Auto 24.1 % 06/06/2017 CBC 6552248 [place] Auto 10.9 % 06/06/2017 CBC 4384521 Eos Auto 3.3 % 06/06/2017 CBC 9780171 RDW 15.0 % 06/06/2017 CBC 4202634 Baso Auto 0.3 % 06/06/2017 CBC 8051726 Neutrophil Abs 3.68 10e9/L 06/06/2017 CBC 5505918 Lymphocyte Abs 1.45 10e9/L 06/06/2017 CBC 2443136 Monocyte Abs 0.65 10e9/L 06/06/2017 CBC 5818303 Eosinophil Abs 0.20 10e9/L 06/06/2017 CBC 2925882 Basophil Abs 0.02 10e9/L 06/06/2017 CBC 8655143 RDW-SD 53.7 fL 06/06/2017 RENAL TN 20271222 BUN 24 mg/dL 06/06/2017 RENAL TN 20271222 CREATININE 1.57 mg/dL 06/06/2017 RENAL TN 20271222 PHOSPHORUS 3.2 mg/dL 06/06/2017 RENAL TN 20271222 CALCIUM 9.9 mg/dL 06/06/2017 RENAL TN 20271222 POTASSIUM 4.8 mmol/L 06/06/2017 RENAL TN 0496637 SODIUM 137 mmol/L 06/06/2017 RENAL TN 2270081 ALBUMIN 4.3 g/dL 06/06/2017 RENAL TN 0773546 CHLORIDE 106 mmol/L 06/06/2017 RENAL TN 7173149 Bicarbonate 26 mmol/L 06/06/2017 RENAL TN 6477338 GLUCOSE 111 mg/dL 06/06/2017 LIPID GRP CHOLESTEROL 97 mg/dL 04/11/2017 LIPID GRP Triglyceride 204 mg/dL 04/11/2017 LIPID GRP HDL CHOLESTEROL 28 mg/dL 04/11/2017 LIPID GRP Chol/HDL Ratio 3.46 ratio 04/11/2017 LIPID GRP NON-HDL Chol 69 mg/dL 04/11/2017 LIPID GRP LDL Cholesterol 28 mg/dL 04/11/2017 CBC 3447400 WBC 7.0 10e9/L 04/11/2017 CBC 2313970 RBC 4.48 10e12/L 04/11/2017 CBC 6561794 HEMOGLOBIN 14.9 g/dL 04/11/2017 CBC 6288048 HEMATOCRIT 45.0 % 04/11/2017 CBC 3012204 MCV 100.4 fL 04/11/2017 CBC 9856309 MCH 33.3 pg 04/11/2017 CBC 9897981 MCHC 33.1 g/dL 04/11/2017 CBC 2686043 PLATELET COUNT 116 10e9/L 04/11/2017 CBC 4848395 Mean Plt Volume 12.8 fL 04/11/2017 CBC 8315418 Neut Auto 64.0 % 04/11/2017 CBC 5204208 Lymph Auto 19.8 % 04/11/2017 CBC 7267888 [place] Auto 13.2 % 04/11/2017 CBC 0146929 RDW 14.9 % 04/11/2017 CBC 2434120 Eos Auto 2.7 % 04/11/2017 CBC 7819290 Baso Auto 0.3 % 04/11/2017 CBC 9973160 Neutrophil Abs 4.48 10e9/L 04/11/2017 CBC 4052420 Lymphocyte Abs 1.39 10e9/L 04/11/2017 CBC 2133993 Monocyte Abs 0.92 10e9/L 04/11/2017 CBC 9196713 Eosinophil Abs 0.19 10e9/L 04/11/2017 CBC 8865370 RDW-SD 53.5 fL 04/11/2017 CBC 2349030 Basophil Abs 0.02 10e9/L 04/11/2017 GFR CALC 2473826 GFR Non Afr Amr 38 mL/min 04/11/2017 GFR CALC 7406696 GFR Afr Amr 46 mL/min 04/11/2017 TSH 9329900 TSH 2.445 uIU/mL 04/11/2017 PSA EQ 20110923 PSA Total 0.54 ng/mL 04/11/2017 CHEM 14 2861680 AST 26 U/L 04/11/2017 CHEM 14 9557618 ALT 22 U/L 04/11/2017 CHEM 14 2262754 BUN 36 mg/dL 04/11/2017 CHEM 14 5201658 ALBUMIN 4.5 g/dL 04/11/2017 CHEM 14 8740337 CHLORIDE 101 mmol/L 04/11/2017 CHEM 14 4036972 Bili Total 1.1 mg/dL 04/11/2017 CHEM 14 3035512 ALK PHOS 82 U/L 04/11/2017 CHEM 14 5955519 SODIUM 139 mmol/L 04/11/2017 CHEM 14 2262486 CREATININE 1.76 mg/dL 04/11/2017 CHEM 14 6777592 CALCIUM 10.2 mg/dL 04/11/2017 CHEM 14 4477195 POTASSIUM 4.6 mmol/L 04/11/2017 CHEM 14 7971355 TOTAL PROTEIN 7.3 g/dL 04/11/2017 CHEM 14 9824571 GLUCOSE 92 mg/dL 04/11/2017 CHEM 14 8117513 Bicarbonate 32 mmol/L 04/11/2017 CHEM 14 7523464 AGAP 6 mmol/L 04/11/2017 Review of Systems System Result Effective Dates Constitutional recent illness 07/25/2018 Constitutional No chills [...] 2+ being normal): Left and right biceps: 09/0211/07/2017 None Full Exam - General 1994 Neurologic deep tendon reflexes (graded 0-4+ with 2+ being normal): Left and right patella: 09/0211/07/2017 None Full Exam - General 1994 Neurologic deep tendon reflexes (graded 0-4+ with 2+ being normal): Left and right Achilles: 09/0211/07/2017 None Full Exam - General 1994 [...] over anterior knee Full Exam - General 1995 Integument inspection of skin Location: left leg 04/11/2017 scar over anterior knee Procedures Procedure Codes Date PPPS, SUBSEQ VISIT CPT -4: G0439 05/30/2018 Vital Signs Date Vital 07/25/2018 Blood Pressure 1: 118/70 Code : 8480-6 Heart Rate 1: 72 bpm Height: SpO2: 94% Weight: 05/30/2018 Blood Pressure 1: 120/62 Code : 8480-6 BMI: 33.6 Code : 18509-7 Heart Rate 1 : 85 bpm Height: 6'3" SpO2: 96% Weight: 269 lbs 05/08/2018 Blood Pressure 1: 108/68 Code : 8480-6 BMI: 33.9 Code : 12688-2 Heart Rate 1 : 87 bpm Height: 6'3" SpO2: 98% Weight: 271 lbs 04/10/2018 Blood Pressure 1: 100/64 Code : 8480-6 BMI: 33.5 Code : 94066-2 Heart Rate 1 : 86 bpm Height: 6'3" SpO2: 95% Weight: 268 lbs 03/06/2018 Blood Pressure 1: 106/70 Code : 8480-6 BMI: 34.5 Code : 60868-2 Heart Rate 1 : 87 bpm Height: 6'3" SpO2: 97% Weight: 276 lbs 11/07/2017 Blood Pressure 1: 92/56 Code : 8480-6 BMI: 33.2 Code : 93159-9 Heart Rate 1 : 46 bpm Height: 6'3" SpO2: 98% Weight: 266 lbs 09/12/2017 Blood Pressure 1: 110/60 Code : 8480-6 BMI: 32.6 Code : 53481-4 Heart Rate 1 : 89 bpm Height: 6'3" SpO2: 97% Weight: 261 lbs 04/11/2017 Blood Pressure 1: 118/64 Code : 8480-6 BMI: 33.5 Code : 29653-4 Heart Rate 1 : 82 bpm Height: 6'3" SpO2: 96% Weight: 268 lbs Functional Status No Functional Status data History of Present Illness Symptom Name Status Result Effective Date Notes Location on the right 07/25/2018 None Quality [...] data Encounters Encounter Performer Location Codes Date ([id number]) [id number] EST. PATIENT, LEVEL III Diagnosis: Low back pain[ICD10: M54.5] Diagnosis: Muscle weakness (generalized)[ICD10: M62.81] Diagnosis: Pain in left leg[ICD10: M79.605] Diagnosis: Pain in right leg[ICD10: M79.604] Diagnosis: Sacrococcygeal disorders, not elsewhere classified[ICD10: M53.3] [facility] CPT-4: 34440 07/25/2018 [id number]) 39231 EST. PATIENT, LEVEL III Diagnosis: Rash and other nonspecific skin eruption[ICD10: R21] [facility] CPT-4: 15144 05/08/2018 [id number]) 83311 EST. PATIENT, LEVEL III Diagnosis: Corns and callosities[ICD10: L84] Diagnosis: Other specified polyneuropathies[ICD10: G62.89] Cristal Chicas MD, [facility] CPT-4: 02837 04/10/2018 ([id number]) 22915 EST. PATIENT, LEVEL IV Diagnosis: Essential (primary) hypertension[ICD10: I10] Diagnosis: Rash and other nonspecific skin eruption[ICD10: R21] Diagnosis: Mixed hyperlipidemia[ICD10: E78.2] Cristal Chicas MD, [facility] CPT-4: 35413 03/06/2018 ([id number]) 52157 EST. PATIENT, LEVEL IV Diagnosis: Essential (primary) hypertension[ICD10: I10] Diagnosis: Mixed hyperlipidemia[ICD10: E78.2] Diagnosis: Muscle weakness (generalized)[ICD10: M62.81] Cristal Chicas MD [facility] CPT-4: 87529 11/07/2017 ([id number]) 83983 EST. PATIENT, LEVEL IV Diagnosis: Essential (primary) hypertension[ICD10: I10] Diagnosis: Muscle weakness (generalized)[ICD10: M62.81] Diagnosis: Low back pain[ICD10: M54.5] Cristal Chicas MD, [facility] CPT- 4: 98721 09/12/2017 ([id number]) OFFICE VISIT, NEW - LEVEL 4 Diagnosis: Essential (primary) hypertension[ICD10: I10] Diagnosis: Mixed hyperlipidemia[ICD10: E78.2] Cristal Chicas MD, [facility] CPT-4: 05894 04/11/2017 Plan of Care Planned Activity Notes Codes Status Date Visit Plan: Lumbar spine pain - with radiculopathy - I have recommended that the patient be seen at [place] [facility] for back pain injections. 07/25/2018 Appointment: Cristal Chicas WPtel: [address] [place], [place] [address] (15 min) Moderate 07/25/2018 Patient Education: Patient Medication Summary Completed 07/25/2018 Patient Education: Back Pain Completed 07/25/2018 Care Plan: Referral Order SNOMED-CT : [id number] Pending 07/25/2018 [facility]erral: Man[facility] HPtel:[phone] [facility] Referral Initiated 06/17/2018 Care Plan: Referral Order SNOMED-CT : [id number] Pending 05/31/2018 Visit Plan: Medicare Exam - [...] care surrogate. 05/30/2018 Appointment: Karly Duong WPtel: [address] [place], [place] [id number] [facility] - Annual Wellness Visit 05/30/2018 Patient Education: Patient Medication Summary Completed 05/30/2018 Care Plan: Comp Metabolic Pending 05/30/2018 Care Plan: Cbc With Differential Pending 05/30/2018 Care Plan: Tsh Pending 05/30/2018 Care Plan: Lipid Pending 05/30/2018 Care Plan: Total Psa Pending 05/30/2018 Visit Plan: Rash - improved - continue with steroid and antifungal cream. 05/08/2018 Appointment: Cristal Chicas WPtel: [phone] [facility] (15 min) Moderate 05/08/2018 Patient Education: Patient [...] the stump. 04/10/2018 Appointment: Cristal Chicas WPtel: [phone] [facility] (15 min) Moderate 04/10/2018 Patient Education: Patient [...] and anti-fungal. 03/06/2018 Appointment: Cristal Chicas WPtel: [phone] [facility] (15 min) Moderate 03/06/2018 Patient Education: [...] improved. 11/07/2017 Appointment: Cristal Chicas WPtel: [phone] [facility] (15 min) Moderate 11/07/2017 Patient Education: Patient [...] therapy 09/12/2017 [facility] [phone] [facility] ([facility] min) Moderate 09/12/2017 Patient Education: Patient Medication Summary Completed 09/12/2017 Care Plan: Referral Order SNOMED-CT : [id number] Pending 09/12/2017 Visit Plan: Hypertension - well [...] mg daily. 04/11/2017 Appointment: Cristal Chicas WPtel: [address] [place], [place] [phone] New Patient 04/11/2017 Patient Education: Patient Medication Summary Completed 04/11/2017 Care Plan: Comp Metabolic Cancelled 04/11/2017 Care Plan: Cbc With Differential Cancelled 04/11/2017 Care Plan: Tsh Cancelled 04/11/2017 Care Plan: Lipid Cancelled 04/11/2017 Care Plan: Total Psa Cancelled 04/11/2017 Referral: [facility] Referral Appointment Requested Referral: Mani Thomas HPtel:[phone] [facility] Referral Initiated Referral: [facility] [...] recommended that the patient be seen at [place] [facility] for back pain injections. . Rash - improved - continue with [...]
--- OUTSIDE RECORDS SUMMARY | 2018-09-23 11:06 | XMS REPORT | CCD ---
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[email or web address] - 04/11/[address]: 9047690 Former smoker 04/11/[address]: [id number] Never drinks alcohol 04/11/2017 Has the patient [...] Start Date Stop Date Status Fill Instructions terbinafine HCl 250 mg tablet RxNorm: 961002 TAKE 1 TABLET BY MOUTH ONCE DAILY 08/27/2018 No Stop Date Active gabapentin 400 mg capsule RxNorm: 711364 1 Capsule(s) PO UD TAKE 1 CAPSULE BY MOUTH in morning, afternoon and two at bedtime 07/25/2018 No Stop Date Active gabapentin 400 mg capsule RxNorm: 291445 TAKE 1 CAPSULE BY MOUTH THREE TIMES DAILY 07/01/2018 07/24/2018 Inactive allopurinol 300 mg tablet RxNorm: 946380 TAKE 1 TABLET BY MOUTH ONCE DAILY 06/25/2018 No Stop Date Active clonazepam 0.5 mg tablet RxNorm: 526650 1 Tablet(s) PO QHS as needed 06/25/2018 09/22/2018 Active citalopram 10 mg tablet RxNorm: 986025 TAKE 1 TABLET BY MOUTH ONCE DAILY 06/19/2018 No Stop Date Active terbinafine HCl 250 mg tablet RxNorm: 556636 TAKE 1 TABLET BY MOUTH ONCE DAILY 05/20/2018 08/26/2018 Inactive atorvastatin 80 mg tablet RxNorm: 275174 1/2 Tablet(s) PO daily 05/08/2018 No Stop Date Active clobetasol 0.05 % topical cream RxNorm: 543840 2 Gram(s) TOP BID 05/08/2018 07/06/2018 Inactive clotrimazole 1 % topical cream RxNorm: 649574 2 Gram(s) TOP BID 05/08/2018 07/06/2018 Inactive allopurinol 300 mg tablet RxNorm: 439798 TAKE 1 TABLET BY MOUTH ONCE DAILY 05/06/2018 06/24/2018 Inactive terbinafine HCl 250 mg tablet RxNorm: 469198 1 Tablet(s) PO daily 04/23/2018 05/19/2018 Inactive gabapentin 400 mg capsule RxNorm: 461098 TAKE 1 CAPSULE BY MOUTH THREE TIMES DAILY 04/22/2018 06/30/2018 Inactive clotrimazole 1 % topical cream RxNorm: 220755 2 Gram(s) TOP BID 04/10/2018 04/23/2018 Inactive clobetasol 0.05 % topical cream RxNorm: 979143 2 Gram(s) TOP BID 04/10/2018 04/23/2018 Inactive clonazepam 0.5 mg tablet RxNorm: 413591 1 Tablet(s) PO QHS as needed 03/19/2018 06/15/2018 Inactive clobetasol 0.05 % topical cream RxNorm: 136083 2 Gram(s) TOP BID 03/06/2018 03/19/2018 Inactive clotrimazole 1 % topical cream RxNorm: 059432 2 Gram(s) TOP BID 03/06/2018 03/19/2018 Inactive metoprolol succinate ER 100 mg tablet,extended release 24 hr RxNorm: 179221 TAKE 1 TABLET BY MOUTH ONCE DAILY 02/25/2018 No Stop Date Active gabapentin 400 mg capsule RxNorm: 631297 TAKE 1 CAPSULE BY MOUTH THREE TIMES DAILY 02/21/2018 04/21/2018 Inactive citalopram 10 mg tablet RxNorm: 565491 1 Tablet(s) PO daily 06/201806/06/2018 Inactive allopurinol 300 mg tablet RxNorm: 962487 TAKE 1 TABLET BY MOUTH ONCE DAILY 01/28/2018 05/05/2018 Inactive clonazepam 0.5 mg tablet RxNorm: 300014 1 Tablet(s) PO QHS as needed 01/14/2018 03/12/2018 Inactive fluticasone 50 mcg/actuation nasal spray,suspension RxNorm: 9026443 USE ONE SPRAY( S) IN EACH NOSTRIL ONCE DAILY 12/20/2017 No Stop Date Active allopurinol 300 mg tablet RxNorm: 125283 TAKE ONE TABLET BY MOUTH ONCE DAILY 10/18/2017 01/27/2018 Inactive clonazepam 0.5 mg tablet RxNorm: 142874 1 Tablet(s) PO QHS as needed 10/11/2017 01/07/2018 Inactive gabapentin 400 mg capsule RxNorm: 000008 TAKE ONE CAPSULE BY MOUTH THREE TIMES DAILY 09/19/2017 02/20/2018 Inactive metoprolol succinate ER 100 mg tablet,extended release 24 hr RxNorm: 008119 TAKE ONE TABLET BY MOUTH ONCE DAILY 09/19/2017 02/24/2018 Inactive clonazepam 0.5 mg tablet RxNorm: 264093 1 Tablet(s) PO QHS as needed 08/14/2017 05/07/2018 Inactive fluticasone 50 mcg/actuation nasal spray,suspension RxNorm: 1658152 1 [place] NASAL daily 08/09/2017 12/19/2017 Inactive amoxicillin 500 mg capsule RxNorm: 825789 1 Capsule(s) PO TID 07/27/2017 08/02/2017 Inactive amoxicillin 500 mg capsule RxNorm: 927321 1 Capsule(s) PO TID 07/27/2017 07/26/2017 Inactive allopurinol 300 mg tablet RxNorm: 273544 1 Tablet(s) PO daily 06/27/2017 09/24/2017 Inactive Keflex 500 mg capsule RxNorm: 712368 1 Capsule(s) PO TID 201606/07/2017 Inactive Take probiotic TID while on ABT Keflex 500 mg capsule RxNorm: 306809 1 Capsule(s) PO TID 201606/14/2017 Inactive Take probiotic TID while on ABT clonazepam 0.5 mg tablet RxNorm: 909707 1 Tablet(s) PO QHS as needed 04/30/2017 05/07/2018 Inactive meloxicam 15 mg tablet RxNorm: 769851 1 Tablet(s) PO daily 09/11/2017 Inactive metoprolol succinate ER 100 mg tablet,extended release 24 hr RxNorm: 820292 1 Tablet(s) PO daily 04/16/2017 09/12/2017 Inactive gabapentin 400 mg capsule RxNorm: 147558 1 Capsule(s) PO TID 09/12/2017 Inactive Complete Multivitamin oral RxNorm: 82274 oral No Start Date Active lisinopril 2.5 mg tablet RxNorm: 447007 1 Tablet(s) PO daily No Start Date Active Aspirin Low Dose 81 mg tablet,delayed release RxNorm: 905096 2 Tablet(s) PO daily No Start Date Active furosemide 40 mg tablet RxNorm: 794460 1 Tablet(s) PO daily No Start Date Active spironolactone 25 mg tablet RxNorm: 353669 1 Tablet(s) PO daily No Start Date Active amiodarone 200 mg tablet RxNorm: 940401 1 Tablet(s) PO daily No Start Date Active Fish Oil capsule RxNorm: Capsule(s) PO No Start Date Active vitamin E 400 unit capsule RxNorm: 789693 1 Capsule(s) PO daily No Start Date Active citalopram 10 mg tablet RxNorm: 792501 1 Tablet(s) PO daily No Start Date 02/06/2018 Inactive lisinopril 10 mg tablet RxNorm: 534094 1 Tablet(s) PO daily No Start Date 05/07/2018 Inactive digoxin 125 mcg tablet RxNorm: 470975 1 Tablet(s) PO daily No Start Date 05/07/2018 Inactive Lamisil oral RxNorm: oral No Start Date Inactive atorvastatin 80 mg tablet RxNorm: 359375 1 Tablet(s) PO daily No Start Date 05/07/2018 Inactive gabapentin 400 mg capsule RxNorm: 300015 1 Capsule(s) PO TID No Start Date 04/15/2017 Inactive allopurinol 300 mg tablet RxNorm: 964433 1 Tablet(s) PO daily No Start Date 06/26/2017 Inactive metoprolol succinate ER 100 mg tablet,extended release 24 hr RxNorm: 362197 1 Tablet(s) PO daily No Start Date 2016 Inactive fluticasone 50 mcg/actuation nasal spray,suspension RxNorm: 5289523 [place] NASAL No Start Date 08/08/2017 Inactive Entresto 49 mg-51 mg tablet RxNorm: 2962741 2 Tablet(s) PO daily No Start Date 05/07/2018 Inactive clonazepam 0.5 mg tablet RxNorm: 210253 1 Tablet(s) PO QHS No Start Date 04/29/2017 Inactive meloxicam 15 mg tablet RxNorm: 518255 1 Tablet(s) PO daily No Start Date 04/15/2017 Inactive Medication Administered No Medication Administered data Immunizations Vaccine Codes Date Status Influenza CVX: 141 05/03/2018 completed Assessments Condition Codes Effective Dates Pain in right leg ICD-10: M79.604 ICD-9: 729.5 07/25/2018 Sacrococcygeal disorders, not elsewhere classified ICD-10: M53.3 ICD-9: 724.6 07/25/2018 Muscle weakness (generalized) ICD-10: M62.81 ICD-9: 728.87 07/25/2018 Pain in left leg ICD-10: M79.605 ICD-9: 729.5 07/25/2018 Low back pain ICD-10: M54.5 ICD-9: 724.2 07/25/2018 Encounter for general adult medical examination with abnormal findings ICD-10: Z00.01 ICD-9: V70.0 05/30/2018 Rash and other nonspecific skin eruption ICD-10: R21 ICD-9: 782.1 05/08/2018 Other specified polyneuropathies ICD-10: G62.89 ICD-9: 356.8 04/10/2018 Corns and callosities ICD-10: L84 ICD-9: 700 04/10/2018 Mixed hyperlipidemia ICD-10: E78.2 ICD-9: 272.2 03/06/2018 Essential (primary) hypertension ICD-10: I10 ICD-9: 401.1 03/06/2018 Reason For Visit Reason For Visit Effective Dates Notes knee pain 07/25/2018 Annual Medicare Wellness Exam 05/30/2018 paresthesia 05/08/2018 skin lesion 04/10/2018 paresthesia 03/06/2018 paresthesia 11/07/2017 paresthesia 09/12/2017 hypertension 04/11/2017 Results Observation Observation Code Item Item Code Result Date PROT CR RU [id number] U Protein 23 mg/dL 06/07/2017 PROT CR RU [id number] U Creatinine 59 mg/dL 06/07/2017 PROT CR RU [id number] Prot:Creat Rat 390 mg/g 06/07/2017 UA W/MICR 4573290 UA Protein 1+ 06/07/2017 UA W/MICR 5751341 UA Hemoglobin Negative 06/07/2017 UA W/MICR 4237172 UA Glucose Negative 06/07/2017 UA W/MICR 3876237 UA Ketones Negative 06/07/2017 UA W/MICR 9312542 UA pH 8.5 06/07/2017 UA W/MICR 5320545 U Spec [place] 1.011 06/07/2017 UA W/MICR 8751738 UA Bilirubin Negative 06/07/2017 UA W/MICR 3687158 UA Leuk Esteras 3+ 06/07/2017 UA W/MICR 5237698 UA Nitrite Positive 06/07/2017 UA W/MICR 1337933 UA WBC/hpf 1 06/07/2017 UA W/MICR 4267112 UA RBC hpf 0 06/07/2017 UA W/MICR 9386991 UA RBC auto 2.3 /uL 06/07/2017 UA W/MICR 0882266 UA WBC auto 3.1 /uL 06/07/2017 UA W/MICR 6213302 UA SQ EPI auto 1.4 /uL 06/07/2017 UA W/MICR 6433703 UA H Cast auto 0.10 /uL 06/07/2017 GFR CALC 7452069 GFR Non Afr Amr 44 mL/min 06/06/2017 GFR CALC 9498695 GFR Afr Amr 53 mL/min 06/06/2017 CBC 2020714 WBC 6.0 10e9/L 06/06/2017 CBC 9552751 RBC 4.54 10e12/L 06/06/2017 CBC 9354969 HEMOGLOBIN 15.1 g/dL 06/06/2017 CBC 7268859 HEMATOCRIT 45.6 % 06/06/2017 CBC 1834104 MCV 100.4 fL 06/06/2017 CBC 9802320 MCH 33.3 pg 06/06/2017 CBC 1034214 MCHC 33.1 g/dL 06/06/2017 CBC 1262391 PLATELET COUNT 109 10e9/L 06/06/2017 CBC 1639231 Mean Plt Volume 12.5 fL 06/06/2017 CBC 5664144 Neut Auto 61.4 % 06/06/2017 CBC 1271076 Lymph Auto 24.1 % 06/06/2017 CBC 3234916 [place] Auto 10.9 % 06/06/2017 CBC 2171019 Eos Auto 3.3 % 06/06/2017 CBC 3510218 RDW 15.0 % 06/06/2017 CBC 5695688 Baso Auto 0.3 % 06/06/2017 CBC 1063184 Neutrophil Abs 3.68 10e9/L 06/06/2017 CBC 1295921 Lymphocyte Abs 1.45 10e9/L 06/06/2017 CBC 6406643 Monocyte Abs 0.65 10e9/L 06/06/2017 CBC 9977368 Eosinophil Abs 0.20 10e9/L 06/06/2017 CBC 5410945 Basophil Abs 0.02 10e9/L 06/06/2017 CBC 5204802 RDW-SD 53.7 fL 06/06/2017 RENAL NH 20271222 BUN 24 mg/dL 06/06/2017 RENAL NH 20271222 CREATININE 1.57 mg/dL 06/06/2017 RENAL [place] 20271222 PHOSPHORUS 3.2 mg/dL 06/06/2017 RENAL [place] 20271222 CALCIUM 9.9 mg/dL 06/06/2017 RENAL NH 20271222 POTASSIUM 4.8 mmol/L 06/06/2017 RENAL NH 20271222 SODIUM 137 mmol/L 06/06/2017 RENAL NH 20271222 ALBUMIN 4.3 g/dL 06/06/2017 RENAL NH 3402794 CHLORIDE 106 mmol/L 06/06/2017 RENAL NH 1374486 Bicarbonate 26 mmol/L 06/06/2017 RENAL [place] 9634112 GLUCOSE 111 mg/dL 06/06/2017 GFR CALC 5186344 GFR Non Afr Amr 38 mL/min 04/11/2017 GFR CALC 5835392 GFR Afr Amr 46 mL/min 04/11/2017 CBC 9691880 WBC 7.0 10e9/L 04/11/2017 CBC 8383165 RBC 4.48 10e12/L 04/11/2017 CBC 8252777 HEMOGLOBIN 14.9 g/dL 04/11/2017 CBC 7839885 HEMATOCRIT 45.0 % 04/11/2017 CBC 9767897 MCV 100.4 fL 04/11/2017 CBC 3780026 MCH 33.3 pg 04/11/2017 CBC 0602129 MCHC 33.1 g/dL 04/11/2017 CBC 8668840 PLATELET COUNT 116 10e9/L 04/11/2017 CBC 9298910 Mean Plt Volume 12.8 fL 04/11/2017 CBC 0941848 Neut Auto 64.0 % 04/11/2017 CBC 2009128 Lymph Auto 19.8 % 04/11/2017 CBC 7106094 [place] Auto 13.2 % 04/11/2017 CBC 8305062 RDW 14.9 % 04/11/2017 CBC 6769934 Eos Auto 2.7 % 04/11/2017 CBC 7870865 Baso Auto 0.3 % 04/11/2017 CBC 9855307 Neutrophil Abs 4.48 10e9/L 04/11/2017 CBC 0900632 Lymphocyte Abs 1.39 10e9/L 04/11/2017 CBC 8816628 Monocyte Abs 0.92 10e9/L 04/11/2017 CBC 7215289 Eosinophil Abs 0.19 10e9/L 04/11/2017 CBC 4255292 Basophil Abs 0.02 10e9/L 04/11/2017 CBC 5456066 RDW-SD 53.5 fL 04/11/2017 LIPID GRP CHOLESTEROL 97 mg/dL 04/11/2017 LIPID GRP Triglyceride 204 mg/dL 04/11/2017 LIPID GRP HDL CHOLESTEROL 28 mg/dL 04/11/2017 LIPID GRP Chol/HDL Ratio 3.46 ratio 04/11/2017 LIPID GRP NON-HDL Chol 69 mg/dL 04/11/2017 LIPID GRP LDL Cholesterol 28 mg/dL 04/11/2017 TSH 5815028 TSH 2.445 uIU/mL 04/11/2017 PSA EQ 20110923 PSA Total 0.54 ng/mL 04/11/2017 CHEM 14 1555427 AST 26 U/L 04/11/2017 CHEM 14 7456799 ALT 22 U/L 04/11/2017 CHEM 14 6745892 BUN 36 mg/dL 04/11/2017 CHEM 14 8638703 ALBUMIN 4.5 g/dL 04/11/2017 CHEM 14 7180179 CHLORIDE 101 mmol/L 04/11/2017 CHEM 14 3435233 Bili Total 1.1 mg/dL 04/11/2017 CHEM 14 4227917 ALK PHOS 82 U/L 04/11/2017 CHEM 14 8848686 SODIUM 139 mmol/L 04/11/2017 CHEM 14 2957134 CREATININE 1.76 mg/dL 04/11/2017 CHEM 14 7826674 CALCIUM 10.2 mg/dL 04/11/2017 CHEM 14 2871492 POTASSIUM 4.6 mmol/L 04/11/2017 CHEM 14 4088289 TOTAL PROTEIN 7.3 g/dL 04/11/2017 CHEM 14 1582876 GLUCOSE 92 mg/dL 04/11/2017 CHEM 14 0395166 Bicarbonate 32 mmol/L 04/11/2017 CHEM 14 0477945 AGAP 6 mmol/L 04/11/2017 Review of Systems [...] Code : 8480-6 BMI: 33.6 Code : 95055-6 Heart Rate 1 : 85 bpm Height: 6'3" SpO2: 96% Weight: 269 lbs 05/08/2018 Blood Pressure 1: 108/68 Code : 8480-6 BMI: 33.9 Code : 09841-0 Heart Rate 1 : 87 bpm Height: 6'3" SpO2: 98% Weight: 271 lbs 04/10/2018 Blood Pressure 1: 100/64 Code : 8480-6 BMI: 33.5 Code : 05232-2 Heart Rate 1 : 86 bpm Height: 6'3" SpO2: 95% Weight: 268 lbs 03/06/2018 Blood Pressure 1: 106/70 Code : 8480-6 BMI: 34.5 Code : 23888-9 Heart Rate 1 : 87 bpm Height: 6'3" SpO2: 97% Weight: 276 lbs 11/07/2017 Blood Pressure 1: 92/56 Code : 8480-6 BMI: 33.2 Code : 33080-6 Heart Rate 1 : 46 bpm Height: 6'3" SpO2: 98% Weight: 266 lbs 09/12/2017 Blood Pressure 1: 110/60 Code : 8480-6 BMI: 32.6 Code : 14230-2 Heart Rate 1 : 89 bpm Height: 6'3" SpO2: 97% Weight: 261 lbs 04/11/2017 Blood Pressure 1: 118/64 Code : 8480-6 BMI: 33.5 Code : 94288-6 Heart Rate 1 : 82 bpm Height: [...] data Encounters Encounter Performer Location Codes Date EST. PATIENT, LEVEL III Diagnosis: Low back pain[ICD10: M54.5] Diagnosis: Muscle weakness (generalized)[ICD10: M62.81] Diagnosis: Pain in left leg[ICD10: M79.605] Diagnosis: Pain in right leg[ICD10: M79.604] Diagnosis: Sacrococcygeal disorders, not elsewhere classified[ICD10: M53.3] [facility] CPT-4: 24895 07/25/2018 ([id number]) 94411 EST. PATIENT, LEVEL III Diagnosis: Rash and other nonspecific skin eruption[ICD10: R21] Cristal Chicas MD, [facility] CPT-4: 84096 05/08/2018 [id number] EST. PATIENT, LEVEL III Diagnosis: Corns and callosities[ICD10: L84] Diagnosis: Other specified polyneuropathies[ICD10: G62.89] [facility] CPT-4: 35132 04/10/2018 ([id number]) 41236 EST. PATIENT, LEVEL IV Diagnosis: Essential (primary) hypertension[ICD10: I10] Diagnosis: Rash and other nonspecific skin eruption[ICD10: R21] Diagnosis: Mixed hyperlipidemia[ICD10: E78.2] [facility] CPT-4: 29723 03/06/2018 ([id number]) 12575 EST. PATIENT, LEVEL IV Diagnosis: Essential (primary) hypertension[ICD10: I10] Diagnosis: Mixed hyperlipidemia[ICD10: E78.2] Diagnosis: Muscle weakness (generalized)[ICD10: M62.81] [facility] CPT-4: 04998 11/07/2017 ([id number]) 31816 EST. PATIENT, LEVEL IV Diagnosis: Essential (primary) hypertension[ICD10: I10] Diagnosis: Muscle weakness (generalized)[ICD10: M62.81] Diagnosis: Low back pain[ICD10: M54.5] Cristal Chicas MD, [facility] CPT- 4: 61691 09/12/2017 ([id number]) OFFICE VISIT, NEW - LEVEL 4 Diagnosis: Essential (primary) hypertension[ICD10: I10] Diagnosis: Mixed hyperlipidemia[ICD10: E78.2] Cristal Chicas MD, [facility] CPT-4: 56160 04/11/2017 Plan of Care Planned Activity Notes Codes Status Date Visit Plan: Lumbar spine pain - with radiculopathy - I have recommended that the patient be seen at [place] [facility] for back pain injections. 07/25/2018 Appointment: [facility] [phone] [facility] [place] [place] (15 min) Moderate 07/25/2018 Patient Education: Patient Medication Summary Completed 07/25/2018 Patient Education: Back Pain Completed 07/25/2018 Care Plan: Referral Order SNOMED-CT : [id number] Pending 07/25/2018 Referral: Mani Thomas HPtel:[phone] [facility] [place] [place] Referral Initiated 06/17/2018 Care Plan: Referral Order SNOMED-CT : 611274005 Pending 05/31/2018 Visit Plan: Medicare Exam - [...] [facility] [phone] [facility] [place] [facility] - Annual Wellness Visit 05/30/2018 Patient Education: Patient Medication Summary Completed 05/30/2018 Care Plan: Comp Metabolic Pending 05/30/2018 Care Plan: Cbc With Differential Pending 05/30/2018 Care Plan: Tsh Pending 05/30/2018 Care Plan: Lipid Pending 05/30/2018 Care Plan: Total Psa Pending 05/30/2018 Visit Plan: Rash - improved - continue with steroid and antifungal cream. 05/08/2018 Appointment: Cristal Chicas WPtel: [phone] [facility] (15 min) Moderate 05/08/2018 Patient Education: [...] stump. 04/10/2018 Appointment: Cristal Chicas WPtel: [phone] [facility] (15 min) Moderate 04/10/2018 Patient Education: [...] anti-fungal. 03/06/2018 Appointment: [facility]Ptel[facility] [phone] [facility] [place] [place] (15 min) Moderate 03/06/2018 Patient Education: Patient [...] improved. 11/07/2017 Appointment: [facility] Chicas WPtel: [phone] [facility] [place] [place] (15 min) Moderate 11/07/2017 Patient Education: Patient [...] therapy 09/12/2017 Appointment: [facility]icas WPtel: [phone] [facility] [place] [place] (15 min) Moderate 09/12/2017 Patient Education: Patient Medication Summary Completed 09/12/2017 Care Plan: Referral Order SNOMED-CT : [id number] Pending 09/12/2017 Visit Plan: Hypertension - well [...] daily. 04/11/2017 Appointment: Cristal Chicas WPtel: [phone] [facility] New Patient 04/11/2017 Patient Education: Patient Medication Summary Completed 04/11/2017 Care Plan: Comp Metabolic Cancelled 04/11/2017 Care Plan: Cbc With Differential Cancelled 04/11/2017 Care Plan: Tsh Cancelled 04/11/2017 Care Plan: Lipid Cancelled 04/11/2017 Care Plan: Total Psa Cancelled 04/11/2017 Referral: [facility] Referral Appointment Requested Referral: Mani Thomas HPtel:[phone] [facility] Referral Initiated Referral: [facility] [...] recommended that the patient be seen at [place] [facility] for back pain injections. [...]
[2018-09-23 11:07] VITALS: BP 110/87
[2018-09-23] MEDS ORDERED: LACTATED RINGERS 1,000 ML IV PRN (11:16)
--- OUTSIDE RECORDS SUMMARY | 2018-09-23 11:19 | XMS REPORT | Continuity of Care Document ---
Author Author [facility] Organization [facility] Address Unknown Phone Unavailable Allergies Active Description Code Type Severity Reaction Onset Reported/Identified Relationship to Patient Clinical Status Yes No Known Drug Allergies [id number] Drug Allergy Unknown N/A 04/30/2007 Medications There is no data. Problems Date Dx Coded Attending Type Code Diagnosis Diagnosed By JEN NICOLAS, ORVILLE Ann Ot M43.16 SPONDYLOLISTHESIS, LUMBAR REGION JEN NICOLAS, ORVILLE Ann Ot M48.062 SPINAL STENOSIS, LUMBAR REGION WITH NEUR 06/28/1124 CHLOÉ NICOLAS, RIZWAN Ann Ot R26.89 OTHER ABNORMALITIES OF GAIT AND MOBILITY 06/28/1447 [facility] DO, SAM Ann Ot Z47.1 AFTERCARE FOLLOWING JOINT REPLACEMENT CARRION 06/28/1447 [facility], SAM Ann Ot Z96.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 LEFT ARTIFICIAL KNEE JOINT 06/28/1699 [facility], SAM Ann Ot Z47.1 AFTERCARE FOLLOWING JOINT REPLACEMENT CARRION 06/28/1699 [facility], SAM Ann Ot Z96.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 LEFT ARTIFICIAL KNEE JOINT 08/11/2010 Ot 250.00 08/11/2010 Ot 272.4 08/11/2010 Ot 401.9 08/11/2010 Ot 414.00 08/11/2010 Ot 416.8 08/11/2010 Ot 427.69 08/11/2010 Ot 427.89 08/11/2010 Ot 428.0 08/11/2010 Ot 433.10 08/11/2010 Ot V45.89 08/11/2010 Ot V53.32 08/11/2010 Ot V58.63 08/11/2010 Ot V58.66 08/11/2010 Ot V58.69 03/23/2011 Ot 250.00 DIAB TREMAYNE WO COMPL, TYPE II OR UNSPEC TY 03/23/2011 Ot 735.4 OTHER HAMMER TOE 09/19/2011 Ot 730.27 OSTEOMYELITIS NOS-ANKLE 09/19/2011 Ot 735.8 ACQ DEFORMITY OF TOE NEC 09/19/2011 Ot V58.69 OTH MED,LT, CURRENT USE 10/22/2011 Ot 041.7 PSEUDOMONAS INFECT NOS 10/22/2011 Ot 250.80 DIAB W OTH SPEC MANIFEST, TYPE II OR UNS 10/22/2011 Ot 278.00 OBESITY, NOS 10/22/2011 Ot 401.9 HYPERTENSION NOS 10/22/2011 Ot 414.01 CORONARY ATHEROSCLEROSIS OF [place] CORON 10/22/2011 Ot 443.9 PERIPH VASCULAR DIS NOS 10/22/2011 Ot 599.0 URIN TRACT INFECTION NOS 10/22/2011 Ot 681.10 CELLULITIS, TOE NOS 10/22/2011 Ot 730.07 AC OSTEOMYELITIS-ANKLE 10/22/2011 Ot 731.8 BONE INVOLV IN OTH DIS 10/22/2011 Ot V58.67 LONG-TERM ( CURRENT) USE OF INSULIN 10/22/2011 Ot V85.33 BODY MASS INDEX 33.0-33.9, ADULT 02/23/2012 Ot 250.00 DIAB TREMAYNE WO COMPL, TYPE II OR UNSPEC TY 02/23/2012 Ot 735.4 OTHER HAMMER TOE 05/30/2013 TOM NICOLAS, BEBA R Ot 250.00 DIAB TREMAYNE WO COMPL, TYPE II OR UNSPEC TY 05/30/2013 TOM NICOLAS, BEBA R Ot 272.4 HYPERLIPIDEMIA NEC/NOS 05/30/2013 TOM NICOLAS, BEBA R Ot 327.23 OBSTRUCTIVE SLEEP APNEA (ADULT) (PEDIATR 05/30/2013 TOM NICOLAS, BEBA R Ot 333.94 RESTLESS LEGS SYNDROME 05/30/2013 BEBA SANTOS MD R Ot 403.90 HYPTNSV CHR KID DIS, UNSPEC, W CHR KD ST 05/30/2013 BEBA SANTOS MD R Ot 414.00 CORON ATHEROSCLER NOS TYPE VESSEL, NATIV 05/30/2013 BEBA SANTOS MD R Ot 428.0 CONGESTIVE HEART FAILURE NOS 05/30/2013 BEBA SANTOS MD R Ot 433.10 CAROTID ARTERY OCCLUSION W O CEREBRAL IN 05/30/2013 BEBA SANTOS MD R Ot 440.8 ATHEROSCLEROSIS NEC 05/30/2013 BEBA SANTOS MD R Ot 443.9 PERIPH VASCULAR DIS NOS 05/30/2013 BEBA SANTOS MD R Ot 458.9 HYPOTENSION NOS 05/30/2013 TOM NICOLAS, BEBA R Ot 496 CHR AIRWAY OBSTRUCT NEC 05/30/2013 TOM NICOLAS, BEBA R Ot 585.9 CHRONIC KIDNEY DISEASE, UNSPECIFIED 05/30/2013 TOM NICOLAS, BEBA R Ot 593.9 RENAL URETERAL DIS NOS 05/30/2013 TOM NICOLAS, BEBA R Ot 599.0 URIN TRACT INFECTION NOS 05/30/2013 TOM NICOLAS, EBBA R Ot V15.82 HISTORY OF TOBACCO USE 05/30/2013 TOM NICOLAS, BEBA R Ot V45.02 AUTO IMPLANTABLE CARDIAC DEFIBRILLATOR I 05/30/2013 TOM NICOLAS, BEBA R Ot V45.81 AORTOCORONARY BYPASS 06/29/2014 Ot 735.0 06/29/2014 Ot 735.4 06/29/2014 Ot V72.83 06/29/2014 Ot V74.8 06/29/2014 Ot 272.4 06/29/2014 Ot 401.9 06/29/2014 Ot 414.00 06/29/2014 Ot 433.10 06/29/2014 Ot 844.9 06/29/2014 Ot E000.8 06/29/2014 Ot E013.5 06/29/2014 Ot E849.0 06/29/2014 Ot E888.8 06/29/2014 Ot V72.63 06/29/2014 Ot V74.8 06/29/2014 Ot 272.4 06/29/2014 Ot 397.0 06/29/2014 Ot 401.9 06/29/2014 Ot 414.00 06/29/2014 Ot 424.0 06/29/2014 Ot 428.0 06/29/2014 Ot 414.00 06/29/2014 Ot 428.0 06/29/2014 Ot 735.4 06/29/2014 Ot V72.63 06/29/2014 Ot V74.8 06/29/2014 Ot 755.66 06/29/2014 Ot V72.63 06/29/2014 Ot V74.8 06/29/2014 Ot 755.66 06/29/2014 Ot V64.3 06/29/2014 Ot 458.9 06/29/2014 Ot 735.8 06/29/2014 Ot V64.1 06/29/2014 Ot 396.3 06/29/2014 Ot 397.0 06/29/2014 Ot 428.0 06/29/2014 Ot 429.3 06/29/2014 Ot 733.90 06/29/2014 Ot 735.4 06/29/2014 Ot V72.63 06/29/2014 Ot V74.8 06/29/2014 JAMAAL NICOLAS, MALIK Omalley Ot 396.3 06/29/2014 JAMAAL NICOLAS, MALIK Omalley Ot 397.0 06/29/2014 JAMAAL NICOLAS, MALIK Omalley Ot 414.00 06/29/2014 JAMAAL NICOLAS, MALIK Omalley Ot 427.69 06/29/2014 JAMAAL NICOLAS, MALIK Omalley Ot 428.0 06/29/2014 JAMAAL NICOLAS, MALIK Omalley Ot 793.2 06/29/2014 JAMAAL NICOLAS, MALIK Omalley Ot 397.0 06/29/2014 JAMAAL NICOLAS, MALIK Omalley Ot 424.0 06/29/2014 JAMAAL NICOLAS, MALIK Omalley Ot 428.0 06/29/2014 JAMAAL NICOLAS, MALIK Omalley Ot 434.91 06/29/2014 JAMAAL NICOLAS, MALIK Omalley Ot 435.9 06/29/2014 SABINA NICOLAS, LESLIE Alcala Ot 440.20 07/10/2014 TOM NICOLAS, BEBA Kitchen Ot 427.89 07/10/2014 Ot 735.0 07/10/2014 Ot 735.4 07/10/2014 Ot V72.83 07/10/2014 Ot V74.8 07/10/2014 Ot 272.4 07/10/2014 Ot 401.9 07/10/2014 Ot 414.00 07/10/2014 Ot 433.10 07/10/2014 Ot 844.9 07/10/2014 Ot E000.8 07/10/2014 Ot E013.5 07/10/2014 Ot E849.0 07/10/2014 Ot E888.8 07/10/2014 Ot V72.63 07/10/2014 Ot V74.8 07/10/2014 Ot 272.4 07/10/2014 Ot 397.0 07/10/2014 Ot 401.9 07/10/2014 Ot 414.00 07/10/2014 Ot 424.0 07/10/2014 Ot 428.0 07/10/2014 Ot 414.00 07/10/2014 Ot 428.0 07/10/2014 Ot 735.4 07/10/2014 Ot V72.63 07/10/2014 Ot V74.8 07/10/2014 Ot 755.66 07/10/2014 Ot V72.63 07/10/2014 Ot V74.8 07/10/2014 Ot 755.66 07/10/2014 Ot V64.3 07/10/2014 TOM NICOLAS, BEBA Kitchen Ot 427.89 07/10/2014 Ot 458.9 07/10/2014 Ot 735.8 07/10/2014 Ot V64.1 07/10/2014 Ot 396.3 07/10/2014 Ot 397.0 07/10/2014 Ot 428.0 07/10/2014 Ot 429.3 07/10/2014 Ot 733.90 07/10/2014 Ot 735.4 07/10/2014 Ot V72.63 07/10/2014 Ot V74.8 07/10/2014 JAMAAL NICOLAS, MALIK Omalley Ot 396.3 07/10/2014 JAMAAL NICOLAS, MALIK J Ot 397.0 07/10/2014 JAMAAL NICOLAS, MALIK J Ot 414.00 07/10/2014 JAMAAL NICOLAS, MALIK J Ot 427.69 07/10/2014 JAMAAL NICOLAS, MALIK J Ot 428.0 07/10/2014 JAMAAL NICOLAS, MALIK J Ot 793.2 07/10/2014 JAMAAL NICOLAS, MALIK J Ot 397.0 07/10/2014 JAMAAL NICOLAS, MALIK J Ot 424.0 07/10/2014 JAMAAL NICOLAS, MALIK J Ot 428.0 07/10/2014 JAMAAL NICOLAS, BASHAR J Ot 434.91 07/10/2014 JAMAAL NICOLAS, BASHAR J Ot 435.9 07/10/2014 SABINA NICOLAS, LESLIE Alcala Ot 440.20 07/29/2014 TOM NICOLAS, BEBA R Ot 427.89 08/07/2014 BEBA SANTOS MD Ot 427.89 09/17/2014 DARLING BROWN Ot 272.4 09/17/2014 DARLING BROWN Ot 397.0 09/17/2014 DARLING BROWN Ot 401.9 09/17/2014 DARLING BROWN Ot 414.00 09/17/2014 DARLING BROWN Ot 424.0 09/17/2014 DARLING BROWN Ot 428.0 11/19/2014 MALIK HINTON MD Ot 250.00 DIAB TREMAYNE WO COMPL, TYPE II OR UNSPEC TY 11/19/2014 MALIK HINTON MD Ot 414.01 CORONARY ATHEROSCLEROSIS OF [place] CORON 11/19/2014 MALIK HINTON MD Ot 414.02 CORON ATHEROSCLEROSIS AUTOLOG VEIN BYPAS 11/19/2014 MALIK HINTON MD Ot 414.2 CHRONIC TOTAL OCCLUSION OF CORONARY [place] 11/19/2014 MALIK HINTON MD Ot 414.4 CORONARY ATHEROSCLEROSIS DUE TO [place] 11/19/2014 MALIK HINTON MD Ot 414.8 CHR ISCHEMIC HRT DIS NEC 11/19/2014 MALIK HINTON MD Ot 427.1 PAROX VENTRIC TACHYCARD 11/19/2014 MALIK HINTON MD Ot 428.0 CONGESTIVE HEART FAILURE NOS 11/19/2014 MALIK HINTON MD Ot 428.22 CHRONIC SYSTOLIC HRT FAILURE 11/19/2014 MALIK HINTON MD Ot V15.82 HISTORY OF TOBACCO USE 11/19/2014 MALIK HINTON MD Ot V45.02 AUTO IMPLANTABLE CARDIAC DEFIBRILLATOR I 11/19/2014 MALIK HINTON MD, Ot V45.81 AORTOCORONARY BYPASS 11/19/2014 MALIK HINTON MD, Ot V58.69 OTH MED,LT,CURRENT USE 12/22/2015 LESLIE MUHAMMAD MD, Ot M17.12 UNILATERAL PRIMARY OSTEOARTHRITIS, LEFT 12/22/2015 LESLIE MUHAMMAD MD, Ot R53.83 OTHER FATIGUE 12/22/2015 LESLIE MUHAMMAD MD, Ot Z01.811 ENCOUNTER FOR PREPROCEDURAL RESPIRATORY 12/22/2015 LESLIE MUHAMMAD MD, Ot Z01.812 ENCOUNTER FOR PREPROCEDURAL LABORATORY E 12/22/2015 LESLIE MUHAMMAD MD, Ot Z11.2 ENCOUNTER FOR SCREENING FOR OTHER BACTER 12/22/2015 LESLIE MUHAMMAD MD, Ot Z79.899 OTHER CARE HOME (CURRENT) DRUG THERAPY 12/23/2015 LESLIE MUHAMMAD MD, Ot M17.12 UNILATERAL PRIMARY OSTEOARTHRITIS, LEFT 12/23/2015 LESLIE MUHAMMAD MD Ot R53.83 OTHER FATIGUE 12/23/2015 LESLIE MUHAMMAD MD Ot Z01.811 ENCOUNTER FOR PREPROCEDURAL RESPIRATORY 12/23/2015 LESLIE MUHAMMAD MD Ot Z01.812 ENCOUNTER FOR PREPROCEDURAL LABORATORY E 12/23/2015 LESLIE MUHAMMAD MD Ot Z11.2 ENCOUNTER FOR SCREENING FOR OTHER BACTER 12/23/2015 LESLIE MUHAMMAD MD Ot Z79.899 OTHER CARE HOME (CURRENT) DRUG THERAPY 12/23/2015 LESLIE MUHAMMAD MD, Ot M17.12 UNILATERAL PRIMARY OSTEOARTHRITIS, LEFT 12/23/2015 LESLIE MUHAMMAD MD Ot R53.83 OTHER [place]IGUE 12/23/2015 LESLIE MUHAMMAD MD Ot Z01.811 ENCOUNTER FOR PREPROCEDURAL RESPIRATORY 12/23/2015 LESLIE MUHAMMAD MD Ot Z01.812 ENCOUNTER FOR PREPROCEDURAL LABORATORY E 12/23/2015 LESLIE MUHAMMAD MD Ot Z11.2 ENCOUNTER FOR SCREENING FOR OTHER BACTER 12/23/2015 LESLIE MUHAMMAD MD Ot 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 01/03/2016 LESLIE MUHAMMAD MD Ot E11.9 TYPE 2 DIABETES MELLITUS WITHOUT COMPLIC 01/03/2016 LESLIE MUHAMMAD MD Ot E78.5 HYPERLIPIDEMIA, UNSPECIFIED 01/03/2016 LESLIE MUHAMMAD MD Ot G25.81 RESTLESS LEGS SYNDROME 01/03/2016 LESLIE MUHAMMAD MD Ot G47.33 OBSTRUCTIVE SLEEP APNEA (ADULT) (PEDIATR 01/03/2016 LESLIE MUHAMMAD MD Ot I10 ESSENTIAL (PRIMARY) HYPERTENSION 01/03/2016 LESLIE MUHAMMAD MD Ot I12.9 HYPERTENSIVE CHRONIC KIDNEY DISEASE W ST 01/03/2016 LESLIE MUHAMMAD MD Ot I25.10 ATHSCL HEART DISEASE OF [place] CORONARY 01/03/2016 LESLIE MUHAMMAD MD Ot I50.22 CHRONIC SYSTOLIC (CONGESTIVE) HEART FAIL 01/03/2016 LESLIE MUHAMMAD MD Ot 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 01/03/2016 LESLIE MUHAMMAD MD Ot J44.9 CHRONIC OBSTRUCTIVE PULMONARY DISEASE, U 01/03/2016 LESLIE MUHAMMAD MD, Ot M17.12 UNILATERAL PRIMARY OSTEOARTHRITIS, LEFT 01/03/2016 LESLIE MUHAMMAD MD, Ot N18.9 CHRONIC KIDNEY DISEASE, UNSPECIFIED 01/03/2016 LESLIE MUHAMMAD MD, Ot Z87.891 PERSONAL HISTORY OF NICOTINE DEPENDENCE 01/03/2016 LESLIE MUHAMMAD MD, Ot Z95.1 PRESENCE OF AORTOCORONARY BYPASS GRAFT 01/03/2016 LESLIE MUHAMMAD MD Ot Z95.5 PRESENCE OF CORONARY ANGIOPLASTY IMPLANT 01/03/2016 LESLIE MUHAMMAD MD, Ot Z95.810 PRESENCE OF AUTOMATIC (IMPLANTABLE) CARD 01/04/2016 LESLIE MUHAMMAD MD Ot 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 01/04/2016 LESLIE MUHAMMAD MD, Ot E78.5 HYPERLIPIDEMIA, UNSPECIFIED 01/04/2016 LESLIE MUHAMMAD MD, Ot G47.33 OBSTRUCTIVE SLEEP APNEA (ADULT) (PEDIATR 01/04/2016 LESLIE MUHAMMAD MD, Ot I12.9 HYPERTENSIVE CHRONIC KIDNEY DISEASE W ST 01/04/2016 LESLIE MUHAMMAD MD, Ot I25.10 ATHSCL HEART DISEASE OF [place] CORONARY 01/04/2016 LESLIE MUHAMMAD MD, Ot I50.22 CHRONIC SYSTOLIC (CONGESTIVE) HEART FAIL 01/04/2016 LESLIE MUHAMMAD MD, Ot 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 01/04/2016 LESLIE MUHAMMAD MD, Ot J44.9 CHRONIC OBSTRUCTIVE PULMONARY DISEASE, U 01/04/2016 LESLIE MUHAMMAD MD, Ot N18.9 CHRONIC KIDNEY DISEASE, UNSPECIFIED 01/04/2016 LESLIE MUHAMMAD MD, Ot Z47.1 AFTERCARE FOLLOWING JOINT REPLACEMENT CARRION 01/04/2016 LESLIE MUHAMMAD MD, Ot Z87.891 PERSONAL HISTORY OF NICOTINE DEPENDENCE 01/04/2016 LESLIE MUHAMMAD MD Ot Z95.1 PRESENCE OF AORTOCORONARY BYPASS GRAFT 01/04/2016 LESLIE MUHAMMAD MD Ot Z95.5 PRESENCE OF CORONARY ANGIOPLASTY IMPLANT 01/04/2016 LESLIE MUHAMMAD MD Ot Z95.810 PRESENCE OF AUTOMATIC (IMPLANTABLE) CARD 01/04/2016 LESLIE MUHAMMAD MD Ot Z96.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 LEFT ARTIFICIAL KNEE JOINT 01/04/2016 LESLIE MUHAMMAD MD Ot 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 01/04/2016 LESLIE MUHAMMAD MD Ot E78.5 HYPERLIPIDEMIA, UNSPECIFIED 01/04/2016 LESLIE MUHAMMAD MD, Ot G47.33 OBSTRUCTIVE SLEEP APNEA (ADULT) (PEDIATR 01/04/2016 LESLIE MUHAMMAD MD, Ot I12.9 HYPERTENSIVE CHRONIC KIDNEY DISEASE W ST 01/04/2016 LESLIE MUHAMMAD MD Ot I25.10 ATHSCL HEART DISEASE OF [place] CORONARY 01/04/2016 LESLIE MUHAMMAD MD, Ot I50.22 CHRONIC SYSTOLIC (CONGESTIVE) HEART FAIL 01/04/2016 LESLIE MUHAMMAD MD, Ot 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 01/04/2016 LESLIE MUHAMMAD MD, Ot J44.9 CHRONIC OBSTRUCTIVE PULMONARY DISEASE, U 01/04/2016 LESLIE MUHAMMAD MD, Ot N18.9 CHRONIC KIDNEY DISEASE, UNSPECIFIED 01/04/2016 LESLIE MUHAMMAD MD Ot Z47.1 AFTERCARE FOLLOWING JOINT REPLACEMENT CARRION 01/04/2016 LESLIE MUHAMMAD MD Ot Z87.891 PERSONAL HISTORY OF NICOTINE DEPENDENCE 01/04/2016 LESLIE MUHAMMAD MD Ot Z95.1 PRESENCE OF AORTOCORONARY BYPASS GRAFT 01/04/2016 LESLIE MUHAMMAD MD Ot Z95.5 PRESENCE OF CORONARY ANGIOPLASTY IMPLANT 01/04/2016 LESLIE MUHAMMAD MD Ot Z95.810 PRESENCE OF AUTOMATIC (IMPLANTABLE) CARD 01/04/2016 LESLIE MUHAMMAD MD Ot Z96.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 LEFT ARTIFICIAL KNEE JOINT 01/04/2016 LESLIE MUHAMMAD MD Ot 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 01/04/2016 LESLIE MUHAMMAD MD, Ot E78.5 HYPERLIPIDEMIA, UNSPECIFIED 01/04/2016 LESLIE MUHAMMAD MD, Ot G47.33 OBSTRUCTIVE SLEEP APNEA (ADULT) (PEDIATR 01/04/2016 LESLIE MUHAMMAD MD, Ot I12.9 HYPERTENSIVE CHRONIC KIDNEY DISEASE W ST 01/04/2016 LESLIE MUHAMMAD MD, Ot I25.10 ATHSCL HEART DISEASE OF [place] CORONARY 01/04/2016 LESLIE MUHAMMAD MD Ot I50.22 CHRONIC SYSTOLIC (CONGESTIVE) HEART FAIL 01/04/2016 LESLIE MUHAMMAD MD Ot I70.209 UNSP ATHSCL [place] ARTERIES OF [facility] 01/04/2016 LESLIE MUHAMMAD MD, Ot J44.9 CHRONIC OBSTRUCTIVE PULMONARY DISEASE, U 01/04/2016 LESLIE MUHAMMAD MD, Ot N18.9 CHRONIC KIDNEY DISEASE, UNSPECIFIED 01/04/2016 LESLIE MUHAMMAD MD, Ot Z47.1 AFTERCARE FOLLOWING JOINT REPLACEMENT CARRION 01/04/2016 LESLIE MUHAMMAD MD, Ot Z87.891 PERSONAL HISTORY OF NICOTINE DEPENDENCE 01/04/2016 LESLIE MUHAMMAD MD, Ot Z95.1 PRESENCE OF AORTOCORONARY BYPASS GRAFT 01/04/2016 LESLIE MUHAMMAD MD, Ot Z95.5 PRESENCE OF CORONARY ANGIOPLASTY IMPLANT 01/04/2016 LESLIE MUHAMMAD MD, Ot Z95.810 PRESENCE OF AUTOMATIC (IMPLANTABLE) CARD 01/04/2016 LESLIE MUHAMMAD MD, Ot Z96.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 LEFT ARTIFICIAL KNEE JOINT 01/07/2016 LESLIE MUHAMMAD MD, Ot B96.5 PSEUDOMONAS (MALLEI) CAUSING DISEASES CL 01/07/2016 LESLIE MUHAMMAD MD Ot 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 01/07/2016 LESLIE MUHAMMAD MD, Ot E78.5 HYPERLIPIDEMIA, UNSPECIFIED 01/07/2016 LESLIE MUHAMMAD MD, Ot G25.81 RESTLESS LEGS SYNDROME 01/07/2016 LESLIE MUHAMMAD MD, Ot G47.33 OBSTRUCTIVE SLEEP APNEA (ADULT) (PEDIATR 01/07/2016 LESLIE MUHAMMAD MD, Ot I12.9 HYPERTENSIVE CHRONIC KIDNEY DISEASE W ST 01/07/2016 LESLIE MUHAMMAD MD, Ot I25.10 ATHSCL HEART DISEASE OF [place] CORONARY 01/07/2016 LESLIE MUHAMMAD MD, Ot I50.22 CHRONIC SYSTOLIC (CONGESTIVE) HEART FAIL 01/07/2016 LESLIE MUHAMMAD MD, Ot I70.203 UNSP ATHSCL [place] ARTERIES OF [facility] 01/07/2016 LESLIE MUHAMMAD MD Ot I70.209 UNSP ATHSCL [place] ARTERIES OF [facility] 01/07/2016 LESLIE MUHAMMAD MD, Ot J44.9 CHRONIC OBSTRUCTIVE PULMONARY DISEASE, U 01/07/2016 LESLIE MUHAMMAD MD, Ot N18.9 CHRONIC KIDNEY DISEASE, UNSPECIFIED 01/07/2016 ZAFUTA MD, LESLIE P Ot N39.0 URINARY TRACT INFECTION, SITE NOT SPECIF 01/07/2016 SABINA NICOLAS, LESLIE Alcala Ot Z47.1 AFTERCARE FOLLOWING JOINT REPLACEMENT CARRION 01/07/2016 SABINA NICOLAS, LESLIE Alcala Ot Z87.891 PERSONAL HISTORY OF NICOTINE DEPENDENCE 01/07/2016 LESLIE MUHAMMAD MD Ot Z95.1 PRESENCE OF AORTOCORONARY BYPASS GRAFT 01/07/2016 LESLIE MUHAMMAD MD Ot Z95.5 PRESENCE OF CORONARY ANGIOPLASTY IMPLANT 01/07/2016 LESLIE MUHAMMAD MD Ot Z95.810 PRESENCE OF AUTOMATIC (IMPLANTABLE) CARD 01/07/2016 LESLIE MUHAMMAD MD Ot Z96.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 LEFT ARTIFICIAL KNEE JOINT 01/17/2016 [facility] SAM Ann Ot Z47.1 AFTERCARE FOLLOWING JOINT REPLACEMENT CARRION 01/17/2016 [facility] DO, SAM Ann Ot Z96.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 LEFT ARTIFICIAL KNEE JOINT 02/01/2016 [facility] DO, SAM Ann Ot Z47.1 AFTERCARE FOLLOWING JOINT REPLACEMENT CARRION 02/01/2016 [facility] DO, SAM Ann Ot Z96.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 LEFT ARTIFICIAL KNEE JOINT 02/17/2016 [facility] DO, SAM Ann Ot N39.0 URINARY TRACT INFECTION, SITE NOT SPECIF 02/17/2016 [facility] DO, SAM Ann Ot Z47.1 AFTERCARE FOLLOWING JOINT REPLACEMENT CARRION 02/17/2016 [facility] DO, SAM Ann Ot Z96.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 LEFT ARTIFICIAL KNEE JOINT 02/22/2016 [facility] DO, SAM Ann Ot N39.0 URINARY TRACT INFECTION, SITE NOT SPECIF 02/22/2016 [facility] Ot Z47.1 AFTERCARE FOLLOWING JOINT REPLACEMENT CARRION 02/22/2016 [facility]ENDER , SAM Ann Ot Z96.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 LEFT ARTIFICIAL KNEE JOINT 03/01/2016 Ot 414.00 CORON ATHEROSCLER NOS TYPE VESSEL, NATIV 03/01/2016 Ot 428.0 CONGESTIVE HEART FAILURE NOS 03/01/2016 Ot 735.4 OTHER HAMMER TOE 03/01/2016 Ot V72.63 PRE- PROCEDURAL LABORATORY EXAMINATION 03/01/2016 Ot V74.8 SCREEN- BACTERIAL DIS NEC 03/01/2016 Ot 755.66 ANOMALIES OF TOES NEC 03/01/2016 Ot V72.63 PRE- PROCEDURAL LABORATORY EXAMINATION 03/01/2016 Ot V74.8 SCREEN- BACTERIAL DIS NEC 03/01/2016 Ot 755.66 ANOMALIES OF TOES NEC 03/01/2016 Ot V64.3 NO PROC FOR REASONS NEC 03/01/2016 TOM NICOLAS, BEBA Kitchen Ot 427.89 CARDIAC DYSRHYTHMIAS NEC 03/01/2016 Ot 458.9 HYPOTENSION NOS 03/01/2016 Ot 735.8 ACQ DEFORMITY OF TOE NEC 03/01/2016 Ot V64.1 NO PROC/ CONTRAINDICATION 03/01/2016 Ot 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 03/01/2016 Ot 397.0 TRICUSPID VALVE DISEASE 03/01/2016 Ot 428.0 CONGESTIVE HEART FAILURE NOS 03/01/2016 Ot 429.3 CARDIOMEGALY 03/01/2016 Ot 733.90 BONE CARTILAGE DIS NOS 03/01/2016 Ot 735.4 OTHER HAMMER TOE 03/01/2016 Ot V72.63 PRE- PROCEDURAL LABORATORY EXAMINATION 03/01/2016 Ot V74.8 SCREEN- BACTERIAL DIS NEC 03/01/2016 MALIK HINTON MD Ot 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 03/01/2016 MALIK HINTON MD Ot 397.0 TRICUSPID VALVE DISEASE 03/01/2016 MALIK HINTON MD Ot 414.00 CORON ATHEROSCLER NOS TYPE VESSEL, NATIV 03/01/2016 MALIK HINTON MD Ot 427.69 PREMATURE BEATS NEC 03/01/2016 MALIK HINTON MD Ot 428.0 CONGESTIVE HEART FAILURE NOS 03/01/2016 MALIK HINTON MD Ot 793.2 NOSP (ABN) FINDINGS ON RADIOLOGICAL OT 03/01/2016 MALIK HINTON MD Ot 397.0 TRICUSPID VALVE DISEASE 03/01/2016 MALIK HINTON MD Ot 424.0 MITRAL VALVE DISORDER 03/01/2016 MALIK HINTON MD Ot 428.0 CONGESTIVE HEART FAILURE NOS 03/01/2016 MALIK HINTON MD Ot 434.91 CEREBRAL ART OCCLUSION NOS W CEREBRAL IN 03/01/2016 MALIK HINTON MD Ot 435.9 TRANS CEREB ISCHEMIA NOS 03/01/2016 SABINA NICOLAS, LESLIE Alcala Ot 440.20 ATHEROSCLEROSIS [place] ARTERIES EXTREMIT 03/01/2016 DARLING BROWN Ot 272.4 HYPERLIPIDEMIA NEC/NOS 03/01/2016 DARLING BROWN Ot 397.0 TRICUSPID VALVE DISEASE 03/01/2016 DARLING BROWN Ot 401.9 HYPERTENSION NOS 03/01/2016 DARLING BROWN Ot 414.00 CORON ATHEROSCLER NOS TYPE VESSEL, NATIV 03/01/2016 DARLING BROWN Ot 424.0 MITRAL VALVE DISORDER 03/01/2016 DARLING BROWN Ot 428.0 CONGESTIVE HEART FAILURE NOS 03/01/2016 SAM DALEY DO, Ot N39.0 URINARY TRACT INFECTION, SITE NOT SPECIF 03/01/2016 SAM DALEY DO, Ot Z47.1 AFTERCARE FOLLOWING JOINT REPLACEMENT CARRION 03/01/2016 SAM DALEY DO, Ot Z96.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 LEFT ARTIFICIAL KNEE JOINT 03/02/2016 MALIK HINTON MD, Ot 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 03/02/2016 MALIK HINTON MD, Ot G47.33 OBSTRUCTIVE SLEEP APNEA (ADULT) (PEDIATR 03/02/2016 MALIK HINTON MD, Ot I12.9 HYPERTENSIVE CHRONIC KIDNEY DISEASE W ST 03/02/2016 MALIK HINTON MD, Ot I25.10 ATHSCL HEART DISEASE OF [place] CORONARY 03/02/2016 MALIK HINTON MD, Ot 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[place] 03/02/2016 MALIK HINTON MD, Ot I47.2 VENTRICULAR TACHYCARDIA 03/02/2016 MALIK HINTON MD, Ot I50.22 CHRONIC SYSTOLIC (CONGESTIVE) HEART FAIL 03/02/2016 MALIK HINTON MD, Ot N18.9 CHRONIC KIDNEY DISEASE, UNSPECIFIED 03/02/2016 MALIK HINTON MD, Ot Z45.02 ENCNTR FOR ADJUST AND MGMT OF AUTOMATIC 03/02/2016 MALIK HINTON MD, Ot 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 03/02/2016 MALIK HINTON MD, Ot Z95.1 PRESENCE OF AORTOCORONARY BYPASS GRAFT 03/02/2016 MALIK HINTON MD, Ot Z95.5 PRESENCE OF CORONARY ANGIOPLASTY IMPLANT 03/13/2016 MALIK HINTON MD Ot 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 03/13/2016 MALIK HINTON MD, Ot G47.33 OBSTRUCTIVE SLEEP APNEA (ADULT) (PEDIATR 03/13/2016 MALIK HINTON MD Ot I12.9 HYPERTENSIVE CHRONIC KIDNEY DISEASE W ST 03/13/2016 MALIK HINTON MD Ot I25.10 ATHSCL HEART DISEASE OF [place] CORONARY 03/13/2016 MALIK HINTON MD Ot 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[place] 03/13/2016 MALIK HINTON MD Ot I47.2 VENTRICULAR TACHYCARDIA 03/13/2016 MALIK HINTON MD Ot I50.22 CHRONIC SYSTOLIC (CONGESTIVE) HEART FAIL 03/13/2016 MALIK HINTON MD Ot N18.9 CHRONIC KIDNEY DISEASE, UNSPECIFIED 03/13/2016 MALIK HINTON MD Ot Z45.02 ENCNTR FOR ADJUST AND MGMT OF AUTOMATIC 03/13/2016 MALIK HINTON MD Ot Z79.899 OTHER CARE HOME (CURRENT) DRUG THERAPY 03/13/2016 MALIK HINTON MD Ot Z95.1 PRESENCE OF AORTOCORONARY BYPASS GRAFT 03/13/2016 MALIK HINTON MD Ot Z95.5 PRESENCE OF CORONARY ANGIOPLASTY IMPLANT 03/15/2016 MALIK HINTON MD Ot 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 03/15/2016 MALIK HINTON MD Ot G47.33 OBSTRUCTIVE SLEEP APNEA (ADULT) (PEDIATR 03/15/2016 MALIK HINTON MD Ot I12.9 HYPERTENSIVE CHRONIC KIDNEY DISEASE W ST 03/15/2016 MALIK HINTON MD Ot I25.10 ATHSCL HEART DISEASE OF [place] CORONARY 03/15/2016 MALIK HINTON MD Ot 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[place] 03/15/2016 MALIK HINTON MD Ot I47.2 VENTRICULAR TACHYCARDIA 03/15/2016 MALIK HINTON MD Ot I50.22 CHRONIC SYSTOLIC (CONGESTIVE) HEART FAIL 03/15/2016 MALIK HINTON MD Ot N18.9 CHRONIC KIDNEY DISEASE, UNSPECIFIED 03/15/2016 MALIK HINTON MD Ot Z45.02 ENCNTR FOR ADJUST AND MGMT OF AUTOMATIC 03/15/2016 MALIK HINTON MD Ot Z79.899 OTHER CARE HOME (CURRENT) DRUG THERAPY 03/15/2016 MALIK HINTON MD Ot Z95.1 PRESENCE OF AORTOCORONARY BYPASS GRAFT 03/15/2016 MALIK HINTON MD Ot Z95.5 PRESENCE OF CORONARY ANGIOPLASTY IMPLANT 03/18/2016 MALIK HINTON MD Ot 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 03/18/2016 MALIK HINTON MD, Ot G47.33 OBSTRUCTIVE SLEEP APNEA (ADULT) (PEDIATR 03/18/2016 MALIK HINTON MD Ot I12.9 HYPERTENSIVE CHRONIC KIDNEY DISEASE W ST 03/18/2016 MALIK HINTON MD Ot I25.10 ATHSCL HEART DISEASE OF [place] CORONARY 03/18/2016 MALIK HINTON MD, Ot 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[place] 03/18/2016 MALIK HINTON MD Ot I47.2 VENTRICULAR TACHYCARDIA 03/18/2016 MALIK HINTON MD, Ot I50.22 CHRONIC SYSTOLIC (CONGESTIVE) HEART FAIL 03/18/2016 MALIK HINTON MD Ot N18.9 CHRONIC KIDNEY DISEASE, UNSPECIFIED 03/18/2016 MALIK HINTON MD Ot Z45.02 ENCNTR FOR ADJUST AND MGMT OF AUTOMATIC 03/18/2016 MALIK HINTON MD Ot 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 03/18/2016 MALIK HINTON MD Ot Z95.1 PRESENCE OF AORTOCORONARY BYPASS GRAFT 03/18/2016 MALIK HINTON MD Ot Z95.5 PRESENCE OF CORONARY ANGIOPLASTY IMPLANT 04/07/2016 SAM DALEY DO Ot N39.0 URINARY TRACT INFECTION, SITE NOT SPECIF 04/10/2016 SAM DALEY DO Ot Z47.1 AFTERCARE FOLLOWING JOINT REPLACEMENT CARRION 04/10/2016 SAM DALEY DO Ot Z96.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 LEFT ARTIFICIAL KNEE JOINT 04/11/2016 SAM DALEY DO Ot Z47.1 AFTERCARE FOLLOWING JOINT REPLACEMENT CARRION 04/11/2016 SAM DALEY DO Ot Z96.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 LEFT ARTIFICIAL KNEE JOINT 04/16/2016 SAM DALEY DO Ot Z47.1 AFTERCARE FOLLOWING JOINT REPLACEMENT CARRION 04/16/2016 SAM DALEY DO Ot Z96.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 LEFT ARTIFICIAL KNEE JOINT 04/28/2016 SAM DALEY DO Ot Z47.1 AFTERCARE FOLLOWING JOINT REPLACEMENT CARRION 04/28/2016 SAM DALEY DO Ot Z96.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 LEFT ARTIFICIAL KNEE JOINT 05/03/2016 Ot 414.00 CORON ATHEROSCLER NOS TYPE VESSEL, NATIV 05/03/2016 Ot 428.0 CONGESTIVE HEART FAILURE NOS 05/03/2016 Ot 735.4 OTHER HAMMER TOE 05/03/2016 Ot V72.63 PRE- PROCEDURAL LABORATORY EXAMINATION 05/03/2016 Ot V74.8 SCREEN- BACTERIAL DIS NEC 05/03/2016 Ot 755.66 ANOMALIES OF TOES NEC 05/03/2016 Ot V72.63 PRE- PROCEDURAL LABORATORY EXAMINATION 05/03/2016 Ot V74.8 SCREEN- BACTERIAL DIS NEC 05/03/2016 Ot 755.66 ANOMALIES OF TOES NEC 05/03/2016 Ot V64.3 NO PROC FOR REASONS NEC 05/03/2016 TOM NICOLAS, BEBA Kitchen Ot 427.89 CARDIAC DYSRHYTHMIAS NEC 05/03/2016 Ot 458.9 HYPOTENSION NOS 05/03/2016 Ot 735.8 ACQ DEFORMITY OF TOE NEC 05/03/2016 Ot V64.1 NO PROC/ CONTRAINDICATION 05/03/2016 Ot 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 05/03/2016 Ot 397.0 TRICUSPID VALVE DISEASE 05/03/2016 Ot 428.0 CONGESTIVE HEART FAILURE NOS 05/03/2016 Ot 429.3 CARDIOMEGALY 05/03/2016 Ot 733.90 BONE CARTILAGE DIS NOS 05/03/2016 Ot 735.4 OTHER HAMMER TOE 05/03/2016 Ot V72.63 PRE- PROCEDURAL LABORATORY EXAMINATION 05/03/2016 Ot V74.8 SCREEN- BACTERIAL DIS NEC 05/03/2016 MALIK HINTON MD Ot 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 05/03/2016 MALIK HINTON MD Ot 397.0 TRICUSPID VALVE DISEASE 05/03/2016 MALIK HINTON MD Ot 414.00 CORON ATHEROSCLER NOS TYPE VESSEL, NATIV 05/03/2016 MALIK HINTON MD Ot 427.69 PREMATURE BEATS NEC 05/03/2016 MALIK HINTON MD Ot 428.0 CONGESTIVE HEART FAILURE NOS 05/03/2016 MALIK HINTON MD Ot 793.2 NOSP (ABN) FINDINGS ON RADIOLOGICAL OT 05/03/2016 MALIK HINTON MD Ot 397.0 TRICUSPID VALVE DISEASE 05/03/2016 MALIK HINTON MD Ot 424.0 MITRAL VALVE DISORDER 05/03/2016 MALIK HINTON MD Ot 428.0 CONGESTIVE HEART FAILURE NOS 05/03/2016 MALIK HINTON MD Ot 434.91 CEREBRAL ART OCCLUSION NOS W CEREBRAL IN 05/03/2016 MALIK HINTON MD Ot 435.9 TRANS CEREB ISCHEMIA NOS 05/03/2016 SABINA NICOLAS, LESLIE Alcala Ot 440.20 ATHEROSCLEROSIS [place] ARTERIES EXTREMIT 05/03/2016 DARLING BROWN Ot 272.4 HYPERLIPIDEMIA NEC/NOS 05/03/2016 DARLING BROWN Ot 397.0 TRICUSPID VALVE DISEASE 05/03/2016 DARLING BROWN Ot 401.9 HYPERTENSION NOS 05/03/2016 DARLING BROWN Ot 414.00 CORON ATHEROSCLER NOS TYPE VESSEL, NATIV 05/03/2016 DARLING BROWN Ot 424.0 MITRAL VALVE DISORDER 05/03/2016 DARLING BROWN Ot 428.0 CONGESTIVE HEART FAILURE NOS 05/03/2016 SAM DALEY DO Ot N39.0 URINARY TRACT INFECTION, SITE NOT SPECIF 05/03/2016 SAM DALEY DO Ot Z47.1 AFTERCARE FOLLOWING JOINT REPLACEMENT CARRION 05/03/2016 SAM DALEY DO Ot Z96.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 LEFT ARTIFICIAL KNEE JOINT 05/04/2016 SAM DALEY DO Ot Z47.1 AFTERCARE FOLLOWING JOINT REPLACEMENT CARRION 05/04/2016 SAM DALEY DO Ot Z96.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 LEFT ARTIFICIAL KNEE JOINT 04/17/2017 TOM NICOLAS, BEBA Kitchen Ot 427.89 CARDIAC DYSRHYTHMIAS NEC 04/17/2017 Ot 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 04/17/2017 Ot 397.0 TRICUSPID VALVE DISEASE 04/17/2017 Ot 428.0 CONGESTIVE HEART FAILURE NOS 04/17/2017 Ot 429.3 CARDIOMEGALY 04/17/2017 Ot 733.90 BONE CARTILAGE DIS NOS 04/17/2017 Ot 735.4 OTHER HAMMER TOE 04/17/2017 Ot V72.63 PRE- PROCEDURAL LABORATORY EXAMINATION 04/17/2017 Ot V74.8 SCREEN- BACTERIAL DIS NEC 04/17/2017 MALIK HINTON MD Ot 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 04/17/2017 MALIK HINTON MD Ot 397.0 TRICUSPID VALVE DISEASE 04/17/2017 MALIK HINTON MD Ot 414.00 CORON ATHEROSCLER NOS TYPE VESSEL, NATIV 04/17/2017 MALIK HINTON MD Ot 427.69 PREMATURE BEATS NEC 04/17/2017 MALIK HINTON MD Ot 428.0 CONGESTIVE HEART FAILURE NOS 04/17/2017 MALIK HINTON MD Ot 793.2 NOSP (ABN) FINDINGS ON RADIOLOGICAL OT 04/17/2017 MALIK HINTON MD Ot 397.0 TRICUSPID VALVE DISEASE 04/17/2017 MALIK HINTON MD Ot 424.0 MITRAL VALVE DISORDER 04/17/2017 MALIK HINTON MD Ot 428.0 CONGESTIVE HEART FAILURE NOS 04/17/2017 MALIK HINTON MD Ot 434.91 CEREBRAL ART OCCLUSION NOS W CEREBRAL IN 04/17/2017 MALIK HINTON MD Ot 435.9 TRANS CEREB ISCHEMIA NOS 04/17/2017 SABINA NICOLAS, LESLIE Alcala Ot 440.20 ATHEROSCLEROSIS [place] ARTERIES EXTREMIT 04/17/2017 DARLING BROWN Ot 272.4 HYPERLIPIDEMIA NEC/NOS 04/17/2017 DARLING BROWN Ot 397.0 TRICUSPID VALVE DISEASE 04/17/2017 DARLING BROWN Ot 401.9 HYPERTENSION NOS 04/17/2017 DARLING BROWN Ot 414.00 CORON ATHEROSCLER NOS TYPE VESSEL, NATIV 04/17/2017 DARLING BROWN Ot 424.0 MITRAL VALVE DISORDER 04/17/2017 DARLING BROWN Ot 428.0 CONGESTIVE HEART FAILURE NOS 04/17/2017 SAM DALEY DO Ot N39.0 URINARY TRACT INFECTION, SITE NOT SPECIF 05/10/2017 KEANU BUNCH MD Ot N28.9 DISORDER OF KIDNEY AND URETER, UNSPECIFI 05/15/2017 MALIK HINTON MD Ot E78.2 MIXED HYPERLIPIDEMIA 05/15/2017 MALIK HINTON MD Ot G47.33 OBSTRUCTIVE SLEEP APNEA (ADULT) (PEDIATR 05/15/2017 MALIK HINTON MD Ot I11.0 HYPERTENSIVE HEART DISEASE WITH HEART FA 05/15/2017 MALIK HINTON MD Ot I25.10 ATHSCL HEART DISEASE OF [place] CORONARY 05/15/2017 MALIK HINTON MD Ot I50.22 CHRONIC SYSTOLIC (CONGESTIVE) HEART FAIL 05/15/2017 ALIVIA NICOLAS, KEANU Ann Ot N28.9 DISORDER OF KIDNEY AND URETER, UNSPECIFI 05/16/2017 MALIK HINTON MD Ot 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 05/16/2017 MALIK HINTON MD Ot E78.2 MIXED HYPERLIPIDEMIA 05/16/2017 MALIK HINTON MD Ot G25.81 RESTLESS LEGS SYNDROME 05/16/2017 MALIK HINTON MD Ot G47.33 OBSTRUCTIVE SLEEP APNEA (ADULT) (PEDIATR 05/16/2017 MALIK HINTON MD Ot I12.9 HYPERTENSIVE CHRONIC KIDNEY DISEASE W ST 05/16/2017 MALIK HINTON MD Ot I25.10 ATHSCL HEART DISEASE OF [place] CORONARY 05/16/2017 MALIK HINTON MD Ot 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[place] 05/16/2017 MALIK HINTON MD Ot I50.22 CHRONIC SYSTOLIC (CONGESTIVE) HEART FAIL 05/16/2017 MALIK HINTON MD Ot I70.0 ATHEROSCLEROSIS OF [place] 05/16/2017 MALIK HINTON MD Ot I70.203 UNSP ATHSCL [place] ARTERIES OF EXTREMITI 05/16/2017 MALIK HINTON MD Ot I71.4 ABDOMINAL AORTIC ANEURYSM, WITHOUT RUPTU 05/16/2017 MALIK HINTON MD Ot N18.9 CHRONIC KIDNEY DISEASE, UNSPECIFIED 05/16/2017 MALIK HINTON MD Ot Z79.899 OTHER CARE HOME (CURRENT) DRUG THERAPY 05/16/2017 MALIK HINTON MD Ot Z95.0 PRESENCE OF CARDIAC PACEMAKER 05/16/2017 MALIK HINTON MD Ot Z95.1 PRESENCE OF AORTOCORONARY BYPASS GRAFT 05/22/2017 MALIK HINTON MD Ot E78.2 MIXED HYPERLIPIDEMIA 05/22/2017 MALIK HINTON MD Ot G47.33 OBSTRUCTIVE SLEEP APNEA (ADULT) (PEDIATR 05/22/2017 MALIK HINTON MD Ot I11.0 HYPERTENSIVE HEART DISEASE WITH HEART FA 05/22/2017 JAMAAL MD, BASHAR J Ot I25.10 ATHSCL HEART DISEASE OF [place] CORONARY 05/22/2017 MALIK HINTON MD Ot I50.22 CHRONIC SYSTOLIC (CONGESTIVE) HEART FAIL 06/20/2017 NEWJOSE CRUZ ELECTRICAL EQUIPMENT TECHNICIAN-C Ot N18.3 CHRONIC KIDNEY DISEASE, STAGE 3 (MODERAT 06/20/2017 NEW, JOSE CRUZ Gracia ELECTRICAL EQUIPMENT TECHNICIAN-C Ot N28.1 CYST OF KIDNEY, ACQUIRED 07/10/2017 NEWJOSE CRUZ ELECTRICAL EQUIPMENT TECHNICIAN-C Ot N18.3 CHRONIC KIDNEY DISEASE, STAGE 3 (MODERAT 07/10/2017 NEW, JOSE CRUZ [place] ELECTRICAL EQUIPMENT TECHNICIAN-C Ot N28.1 CYST OF KIDNEY, ACQUIRED 07/13/2017 NEW, JOSE CRUZ [place] ELECTRICAL EQUIPMENT TECHNICIAN-C Ot N18.3 CHRONIC KIDNEY DISEASE, STAGE 3 (MODERAT 07/13/2017 NEWJOSE CRUZ ELECTRICAL EQUIPMENT TECHNICIAN-C Ot N28.1 CYST OF KIDNEY, ACQUIRED 09/20/2017 TOM NICOLAS, BEBA R Ot 427.89 CARDIAC DYSRHYTHMIAS NEC 09/20/2017 MALIK HINTON MD Ot 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 09/20/2017 MALIK HINTON MD Ot 397.0 TRICUSPID VALVE DISEASE 09/20/2017 MALIK HINTON MD Ot 414.00 CORON ATHEROSCLER NOS TYPE VESSEL, NATIV 09/20/2017 MALIK HINTON MD Ot 427.69 PREMATURE BEATS NEC 09/20/2017 MALIK HINTON MD Ot 428.0 CONGESTIVE HEART FAILURE NOS 09/20/2017 MALIK HINTON MD Ot 793.2 NOSP (ABN) FINDINGS ON RADIOLOGICAL OT 09/20/2017 MALIK HINTON MD Ot 397.0 TRICUSPID VALVE DISEASE 09/20/2017 MALIK HINTON MD Ot 424.0 MITRAL VALVE DISORDER 09/20/2017 MALIK HINTON MD Ot 428.0 CONGESTIVE HEART FAILURE NOS 09/20/2017 MALIK HINTON MD Ot 434.91 CEREBRAL ART OCCLUSION NOS W CEREBRAL IN 09/20/2017 MALIK HINTON MD Ot 435.9 TRANS CEREB ISCHEMIA NOS 09/20/2017 SABINA NICOLAS, LESLIE Alcala Ot 440.20 ATHEROSCLEROSIS [place] ARTERIES EXTREMIT 09/20/2017 DARLING BROWN Ot 272.4 HYPERLIPIDEMIA NEC/NOS 09/20/2017 DARLING BROWN Ot 397.0 TRICUSPID VALVE DISEASE 09/20/2017 DARLING BROWN Ot 401.9 HYPERTENSION NOS 09/20/2017 DARLING BROWN Ot 414.00 CORON ATHEROSCLER NOS TYPE VESSEL, NATIV 09/20/2017 DARLING BROWN Ot 424.0 MITRAL VALVE DISORDER 09/20/2017 DARLING BROWN Ot 428.0 CONGESTIVE HEART FAILURE NOS 09/20/2017 SAM DALEY DO Ot N39.0 URINARY TRACT INFECTION, SITE NOT SPECIF 09/20/2017 ALIVIA NICOLAS, KEANU Ann Ot N28.9 DISORDER OF KIDNEY AND URETER, UNSPECIFI 09/20/2017 MALIK HINTON MD Ot E78.2 MIXED HYPERLIPIDEMIA 09/20/2017 MALIK HINTON MD Ot G47.33 OBSTRUCTIVE SLEEP APNEA (ADULT) (PEDIATR 09/20/2017 MALIK HINTON MD Ot I11.0 HYPERTENSIVE HEART DISEASE WITH HEART FA 09/20/2017 MALIK HINTON MD Ot I25.10 ATHSCL HEART DISEASE OF [place] CORONARY 09/20/2017 MALIK HINTON MD Ot I50.22 CHRONIC SYSTOLIC (CONGESTIVE) HEART FAIL 09/20/2017 JOSE CRUZ MATHUR NP-Ana Ot N18.3 CHRONIC KIDNEY DISEASE, STAGE 3 (MODERAT 09/20/2017 JOSE CRUZ MATHUR NP-Ana Ot N28.1 CYST OF KIDNEY, ACQUIRED 09/21/2017 RIZWAN LUEVANO MD Ot M47.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 OR RADICULOPATHY 09/21/2017 RIZWAN LUEVANO MD Ot M48.04 SPINAL STENOSIS, THORACIC REGION 09/21/2017 RIZWAN LUEVANO MD, Ot M48.061 SPINAL STENOSIS, LUMBAR REGION WITHOUT N 09/21/2017 RIZWAN LUEVANO MD Ot M89.38 HYPERTROPHY OF BONE, OTHER SITE 09/26/2017 RIZWAN LUEVANO MD, Ot M47.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 OR RADICULOPATHY 09/26/2017 RIZWAN LUEVANO MD, Ot M48.04 SPINAL STENOSIS, THORACIC REGION 09/26/2017 CHLOÉ MD, RIZWAN A Ot M48.061 SPINAL STENOSIS, LUMBAR REGION WITHOUT N 09/26/2017 CHLOÉ NICOLAS, RIZWAN Ann Ot M89.38 HYPERTROPHY OF BONE, OTHER SITE 09/26/2017 TOM NICOLAS, BEBA Kitchen Ot 427.89 CARDIAC DYSRHYTHMIAS NEC 09/26/2017 MALIK HINTON MD Ot 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 09/26/2017 MALIK HINTON MD Ot 397.0 TRICUSPID VALVE DISEASE 09/26/2017 MALIK HINTON MD Ot 414.00 CORON ATHEROSCLER NOS TYPE VESSEL, NATIV 09/26/2017 MALIK HINTON MD Ot 427.69 PREMATURE BEATS NEC 09/26/2017 MALIK HINTON MD Ot 428.0 CONGESTIVE HEART FAILURE NOS 09/26/2017 MALIK HINTON MD Ot 793.2 NOSP (ABN) FINDINGS ON RADIOLOGICAL OT 09/26/2017 MALIK HINTON MD Ot 397.0 TRICUSPID VALVE DISEASE 09/26/2017 MALIK HINTON MD Ot 424.0 MITRAL VALVE DISORDER 09/26/2017 MALIK HINTON MD Ot 428.0 CONGESTIVE HEART FAILURE NOS 09/26/2017 MALIK HINTON MD Ot 434.91 CEREBRAL ART OCCLUSION NOS W CEREBRAL IN 09/26/2017 MALIK HINTON MD Ot 435.9 TRANS CEREB ISCHEMIA NOS 09/26/2017 SABINA NICOLAS, LESLIE Alcala Ot 440.20 ATHEROSCLEROSIS [place] ARTERIES EXTREMIT 09/26/2017 DARLING BROWN Ot 272.4 HYPERLIPIDEMIA NEC/NOS 09/26/2017 DARLING BROWN Ot 397.0 TRICUSPID VALVE DISEASE 09/26/2017 DARLING BROWN Ot 401.9 HYPERTENSION NOS 09/26/2017 DARLING BROWN Ot 414.00 CORON ATHEROSCLER NOS TYPE VESSEL, NATIV 09/26/2017 DARLING BROWN Ot 424.0 MITRAL VALVE DISORDER 09/26/2017 DARLING BROWN Ot 428.0 CONGESTIVE HEART FAILURE NOS 09/26/2017 SAM DALEY DO Ot N39.0 URINARY TRACT INFECTION, SITE NOT SPECIF 09/26/2017 KEANU BUNCH MD Ot N28.9 DISORDER OF KIDNEY AND URETER, UNSPECIFI 09/26/2017 MALIK HINTON MD Ot E78.2 MIXED HYPERLIPIDEMIA 09/26/2017 MALIK HINTON MD Ot G47.33 OBSTRUCTIVE SLEEP APNEA (ADULT) (PEDIATR 09/26/2017 MALIK HINTON MD Ot I11.0 HYPERTENSIVE HEART DISEASE WITH HEART FA 09/26/2017 MALIK HINTON MD Ot I25.10 ATHSCL HEART DISEASE OF [place] CORONARY 09/26/2017 MALIK HINTON MD Ot I50.22 CHRONIC SYSTOLIC (CONGESTIVE) HEART FAIL 09/26/2017 JOSE CRUZ MATHUR NP-C Ot N18.3 CHRONIC KIDNEY DISEASE, STAGE 3 (MODERAT 09/26/2017 JOSE CRUZ MATHUR ELECTRICAL EQUIPMENT TECHNICIAN-C Ot N28.1 CYST OF KIDNEY, ACQUIRED 09/26/2017 RIZWAN LUEVANO MD, Ot M47.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 OR RADICULOPATHY 09/26/2017 RIZWAN LUEVANO MD Ot M48.04 SPINAL STENOSIS, THORACIC REGION 09/26/2017 RIZWAN LUEVANO MD Ot M48.061 SPINAL STENOSIS, LUMBAR REGION WITHOUT N 09/26/2017 RIZWAN LUEVANO MD Ot M89.38 HYPERTROPHY OF BONE, OTHER SITE 10/16/2017 RIZWAN LUEVANO MD Ot M47.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 OR RADICULOPATHY 10/16/2017 RIZWAN LUEVANO MD Ot M48.04 SPINAL STENOSIS, THORACIC REGION 10/16/2017 RIZWAN LUEVANO MD Ot M48.061 SPINAL STENOSIS, LUMBAR REGION WITHOUT N 10/16/2017 RIZWAN LUEVANO MD Ot M89.38 HYPERTROPHY OF BONE, OTHER SITE 10/19/2017 RIZWAN LUEVANO MD Ot R26.89 OTHER ABNORMALITIES OF GAIT AND MOBILITY 10/22/2017 RIZWAN LUEVANO MD Ot M47.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 OR RADICULOPATHY 10/22/2017 RIZWAN LUEVANO MD Ot M48.04 SPINAL STENOSIS, THORACIC REGION 10/22/2017 RIZWAN LUEVANO MD Ot M48.061 SPINAL STENOSIS, LUMBAR REGION WITHOUT N 10/22/2017 RIZWAN LUEVANO MD Ot M89.38 HYPERTROPHY OF BONE, OTHER SITE 11/01/2017 RIZWAN LUEVANO MD Ot R26.89 OTHER ABNORMALITIES OF GAIT AND MOBILITY 11/22/2017 RIZWAN LUEVANO MD Ot R26.89 OTHER ABNORMALITIES OF GAIT AND MOBILITY 11/29/2017 RIZWAN LUEVANO MD Ot R26.89 OTHER ABNORMALITIES OF GAIT AND MOBILITY 02/25/2018 TOM NICOLAS, BEBA Kitchen Ot 427.89 CARDIAC DYSRHYTHMIAS NEC 02/25/2018 MALIK HINTON MD Ot 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 02/25/2018 MALIK HINTON MD Ot 397.0 TRICUSPID VALVE DISEASE 02/25/2018 MALIK HINTON MD Ot 414.00 CORON ATHEROSCLER NOS TYPE VESSEL, NATIV 02/25/2018 MALIK HINTON MD Ot 427.69 PREMATURE BEATS NEC 02/25/2018 MALIK HINTON MD Ot 428.0 CONGESTIVE HEART FAILURE NOS 02/25/2018 MALIK HINTON MD Ot 793.2 NOSP (ABN) FINDINGS ON RADIOLOGICAL OT 02/25/2018 MALIK HINTON MD Ot 397.0 TRICUSPID VALVE DISEASE 02/25/2018 MALIK HINTON MD Ot 424.0 MITRAL VALVE DISORDER 02/25/2018 MALIK HINTON MD Ot 428.0 CONGESTIVE HEART FAILURE NOS 02/25/2018 MALIK HINTON MD Ot 434.91 CEREBRAL ART OCCLUSION NOS W CEREBRAL IN 02/25/2018 MALIK HINTON MD Ot 435.9 TRANS CEREB ISCHEMIA NOS 02/25/2018 SABINA NICOLAS, LESLIE Alcala Ot 440.20 ATHEROSCLEROSIS [place] ARTERIES EXTREMIT 02/25/2018 DARLING BROWN Ot 272.4 HYPERLIPIDEMIA NEC/NOS 02/25/2018 DARLING BROWN Ot 397.0 TRICUSPID VALVE DISEASE 02/25/2018 DARILNG BROWN Ot 401.9 HYPERTENSION NOS 02/25/2018 DARLING BROWN Ot 414.00 CORON ATHEROSCLER NOS TYPE VESSEL, NATIV 02/25/2018 DARLING BROWN Ot 424.0 MITRAL VALVE DISORDER 02/25/2018 DARLING BROWN Ot 428.0 CONGESTIVE HEART FAILURE NOS 02/25/2018 SAM DALEY DO Ot N39.0 URINARY TRACT INFECTION, SITE NOT SPECIF 02/25/2018 ALIVIA NICOLAS, KEANU Ann Ot N28.9 DISORDER OF KIDNEY AND URETER, UNSPECIFI 02/25/2018 MALIK HINTON MD Ot E78.2 MIXED HYPERLIPIDEMIA 02/25/2018 MALIK HINTON MD Ot G47.33 OBSTRUCTIVE SLEEP APNEA (ADULT) (PEDIATR 02/25/2018 MALIK HINTON MD Ot I11.0 HYPERTENSIVE HEART DISEASE WITH HEART FA 02/25/2018 MALIK HINTON MD Ot I25.10 ATHSCL HEART DISEASE OF [place] CORONARY 02/25/2018 MALIK HINTON MD Ot I50.22 CHRONIC SYSTOLIC (CONGESTIVE) HEART FAIL 02/25/2018 JOSE CRUZ MATHUR NP-C Ot N18.3 CHRONIC KIDNEY DISEASE, STAGE 3 (MODERAT 02/25/2018 JOSE CRUZ MATHUR NP-Ana Ot N28.1 CYST OF KIDNEY, ACQUIRED 02/25/2018 CHLOÉ NICOLAS, RIZWAN Ann Ot M47.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 OR RADICULOPATHY 02/25/2018 RIZWAN LUEVANO MD Ot M48.04 SPINAL STENOSIS, THORACIC REGION 02/25/2018 RIZWAN LUEVANO MD Ot M48.061 SPINAL STENOSIS, LUMBAR REGION WITHOUT N 02/25/2018 CHLOÉ NICOLAS, RIZWAN Ann Ot M89.38 HYPERTROPHY OF BONE, OTHER SITE 02/26/2018 ORVILLE LI MD Ot I70.0 ATHEROSCLEROSIS OF [place] 02/26/2018 ORVILLE LI MD Ot M43.16 SPONDYLOLISTHESIS, LUMBAR REGION 02/26/2018 ORVILLE LI MD Ot M47.817 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 OR RADICULOPATHY 02/26/2018 ORVILLE LI MD Ot M48.062 SPINAL STENOSIS, LUMBAR REGION WITH NEUR 03/19/2018 ORVILLE LI MD Ot I70.0 ATHEROSCLEROSIS OF [place] 03/19/2018 ORVILLE LI MD Ot M43.16 SPONDYLOLISTHESIS, LUMBAR REGION 03/19/2018 ORVILLE LI MD Ot M47.817 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 OR RADICULOPATHY 03/19/2018 ORVILLE LI MD Ot M48.062 SPINAL STENOSIS, LUMBAR REGION WITH NEUR 03/22/2018 JEN NICOLAS, [place] Ann Ot I70.0 ATHEROSCLEROSIS OF [place] 03/22/2018 JEN NICOLAS, [place] A Ot M43.16 SPONDYLOLISTHESIS, LUMBAR REGION 03/22/2018 JEN NICOLAS, [place] Ann Ot M47.817 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 OR RADICULOPATHY 03/22/2018 JEN NICOLAS, [place] A Ot M48.062 SPINAL STENOSIS, LUMBAR REGION WITH NEUR 04/19/2018 JEN NICOLAS, [place] A Ot M43.16 SPONDYLOLISTHESIS, LUMBAR REGION 04/19/2018 JEN NICOLAS, [place] A Ot M48.062 SPINAL STENOSIS, LUMBAR REGION WITH NEUR 04/24/2018 JEN NICOLAS, [place] A Ot M43.16 SPONDYLOLISTHESIS, LUMBAR REGION 04/24/2018 JEN NICOLAS, [place] A Ot M48.062 SPINAL STENOSIS, LUMBAR REGION WITH NEUR 04/30/2018 JEN NICOLAS, [place] A Ot M43.16 SPONDYLOLISTHESIS, LUMBAR REGION 04/30/2018 JEN NICOLAS, [place] A Ot M48.062 SPINAL STENOSIS, LUMBAR REGION WITH NEUR 04/30/2018 JEN NICOLAS, [place] A Ot M43.16 SPONDYLOLISTHESIS, LUMBAR REGION 04/30/2018 JEN NICOLAS, [place] A Ot M48.062 SPINAL STENOSIS, LUMBAR REGION WITH NEUR 05/03/2018 JEN NICOLAS, [place] A Ot M43.16 SPONDYLOLISTHESIS, LUMBAR REGION 05/03/2018 JEN NICOLAS, [place] A Ot M48.062 SPINAL STENOSIS, LUMBAR REGION WITH NEUR 05/20/2018 NIRMALA SAUCEDO APRN Ot D69.6 THROMBOCYTOPENIA, UNSPECIFIED 05/20/2018 NIRMALA SAUCEDO APRN Ot 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 05/20/2018 NIRMALA SAUCEDO APRN Ot E78.5 HYPERLIPIDEMIA, UNSPECIFIED 05/20/2018 NIRMALA SAUCEDO APRN Ot F41.9 ANXIETY DISORDER, UNSPECIFIED 05/20/2018 NIRMALA SAUCEDO APRN Ot G62.9 POLYNEUROPATHY, UNSPECIFIED 05/20/2018 NIRMALA SAUCEDO APRN Ot I12.9 HYPERTENSIVE CHRONIC KIDNEY DISEASE W ST 05/20/2018 NIRMALA SAUCEDO APRN Ot I48.91 UNSPECIFIED ATRIAL FIBRILLATION 05/20/2018 NIRMALA SAUCEDO APRN Ot M10.9 GOUT, UNSPECIFIED 05/20/2018 NIRMALA SAUCEDO APRN Ot M19.90 UNSPECIFIED OSTEOARTHRITIS, UNSPECIFIED 05/20/2018 NIRMALA SAUCEDO APRN Ot N18.3 CHRONIC KIDNEY DISEASE, STAGE 3 (MODERAT 05/20/2018 NIRMALA SAUCEDO APRN Ot N25.81 SECONDARY HYPERPARATHYROIDISM OF RENAL O 05/20/2018 NIRMALA SAUCEDO APRN Ot N28.1 CYST OF KIDNEY, ACQUIRED 06/06/2018 NIRMALA SAUCEDO APRN Ot D69.6 THROMBOCYTOPENIA, UNSPECIFIED 06/06/2018 NIRMALA SAUCEDO APRN Ot 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 06/06/2018 NIRMALA SAUCEDO APRN Ot E78.5 HYPERLIPIDEMIA, UNSPECIFIED 06/06/2018 NIRMALA SAUCEDO APRN Ot F41.9 ANXIETY DISORDER, UNSPECIFIED 06/06/2018 NIRMALA SAUCEDO APRN Ot G62.9 POLYNEUROPATHY, UNSPECIFIED 06/06/2018 NIRMALA SAUCEDO APRN Ot I12.9 HYPERTENSIVE CHRONIC KIDNEY DISEASE W ST 06/06/2018 NIRMALA SAUCEDO APRN Ot I48.91 UNSPECIFIED ATRIAL FIBRILLATION 06/06/2018 NIRMALA SAUCEDO APRN Ot M10.9 GOUT, UNSPECIFIED 06/06/2018 NIRMALA SAUCEDO APRN Ot M19.90 UNSPECIFIED OSTEOARTHRITIS, UNSPECIFIED 06/06/2018 NIRMALA SAUCEDO APRN Ot N18.3 CHRONIC KIDNEY DISEASE, STAGE 3 (MODERAT 06/06/2018 NIRMALA SAUCEDO APRN Ot N25.81 SECONDARY HYPERPARATHYROIDISM OF RENAL O 06/06/2018 NIRMALA SAUCEDO APRN Ot N28.1 CYST OF KIDNEY, ACQUIRED 06/12/2018 NIRMALA SAUCEDO APRN Ot D69.6 THROMBOCYTOPENIA, UNSPECIFIED 06/12/2018 NIRMALA SAUCEDO APRN Ot 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 06/12/2018 NIRMALA SAUCEDO APRN Ot E78.5 HYPERLIPIDEMIA, UNSPECIFIED 06/12/2018 NIRMALA SAUCEDO APRN Ot F41.9 ANXIETY DISORDER, UNSPECIFIED 06/12/2018 NIRMALA SAUCEDO APRN Ot G62.9 POLYNEUROPATHY, UNSPECIFIED 06/12/2018 NIRMALA SAUCEDO APRN Ot I12.9 HYPERTENSIVE CHRONIC KIDNEY DISEASE W ST 06/12/2018 NIRMALA SAUCEDO APRN Ot I48.91 UNSPECIFIED ATRIAL FIBRILLATION 06/12/2018 NIRMALA SAUCEDO WATER METER INSTALLER Ot M10.9 GOUT, UNSPECIFIED 06/12/2018 NIRMALA SAUCEDO APRN Ot M19.90 UNSPECIFIED OSTEOARTHRITIS, UNSPECIFIED 06/12/2018 NIRMALA SAUCEDO APRN Ot N18.3 CHRONIC KIDNEY DISEASE, STAGE 3 (MODERAT 06/12/2018 NIRMALA SAUCEDO WATER METER INSTALLER Ot N25.81 SECONDARY HYPERPARATHYROIDISM OF RENAL O 06/12/2018 NIRMALA SAUCEDO W[employer] METER INSTALLER Ot N28.1 CYST OF KIDNEY, ACQUIRED 06/24/2018 ORVILLE LI MD Ot M43.16 SPONDYLOLISTHESIS, LUMBAR REGION 06/24/2018 ORVILLE LI MD Ot M48.062 SPINAL STENOSIS, LUMBAR REGION WITH NEUR 06/25/2018 ORVILLE LI MD Ot M43.16 SPONDYLOLISTHESIS, LUMBAR REGION 06/25/2018 ORVILLE LI MD Ot M48.062 SPINAL STENOSIS, LUMBAR REGION WITH NEUR 07/29/2018 LUIS E NICOLAS, Jayant MILLER Ot I08.1 RHEUMATIC DISORDERS OF BOTH MITRAL AND T 07/29/2018 LUIS E NICOLAS, Jayant MILLER Ot I25.5 ISCHEMIC CARDIOMYOPATHY 07/29/2018 LUIS E NICOLAS, Jayant MILLER Ot I47.2 VENTRICULAR TACHYCARDIA 07/29/2018 LUIS E NICOLAS, Jayant MILLER Ot I50.22 CHRONIC SYSTOLIC (CONGESTIVE) HEART FAIL 07/30/2018 ORVILLE LI MD Ot M43.16 SPONDYLOLISTHESIS, LUMBAR REGION 07/30/2018 ORVILLE LI MD Ot M48.062 SPINAL STENOSIS, LUMBAR REGION WITH NEUR 07/31/2018 ORVILLE LI MD Ot M43.16 SPONDYLOLISTHESIS, LUMBAR REGION 07/31/2018 JEN NICOLAS, MELISSAYLON A Ot M48.062 SPINAL STENOSIS, LUMBAR REGION WITH NEUR 08/16/2018 Jayant KIMBROUGH MD Ot I08.1 RHEUMATIC DISORDERS OF BOTH MITRAL AND T 08/16/2018 Jayant KIMBROUGH MD Ot I25.5 ISCHEMIC CARDIOMYOPATHY 08/16/2018 Jayant KIMBROUGH MD Ot I47.2 VENTRICULAR TACHYCARDIA 08/16/2018 Jayant KIMBROUGH MD Ot I50.22 CHRONIC SYSTOLIC (CONGESTIVE) HEART FAIL 08/20/2018 Jayant KIMBROUGH MD Ot I25.5 ISCHEMIC CARDIOMYOPATHY 08/20/2018 Jayant KIMBROUGH MD Ot Z01.812 ENCOUNTER FOR PREPROCEDURAL LABORATORY E 08/20/2018 Jayant KIMBROUGH MD Ot Z11.2 ENCOUNTER FOR SCREENING FOR OTHER BACTER 08/20/2018 Jayant KIMBROUGH MD Ot Z95.0 PRESENCE OF CARDIAC PACEMAKER 08/23/2018 Jayant KIMBROUGH MD Ot I08.1 RHEUMATIC DISORDERS OF BOTH MITRAL AND T 08/23/2018 Jayant KIMBROUGH MD Ot I25.5 ISCHEMIC CARDIOMYOPATHY 08/23/2018 Jayant KIMBROUGH MD Ot I47.2 VENTRICULAR TACHYCARDIA 08/23/2018 Jayant KIMBROUGH MD Ot I50.22 CHRONIC SYSTOLIC (CONGESTIVE) HEART FAIL 09/09/2018 Jayant KIMBROUGH MD Ot I25.5 ISCHEMIC CARDIOMYOPATHY 09/09/2018 Jayant KIMBROUGH MD Ot Z01.812 ENCOUNTER FOR PREPROCEDURAL LABORATORY E 09/09/2018 Jayant KIMBROUGH MD Ot Z11.2 ENCOUNTER FOR SCREENING FOR OTHER BACTER 09/09/2018 Jayant KIMBROUGH MD Ot Z95.0 PRESENCE OF CARDIAC PACEMAKER 09/17/2018 Jayant KIMBROUGH MD Ot I25.5 ISCHEMIC CARDIOMYOPATHY 09/17/2018 Jayant KIMBROUGH MD Ot Z01.812 ENCOUNTER FOR PREPROCEDURAL LABORATORY E 09/17/2018 Jayant KIMBROUGH MD Ot Z11.2 ENCOUNTER FOR SCREENING FOR OTHER BACTER 09/17/2018 Jayant KIMBROUGH MD Ot Z95.0 PRESENCE OF CARDIAC PACEMAKER 09/18/2018 CLAUDIA JOHNSON DO Ot Z01.818 ENCOUNTER FOR OTHER PREPROCEDURAL EXAMIN Procedures Code Description Performed By Performed On 83.64 OTHER SUTURE OF TENDON 11/08/2009 84.11 10/20/2011 [id number] 12/29/2015 [id number] REPLACE OF L KNEE JT WITH SYNTH SUB, BEATA 12/29/2015 Results Test Result Range Automated blood complete blood count (hemogram) panel - 03/01/16 09:53 Blood leukocytes automated count (number/volume) 5.5 10*3/uL 4.3-11.0 Blood erythrocytes automated count (number/volume) 4.28 10*6/uL 4.35-5.85 Venous blood hemoglobin measurement (mass/volume) 13.5 g/dL 13.3-17.7 Blood hematocrit (volume fraction) 41 % 40-54 Automated erythrocyte mean corpuscular volume 95 [foz_us] 80-99 Automated erythrocyte mean corpuscular hemoglobin (mass per erythrocyte) 32 pg 25-34 Automated erythrocyte mean corpuscular hemoglobin concentration measurement ( mass/volume) 33 g/dL 32-36 Automated erythrocyte distribution width ratio 15.7 % 10.0-14.5 Automated blood platelet count (count/volume) 148 10*3/uL 130-400 Automated blood platelet mean volume measurement 11.4 [foz_us] 7.4-10.4 PT panel in platelet poor plasma by coagulation assay - 03/01/16 09:53 Prothrombin time (PT) in platelet poor plasma by coagulation assay 13.2 s 12.2-14.7 INR in platelet poor plasma or blood by coagulation assay 1.0 0.8-1.4 Activated partial thromboplastin time (aPTT) in platelet poor plasma bycoagulation assay - 03/01/16 09:53 Activated partial thromboplastin time (aPTT) in platelet poor plasma bycoagulation assay 25 s 24-35 Comprehensive metabolic panel - 03/01/16 09:53 Serum or plasma sodium measurement (moles/volume) 140 mmol/L 135-145 Serum or plasma potassium measurement (moles/volume) 4.6 mmol/L 3.6-5.0 Serum or plasma chloride measurement (moles/volume) 110 mmol/L 98-107 Carbon dioxide 23 mmol/L 21-32 Serum or plasma anion gap determination (moles/volume) 7 mmol/L 5-14 Serum or plasma urea nitrogen measurement (mass/volume) 22 mg/dL 7-18 Serum or plasma creatinine measurement (mass/volume) 1.32 mg/dL 0.60-1.30 Serum or plasma urea nitrogen/creatinine mass ratio 17 NRG Serum or plasma creatinine measurement with calculation of estimated glomerular filtration rate 53 NRG Serum or plasma glucose measurement (mass/volume) 119 mg/dL 70-105 Serum or plasma calcium measurement (mass/volume) 9.5 mg/dL 8.5-10.1 Serum or plasma total bilirubin measurement (mass/volume) 0.9 mg/dL 0.1-1.0 Serum or plasma alkaline phosphatase measurement (enzymatic activity/volume) 84 U/L 40-136 Serum or plasma aspartate aminotransferase measurement (enzymatic activity/ volume) 19 U/L 5-34 Serum or plasma alanine aminotransferase measurement (enzymatic activity/volume ) 23 U/L 0-55 Serum or plasma protein measurement (mass/volume) 6.5 g/dL 6.4-8.2 Serum or plasma albumin measurement (mass/volume) 3.9 g/dL 3.2-4.5 Lipid 1996 panel - 03/01/16 09:53 Serum or plasma triglyceride measurement (mass/volume) 149 mg/dL <150 Serum or plasma cholesterol measurement (mass/volume) 102 mg/dL < 200 Serum or plasma cholesterol in HDL measurement (mass/volume) 26 mg/ dL 40-60 Cholesterol in LDL [mass/volume] in serum or plasma by direct assay 51 mg/dL 1-129 Serum or plasma cholesterol in VLDL measurement (mass/volume) 30 mg/ dL 5-40 Methicillin resistant Staphylococcus aureus (MRSA) screening culture - 09:53 Methicillin resistant Staphylococcus aureus (MRSA) screening culture NEG NR Automated blood complete blood count (hemogram) panel - 05/16/17 09:20 Blood leukocytes automated count (number/volume) 5.9 10*3/uL 4.3-11.0 Blood erythrocytes automated count (number/volume) 4.52 10*6/uL 4.35-5.85 Venous blood hemoglobin measurement (mass/volume) 14.8 g/dL 13.3-17.7 Blood hematocrit (volume fraction) 44 % 40-54 Automated erythrocyte mean corpuscular volume 98 [foz_us] 80-99 Automated erythrocyte mean corpuscular hemoglobin (mass per erythrocyte) 33 pg 25-34 Automated erythrocyte mean corpuscular hemoglobin concentration measurement ( mass/volume) 34 g/dL 32-36 Automated erythrocyte distribution width ratio 14.5 % 10.0-14.5 Automated blood platelet count (count/volume) 106 10*3/uL 130-400 Automated blood platelet mean volume measurement 11.5 [foz_us] 7.4-10.4 PT panel in platelet poor plasma by coagulation assay - 05/16/17 09:20 Prothrombin time (PT) in platelet poor plasma by coagulation assay 13.7 s 12.2-14.7 INR in platelet poor plasma or blood by coagulation assay 1.0 0.8-1.4 Activated partial thromboplastin time (aPTT) in platelet poor plasma bycoagulation assay - 05/16/17 09:20 Activated partial thromboplastin time (aPTT) in platelet poor plasma bycoagulation assay 26 s 24-35 Comprehensive metabolic panel - 05/16/17 09:20 Serum or plasma sodium measurement (moles/volume) 139 mmol/L 135-145 Serum or plasma potassium measurement (moles/volume) 4.6 mmol/L 3.6-5.0 Serum or plasma chloride measurement (moles/volume) 106 mmol/L 98-107 Carbon dioxide 22 mmol/L 21-32 Serum or plasma anion gap determination (moles/volume) 11 mmol/L 5-14 Serum or plasma urea nitrogen measurement (mass/volume) 27 mg/dL 7-18 Serum or plasma creatinine measurement (mass/volume) 1.45 mg/dL 0.60-1.30 Serum or plasma urea nitrogen/creatinine mass ratio 19 NRG Serum or plasma creatinine measurement with calculation of estimated glomerular filtration rate 48 NRG Serum or plasma glucose measurement (mass/volume) 118 mg/dL 70-105 Serum or plasma calcium measurement (mass/volume) 9.9 mg/dL 8.5-10.1 Serum or plasma total bilirubin measurement (mass/volume) 1.6 mg/dL 0.1-1.0 Serum or plasma alkaline phosphatase measurement (enzymatic activity/volume) 85 U/L 40-136 Serum or plasma aspartate aminotransferase measurement (enzymatic activity/ volume) 21 U/L 5-34 Serum or plasma alanine aminotransferase measurement (enzymatic activity/volume ) 27 U/L 0-55 Serum or plasma protein measurement (mass/volume) 7.0 g/dL 6.4-8.2 Serum or plasma albumin measurement (mass/volume) 4.2 g/dL 3.2-4.5 Methicillin resistant Staphylococcus aureus (MRSA) screening culture - 09:20 Methicillin resistant Staphylococcus aureus (MRSA) screening culture NEG [facility] [id number] - 09/20/17 11:52 Serum or plasma urea nitrogen measurement (mass/volume) 21 mg/dL 7-18 Serum or plasma creatinine measurement (mass/volume) 1.45 mg/dL 0.60-1.30 Serum or plasma urea nitrogen/creatinine mass ratio 14 [facility] Serum or plasma creatinine measurement with calculation of estimated glomerular filtration rate 48 [facility] Automated blood complete blood count (hemogram) panel - 08/15/18 08:27 Blood leukocytes automated count (number/volume) 5.5 10*3/uL 4.3-11.0 Blood erythrocytes automated count (number/volume) 4.22 10*6/uL 4.35-5.85 Venous blood hemoglobin measurement (mass/volume) 13.7 g/dL 13.3-17.7 Blood hematocrit (volume fraction) 42 % 40-54 Automated erythrocyte mean corpuscular volume 99 [foz_us] 80-99 Automated erythrocyte mean corpuscular hemoglobin (mass per erythrocyte) 33 pg 25-34 Automated erythrocyte mean corpuscular hemoglobin concentration measurement ( mass/volume) 33 g/dL 32-36 Automated erythrocyte distribution width ratio 15.0 % 10.0-14.5 Automated blood platelet count (count/volume) 120 10*3/uL 130-400 Automated blood platelet mean volume measurement 10.9 [foz_us] 7.4-10.4 PT panel in platelet poor plasma by coagulation assay - 08/15/18 08:27 Prothrombin time (PT) in platelet poor plasma by coagulation assay 14.3 s 12.2-14.7 INR in platelet poor plasma or blood by coagulation assay 1.1 0.8-1.4 Activated partial thromboplastin time (aPTT) in platelet poor plasma bycoagulation assay - 08/15/18 08:27 Activated partial thromboplastin time (aPTT) in platelet poor plasma bycoagulation assay 27 s 24-35 Comprehensive metabolic panel - 08/15/18 08:27 Serum or plasma sodium measurement (moles/volume) 140 mmol/L 135-145 Serum or plasma potassium measurement (moles/volume) 4.3 mmol/L 3.6-5.0 Serum or plasma chloride measurement (moles/volume) 103 mmol/L 98-107 Carbon dioxide 27 mmol/L 21-32 Serum or plasma anion gap determination (moles/volume) 10 mmol/L 5-14 Serum or plasma urea nitrogen measurement (mass/volume) 38 mg/dL 7-18 Serum or plasma creatinine measurement (mass/volume) 2.23 mg/dL 0.60-1.30 Serum or plasma urea nitrogen/creatinine mass ratio 17 NRG Serum or plasma creatinine measurement with calculation of estimated glomerular filtration rate 29 NRG Serum or plasma glucose measurement (mass/volume) 93 mg/dL 70-105 Serum or plasma calcium measurement (mass/volume) 9.5 mg/dL 8.5-10.1 Serum or plasma total bilirubin measurement (mass/volume) 1.2 mg/dL 0.1-1.0 Serum or plasma alkaline phosphatase measurement (enzymatic activity/volume) 78 U/L 40-136 Serum or plasma aspartate aminotransferase measurement (enzymatic activity/ volume) 26 U/L 5-34 Serum or plasma alanine aminotransferase measurement (enzymatic activity/volume ) 34 U/L 0-55 Serum or plasma protein measurement (mass/volume) 7.2 g/dL 6.4-8.2 Serum or plasma albumin measurement (mass/volume) 4.2 g/dL 3.2-4.5 CALCIUM CORRECTED 9.3 mg/dL 8.5-10.1 Methicillin resistant Staphylococcus aureus (MRSA) screening culture - 08:27 Methicillin resistant Staphylococcus aureus (MRSA) screening culture NEG NRG Encounters ACCT No. Visit Date/Time Discharge Status Pt. Type Provider Facility Loc./Unit Complaint [id number] 09/18/2018 08:53:00 09/18/2018 23:59:59 CLS Preadmit NIRMALA SAUCEDO APRN [facility] RAD STAGE 3 CKD [id number] 09/16/2018 14:00:00 09/16/2018 23:59:59 CLS Preadmit CLAUDIA JOHNSON DO [facility] SDC SCREENING; CYST ON BACK [id number] 09/12/2018 05:28:00 09/12/2018 13:52:00 DIS Outpatient CLAUDIA JOHNSON DO [facility] PREOP SCREENING COLONOSCOPY AND EXCISION CYST ON BACK [id number] 08/15/2018 07:44:00 08/15/2018 23:59:59 CLS Outpatient Jayant KIMBROUGH MD [facility] CATH PACEMAKER DEPENDENT, ISCHEMIC CARDIOMYOPATHY [id number] 07/31/2018 00:12:00 07/31/2018 23:59:59 CLS Preadmit ORVILLE LI MD [facility] REHAB LUMBAR SPONDYLOTHESIS; SPINAL STENOSIS;NEUROGENIC [id number] 07/11/2018 10:30:00 07/30/2018 00:01:00 DIS Outpatient ORVILLE LI MD [facility] REHAB LUMBAR SPONDYLOTHESIS; SPINAL STENOSIS;NEUROGENIC [id number] 07/26/2018 13:12:00 07/26/2018 23:59:59 CLS Outpatient Jayant KIMBROUGH MD [facility] CARD CHF,ISCHEMIC CARDIOMYOPATHY, NSVT [id number] 05/16/2018 09:04:00 05/16/2018 23:59:59 CLS Outpatient NIRMALA SAUCEDO APRN [facility] RAD CHRONIC KIDNEY DISEASE [id number] 04/25/2018 15:04:00 04/30/2018 08:10:00 DIS [facility]; SPINAL STENOSIS;NEUROGENIC [id number] 02/25/2018 16:08:00 02/25/2018 23:59:59 CLS Outpatient ORVILLE LI MD [facility] RAD SPINAL STENOSIS [id number] 11/29/2017 09:23:00 11/29/2017 11:25:00 DIS Outpatient RIZWAN LUEVANO MD [facility] REHAB GAIT INSTABILITY [id number] 09/20/2017 11:38:00 09/20/2017 23:59:59 CLS Outpatient RIZWAN LUEVANO MD [facility] RAD LEG NUMBNESS [id number] 09/20/2017 09:15:00 09/20/2017 23:59:59 CLS Preadmit RIZWAN LUEVANO MD [facility] RAD LEG NUMBNESS [id number] 06/19/2017 10:28:00 06/19/2017 23:59:59 CLS Outpatient JOSE CRUZ MATHUR [facility] RAD N18.3 CHRONIC KIDNEY DISEASE [id number] 05/16/2017 08:49:00 05/16/2017 16:45:00 DIS Outpatient MALIK HINTON MD [facility] CATH PVD,DM,CAD [id number] 04/25/2017 11:46:00 04/25/2017 23:59:59 CLS Outpatient MALIK HINTON MD [facility] CARD CAD, I25.10 [id number] 04/18/2017 09:32:00 04/18/2017 23:59:59 CLS Outpatient KEANU BUNCH MD [facility] RAD BPH [id number] 05/04/2016 13:37:00 05/04/2016 14:48:00 DIS Outpatient SAM DALEY DO [facility] REHAB LEFT TKA [id number] 04/27/2016 13:04:00 04/28/2016 17:00:00 DIS Outpatient SAM DALEY DO [facility] REHAB LEFT TKA [id number] 04/06/2016 13:00:00 04/10/2016 00:01:00 DIS Outpatient SAM DALEY DO [facility] REHAB LEFT TKA [id number] 04/08/2016 00:09:00 04/08/2016 23:59:59 CLS Preadmit SAM DALEY DO [facility] 4TH RCR IV MEDICATION THERAPY [id number] 01/11/2016 20:34:00 04/07/2016 00:01:00 DIS Outpatient SAM DALEY DO [facility] 4TH RCR IV MEDICATION THERAPY [id number] 03/01/2016 08:51:00 03/02/2016 11:45:00 DIS Outpatient MALIK HINTON MD [facility] CATH BRENDEN,CAD,HTN,HLP [id number] 01/03/2016 16:34:00 01/07/2016 17:25:00 DIS Inpatient LESLIE MUHAMMAD MD [facility] 4TH SWB, LT KNEE OSTEOARTHRITIS,TOTAL KNEE REPLACEMENT [id number] 12/29/2015 07:50:00 01/03/2016 16:21:00 DIS Inpatient LESLIE MUHAMMAD MD [facility] 4TH LEFT KNEE OSTEOARTHRITIS [id number] 12/22/2015 08:01:00 12/22/2015 09:30:00 DIS Outpatient LESLIE MUHAMMAD MD [facility] PREOP LEFT KNEE OSTEOARTHRITIS [id number] 11/18/2014 20:10:00 11/19/2014 18:56:00 DIS Outpatient MALIK HINTON MD [facility] CATH INT DEFIB FIRED X2 [id number] 08/24/2014 07:45:00 08/24/2014 23:59:59 CLS Preadmit MALIK HINTON MD [facility] CARD CAD,HTN,HLP [id number] 08/14/2014 08:30:00 08/14/2014 23:59:59 CLS Outpatient DARLING BROWN [facility] CARD CAD,CHF,HTN, HLP [id number] 06/29/2014 10:44:00 06/29/2014 23:59:59 CLS Outpatient BEBA SANTOS MD [facility] CARD BRADYCARDIA [id number] 01/06/2014 13:08:00 01/06/2014 23:59:59 CLS Outpatient LESLIE MUHAMMAD MD [facility] RAD VASCULAR CLAUDICATION [id number] 07/09/2013 08:54:00 07/09/2013 23:59:59 CLS Outpatient MALIK HINTON MD [facility] CARD TIA,CVA [id number] 05/27/2013 02:41:00 05/30/2013 15:30:00 DIS Inpatient TOM NICOLAS, BEBA Kitchen [facility] 4TH HEADACHE,HYPOTENSION,UTI, RENAL INSUFFICIENCY,DIZZI [id number] 02/17/2013 07:24:00 02/17/2013 23:59:59 CLS Outpatient MALIK HINTON MD [facility] CARD CHS,CAD,PVC [id number] 09/23/2018 13:00:00 PEN Preadmit CLAUDIA JOHNSON DO [facility] SCREENING, CYST ON BACK [id number] 06/29/2014 10:43:00 Document Registration [id number] 06/29/2014 10:43:00 Document Registration [id number] 06/29/2014 10:43:00 Document Registration [id number] 06/29/2014 10:43:00 Document Registration [id number] 06/29/2014 10:43:00 Document Registration [id number] 02/23/2012 05:38:00 Document Registration [id number] 02/19/2012 12:38:00 Document Registration [id number] 01/26/2012 08:08:00 Document Registration [id number] 12/04/2011 10:28:00 Document Registration [id number] 10/17/2011 09:15:00 Document Registration [id number] 09/19/2011 06:01:00 Document Registration [id number] 09/08/2011 05:29:00 Document Registration [id number] 08/25/2011 05:32:00 Document Registration [id number] 08/21/2011 14:28:00 Document Registration [id number] 03/23/2011 05:31:00 Document Registration [id number] 03/20/2011 14:26:00 Document Registration [id number] 11/29/2010 08:20:00 Document Registration [id number] 08/10/2010 05:39:00 Document Registration [id number] 11/05/2009 08:18:00 Document Registration [id number] 11/01/2009 08:37:00 Document Registration [id number] 04/09/2009 07:52:00 Document Registration [id number] 04/05/2009 07:41:00 Document Registration [id number] 11/23/2014 08:54:29 ACT Document Registration [id number] 05/03/2017 16:13:05 05/03/2017 23:59:59 [facility] Outpatient
[2018-09-23] MEDS ORDERED: ceFAZolin 2 GM IV Premixed 50 ML IV ONE (11:30)
[2018-09-23] MEDS ORDERED: LIDOCAINE 1% INJ 20 ML 20 ML VIAL ONE (11:34)
[2018-09-23] MEDS ORDERED: BUP/EPI 0.5% 1:200,000 (SENSORCAINE) 30 ML VIAL ONE (11:34)
--- NOTE | 2018-09-23 12:38 | Progress Note-Pre Operative ---
Pre-Operative Progress Note H&P Reviewed The H&P was reviewed, patient examined and no changes noted. Date Seen by Provider: Sep 23, 2018 Time Seen by Provider: 12:36 Date H&P Reviewed: Sep 23, 2018 Time H&P Reviewed: 12:36 Pre-Operative Diagnosis: cyst back, screening colonoscopy CLAUDIA JOHNSON DO Sep 23, 2018 12:37
[2018-09-23] MEDS ORDERED: fentaNYL INJECTION 100 MCG/2 ML AMP ONE (12:42)
[2018-09-23] MEDS ORDERED: PROPOFOL INJECTION 50 ML IV ONE (12:42)
[2018-09-23] MEDS ORDERED: MIDAZOLAM 2 MG/2 ML (VERSED) VIAL ONE (13:11)
[2018-09-23] MEDS ORDERED: KETAMINE HCL 100 MG/ML 5 ML VIAL ONE (13:21)
[2018-09-23] MEDS ORDERED: PHENYLEPHRINE 100 MCG/ML 10 ML (ANESTHESIA) SYR ONE (14:37)
[2018-09-23] MEDS ORDERED: morphine INJ 10 MG/ML 1ML (SYR OR VIAL) IVP ONE (15:00)
[2018-09-23] MEDS ORDERED: ONDANSETRON 4 MG/2 ML (SDV) Z0FRAN IVP PRN (15:00)
--- NOTE | 2018-09-23 15:01 | Anesthesia-General Post-Op ---
MAC Patient Condition Mental Status/LOC: Same as Preop Cardiovascular: Satisfactory Nausea/Vomiting: Absent Respiratory: Satisfactory Pain: Controlled Complications: Absent Post Op Complications Complications None Follow Up Care/Instructions Patient Instructions None needed. Anesthesiology Discharge Order Discharge Order Patient is doing well, no complaints, stable vital signs, no apparent adverse anesthesia problems. RED CHACON DO Sep 23, 2018 15:01
[2018-09-23 15:15] VITALS: BP 91/70
--- NOTE | 2018-09-23 15:51 | Discharge Inst-Simple/Standard ---
Discharge Inst-Standard Patient Instructions/Follow Up Plan of Care/Instructions/FU: 2 weeks Martha Activity as Tolerated: No Discharge Diet: Regular Diet Other Inst to Patient Follow up Appt: Make appointment for 2 week. Instructions: No strenuous activity. May shower in 24 hours, no tub bath or soaking. Use incentive spirometer at home as directed. No Smoking Skin/Wound Care: May remove bandages in 24 hours, keep clean and dry. Symptoms to Report: Appetite Changes, Extremity Discoloration, Numbness/Tingling, Swelling Increased , Bleeding Excessive, Eyesight Changes, Pain Increased, Urine Color Change, Constipation(Persistent), Fever over 101 degree F, Pain/Pressure in chest, Urinating Difficulty, Cough Up/Vomit Blood, Heart Beat Irreg/Pounding, Pain/ Pressure in jaw, Vaginal Bleeding Increase, Cramps in feet or legs, Lightheadedness, Pain/Pressure in shoulder, Diarrhea(Persistent), Memory Changes Suddenly, Questions/Concerns, Weight gain consecutive days, Dizziness/ Fainting, Nausea/Vomiting, Shortness of Breath, Weight gain over 2 pounds If questions or concerns contact your physician Or seek help at emergency department. CLAUDIA JOHNSON DO Sep 23, 2018 15:51
[2018-09-23 15:55] VITALS: BP 105/75
[2018-09-23 16:07] VITALS: BP 105/75
--- NOTE | 2018-09-23 16:07 | NUR ---
HAS BEEN PASSING FLATUS OCCASIONALLY AND TAKING PO FLUIDS WITHOUT PROBLEM THROUGHOUT RECOVERY. ALERT, CHEERFUL, DENIES PAIN OR NAUSEA. OPSITE OVER GAUZE DRESSING REMAINS D/I TO SURGICAL SITE ON RIGHT SIDE OF BACK. HAS BEEN UP TO BR, GAIT STEADY, REQUESTING DISMISSAL.
--- NOTE | 2018-09-23 17:19 | Progress Note-Post Operative ---
Post-Operative Progess Note Surgeon (s)/Lining Folder (s) Surgeon CALUDIA JOHNSON DO Lining Folder: na Pre-Operative Diagnosis cyst back, screening colonoscopy Post-Operative Diagnosis cyst back, colon polyps, diverticulosis Procedure & Operative Findings Date of Procedure 09/23/18 Procedure Performed/Findings excision cyst back, colonoscopy c hot bx polypectomy x 5 snare polypectomy x1 Anesthesia Type mac Estimated Blood Loss Estimated blood loss (mL): min Specimens/Packing Specimens Removed cyst back, colon polyps CLAUDIA JOHNSON DO Sep 23, 2018 17:19
--- NOTE | 2018-09-24 00:57 | OPERATIVE REPORT ---
DATE OF SERVICE: 09/23/2018 PREOPERATIVE DIAGNOSES: Cyst on back and screening colonoscopy. POSTOPERATIVE DIAGNOSES: Cyst of back and diverticulosis and colon polyps. PROCEDURE: Excision of cyst of back 2.8 x 6.5 cm, colonoscopy with hot biopsy polypectomy x5 and snare polypectomy x1. SURGEON: Claudia Thomas DO. ANESTHESIA: MAC. ESTIMATED BLOOD LOSS: Minimal. COMPLICATIONS: None. INDICATIONS: The patient is a 73-year-old male with a cyst on his back, which he would like to have it removed. He is also needing screening colonoscopy. He understands risks and benefits of procedures and wished to proceed with procedure. Consent was signed in the chart. DESCRIPTION OF PROCEDURE: The patient was taken to the operating suite, placed in left lateral recumbent position. Timeout was performed. Local anesthetic was used to infiltrate around the cyst. An elliptical incision measuring 2.8 x 6.5 cm was made around the skin cyst removing skin and subcutaneous tissues. Cautery was used to dissect down through the subcutaneous layer removing the skin and subcutaneous tissue. Hemostasis was achieved. The skin was then closed using 3-0 Prolene in a simple running fashion. The area was washed and dried and sterile bandage was applied. The patient had a colonoscopy performed. Digital rectal exam was performed. There were no palpable polyps, masses or ulcerations. Scope was inserted in the rectum and advanced all the way to the cecum with minimal difficulty. Prep was adequate with irrigation and suction. Within the cecum, a small polyp was present, which hot biopsy polypectomy was performed. Scope was then continuously retracted back and in the ascending colon, another small polyp was present, which hot biopsy polypectomy was performed. Scope was continuously retracted back and in the hepatic flexure, another small polyp was present, which hot biopsy polypectomy was performed. Scope was continuously retracted back and in the descending colon, there was a little bit larger polyp visualized and snare polypectomy was performed. This was obtained for specimen. Scope was then continuously retracted back into the sigmoid colon where we started encountering a small amount of diverticulosis present. Another polyp was present, which hot biopsy polypectomy was performed. Scope was continuously retracted back into the rectum where another polyp was present, which hot biopsy polypectomy was performed. The scope was then retroflexed, noting no other pathology. Scope was returned to its normal position, slowly withdrawn until completely removed. The patient tolerated procedure well without any complications. He was taken to recovery room in stable condition. RECOMMENDATIONS: The patient will follow up in 2 weeks to have the sutures removed and discuss pathology results. We would recommend repeat colonoscopy in 3 to 5 years if benefits outweigh the risks. The patient was also recommended high fiber diet due to diverticulosis. Job ID: [id number] DocumentID: [id number] Dictated Date: 09/23/2018 17:13:38 [employer]ifier Servicer Date: 09/24/2018 00:56:26 Dictated By: CLAUDIA THOMAS DO
--- NOTE | 2018-09-27 10:00 | Physician Query-Final Dx ---
Final Diagnosis Give Final Diagnosis Please give Final Diagnosis VANESSA LEBLANC Sep 27, 2018 10:00
== END 2018-09-23 16:07 | disposition home or self-care (01) ==
LOC: SDC 10:57
PROVIDERS: ATTEND Surgery
DX: Z12.11 Encounter for screening for malignant neoplasm of colon (principal); D12.0 Benign neoplasm of cecum; D12.3 Benign neoplasm of transverse colon; D12.4 Benign neoplasm of descending colon; K63.5 Polyp of colon; K62.1 Rectal polyp; K57.30 Diverticulosis of large intestine without perforation or abscess without bleeding; L72.0 Epidermal cyst; Z11.2 Encounter for screening for other bacterial diseases; I25.10 Atherosclerotic heart disease of native coronary artery without angina pectoris; I13.0 Hypertensive heart and chronic kidney disease with heart failure and stage 1 through stage 4 chronic kidney disease, or unspecified chronic kidney disease; I50.9 Heart failure, unspecified; N18.9 Chronic kidney disease, unspecified; E78.2 Mixed hyperlipidemia; E11.9 Type 2 diabetes mellitus without complications; G25.81 Restless legs syndrome; G47.33 Obstructive sleep apnea (adult) (pediatric); I73.9 Peripheral vascular disease, unspecified; I25.5 Ischemic cardiomyopathy; I27.20 Pulmonary hypertension, unspecified; E66.9 Obesity, unspecified; Z68.35 Body mass index [BMI] 35.0-35.9, adult; Z79.899 Other long term (current) drug therapy; Z89.411 Acquired absence of right great toe; Z89.421 Acquired absence of other right toe(s); Z95.810 Presence of automatic (implantable) cardiac defibrillator; Z95.1 Presence of aortocoronary bypass graft; Z95.5 Presence of coronary angioplasty implant and graft; Z96.652 Presence of left artificial knee joint
CPT/HCPCS: 82962; 87081

== ENCOUNTER → 2018-10-15 | Outpatient (CLI) | payer MEDICARE, OTHER ==
--- NOTE | 2018-10-15 17:21 | Diagnostic Imaging Report ---
PROCEDURE: CT head without contrast. TECHNIQUE: Multiple contiguous axial images were obtained through the brain without the use of intravenous contrast. INDICATION: Falls and confusion. COMPARISON: Comparison is made with prior head CT from 05/26/2013. FINDINGS: There is a large hematoma identified in the right frontal scalp. Ventricles and sulci are stable in appearance. No sulcal effacement or midline shift is seen. No acute intra-axial or extra-axial hemorrhage is detected. Cisterns are patent. Visualized paranasal sinuses are clear. IMPRESSION: Large right frontal scalp hematoma. No acute intracranial process is detected. Dictated by: Dictated on workstation # [id number]
== END ==
LOC: RAD 16:16
PROVIDERS: ATTEND Family Medicine
DX: S00.03XA Contusion of scalp, initial encounter (principal); R29.6 Repeated falls; R41.0 Disorientation, unspecified
CPT/HCPCS: 70450

== ENCOUNTER → 2018-10-15 | Outpatient (CLI) | payer MEDICARE, OTHER ==
--- NOTE | 2018-10-15 17:33 | Diagnostic Imaging Report ---
PROCEDURE: US Renal Bilateral. TECHNIQUE: Multiple real-time grayscale images were obtained over the kidneys in various projections bilaterally. INDICATION: Stage III chronic kidney disease, renal cysts. FINDINGS: The previous renal ultrasound exam performed on 05/16/2018 noted multiple cysts associated with both kidneys. On this exam, these cysts are again evident. As on the previous study, there are several prominent cysts associated with the left kidney. The largest measures 6.7 x 5.7 x 6.8 cm. This is similar in size with the previous exam. There are few much smaller cysts on the right. There is still no sign of solid renal mass nor is there is any evidence for hydronephrosis. The renal cortex on the right is well preserved and normal in echogenicity. The renal cortex of the left kidney is not well visualized. There are few cysts associated with the liver as well. The largest of these measures 2.1 x 1.7 x 2.0 cm. The urinary bladder was imaged during the course of the exam. The bladder is only partial filled and consequently not well evaluated. There is no obvious bladder abnormality evident. Both ureteral jets were noted. The prevoid bladder blood volume was 536 cc. Following voiding, there was still approximately 400 cc of urine present within the bladder. IMPRESSION: 1. The renal cysts seen previously are again evident and do not appear to have changed significantly. There is no acute abnormality of either kidney. 2. There are also a few cysts within the liver. 3. There is no obvious bladder abnormality but there is poor clearing of the urine from the bladder following voiding. Dictated by: Dictated on workstation # [id number]
== END ==
LOC: RAD 16:12
PROVIDERS: ATTEND Nurse Practitioner
DX: E11.22 Type 2 diabetes mellitus with diabetic chronic kidney disease (principal); I12.9 Hypertensive chronic kidney disease with stage 1 through stage 4 chronic kidney disease, or unspecified chronic kidney disease; N18.3 Chronic kidney disease, stage 3 (moderate); N28.1 Cyst of kidney, acquired; K76.89 Other specified diseases of liver; E78.5 Hyperlipidemia, unspecified; I48.91 Unspecified atrial fibrillation; M19.90 Unspecified osteoarthritis, unspecified site; F41.9 Anxiety disorder, unspecified; G62.9 Polyneuropathy, unspecified; E66.9 Obesity, unspecified; D69.6 Thrombocytopenia, unspecified; N25.81 Secondary hyperparathyroidism of renal origin; E79.0 Hyperuricemia without signs of inflammatory arthritis and tophaceous disease; N39.0 Urinary tract infection, site not specified
CPT/HCPCS: 76770

== ENCOUNTER → 2018-10-22 | Outpatient (CLI) | payer MEDICARE, OTHER ==
--- NOTE | 2018-10-22 15:38 | Diagnostic Imaging Report ---
PROCEDURE: US right lower extremity venous. TECHNIQUE: Multiple real-time grayscale images were obtained over the right lower extremity in various projections. Additional spectral analysis and color Doppler duplex images were also obtained. INDICATION: Right leg swelling. FINDINGS: There is no evidence of a right lower extremity DVT. Right lower extremity deep venous system shows normal compressibility with normal response to augmentation and Valsalva. Moderate subcutaneous edema is noted. IMPRESSION: No evidence of right lower extremity DVT. Dictated by: Dictated on workstation # [id number]
== END ==
LOC: RAD 14:21
PROVIDERS: ATTEND Nurse Practitioner Family
DX: M79.89 Other specified soft tissue disorders (principal)

== ENCOUNTER → 2018-12-18 | Outpatient (CLI) | payer MEDICARE, OTHER ==
[2018-12-18 16:53] LABS: HEMOGLOBIN 11.4 G/DL (13.3-17.7)
== END ==
LOC: LAB 16:29
PROVIDERS: ATTEND Family Medicine
DX: D64.9 Anemia, unspecified (principal); I50.9 Heart failure, unspecified
CPT/HCPCS: 36415; 82728; 83540; 85014; 85018

== ENCOUNTER 2019-01-08 13:15 | Outpatient (RCR) | payer MEDICARE, OTHER ==
[2019-01-01] MEDS: FERRIC CARBOXYMALTOSE INJ 750 MG in NS (IVPB) 250 ML IV SCH (15:05)
[2019-01-01 16:18] VITALS: BP 105/92
[~2019-01-08] VITALS: Ht 190.5 cm; Wt 127.0 kg
[2019-01-08] MEDS: FERRIC CARBOXYMALTOSE INJ 750 MG in NS (IVPB) 250 ML IV SCH (14:15)
[2019-01-08 14:50] VITALS: BP 108/68
== END 2019-01-08 14:50 | disposition home or self-care (01) ==
LOC: SDC 13:15
PROVIDERS: ATTEND Family Medicine
DX: D50.9 Iron deficiency anemia, unspecified (principal)
CPT/HCPCS: 96365

== ENCOUNTER → 2019-01-08 | Outpatient (CLI) | payer MEDICARE, OTHER ==
[2019-01-08 13:32] LABS: CALCIUM 9.5 MG/DL (8.5-10.1); CREATININE SERUM 1.39 MG/DL (0.60-1.30); POTASSIUM 3.2 MMOL/L (3.6-5.0)
== END ==
LOC: LAB 13:00
PROVIDERS: ATTEND Internal Medicine Cardiovascular Disease
DX: I25.10 Atherosclerotic heart disease of native coronary artery without angina pectoris (principal); I12.9 Hypertensive chronic kidney disease with stage 1 through stage 4 chronic kidney disease, or unspecified chronic kidney disease; N18.9 Chronic kidney disease, unspecified; E78.2 Mixed hyperlipidemia
CPT/HCPCS: 36415; 80048

== ENCOUNTER 2019-01-27 14:25 | Outpatient (RCR) | payer MEDICARE, OTHER | END 2019-02-26 10:18 | disposition home or self-care (01) | PROVIDERS: ATTEND Family Medicine | DX: R53.1 Weakness (principal) ==